=== PATIENT | female | born 1970 | race Caucasian/White ===

== ENCOUNTER 2020-04-26 13:58 | Outpatient (REF) | payer MEDICAID, SELFPAY | END 2020-04-26 13:59 | disposition home or self-care (01) | LOC: HO.LAB 13:58 | PROVIDERS: Visit Provider Internal Medicine | DX: Z20.828 Contact with and (suspected) exposure to other viral communicable diseases (principal) | CPT/HCPCS: C9803; U0003 ==

== ENCOUNTER 2021-03-14 13:25 | Outpatient (REF) | payer MEDICAID, SELFPAY | END 2021-03-14 13:26 | disposition home or self-care (01) | LOC: HO.LAB 13:25 | PROVIDERS: PCP Registered Nurse Community Health; Visit Provider Obstetrics & Gynecology | DX: R87.612 Low grade squamous intraepithelial lesion on cytologic smear of cervix (LGSIL) (principal) | CPT/HCPCS: 57454; 88305 ==

== ENCOUNTER 2021-04-11 13:56 | Outpatient (REF) | payer MEDICAID, SELFPAY ==
[2021-04-11 14:50] LABS: Hematocrit 36.4 % (37.0-47.0); Hemoglobin 11.6 g/dl (12.0-16.0); Mean Corpuscular HGB Conc 31.9 g/dl (31.0-35.0); Mean Corpuscular Hemoglobin 26.7 pg (27.0-33.0); Mean Corpuscular Volume 83.9 fL (80.0-98.0); Mean Platelet Volume 10.4 fL (9.4-12.3); Platelet Count 250 X10*3/uL (160-400); Red Blood Count 4.34 X10*6/uL (4.20-5.50); Red Cell Distribution Width 14.3 % (11.0-16.0); White Blood Count 6.2 X10*3/uL (4.8-10.8)
[2021-04-11 15:45] LABS: HCG Quantitative < 2 mIU/mL; TSH reflex Free T4 1.05 uIU/mL (0.32-4.0)
== END 2021-04-11 13:57 | disposition home or self-care (01) ==
LOC: HO.LAB 13:56
PROVIDERS: PCP Registered Nurse Community Health; Visit Provider Obstetrics & Gynecology
DX: N92.0 Excessive and frequent menstruation with regular cycle (principal); N87.0 Mild cervical dysplasia; N93.9 Abnormal uterine and vaginal bleeding, unspecified
CPT/HCPCS: 36415; 84443; 84702; 85027; 99212

== ENCOUNTER 2021-04-23 12:51 | Outpatient (REF) | payer MEDICAID, SELFPAY ==
--- NOTE | ~2021-04-23 | US_ITS ---
EXAMINATION: US PELVIS CLINICAL INFORMATION: Abnormal uterine and vaginal bleeding. COMPARISON: None TECHNIQUE: Ultrasound of the pelvis is performed using both transabdominal and transvaginal transducers along with Doppler. Transvaginal imaging is performed due to inadequate visualization transabdominally. FINDINGS: Uterus: The uterus is anteverted, anteflexed and measures 7.2 cm in length, 3.7 seen AP and 4.0 cm in transverse dimension. The double wall endometrial thickness is 0.39 cm. The uterus is smooth in contour and has normal myometrial echogenicity. No visible fibroid. There are numerous nabothian cysts and calcification seen in the cervix. Adnexa: Both ovaries are visualized. There is normal color flow to the adnexa. There is no ovarian torsion. There is no pelvic ascites or fluid collection. Right ovary measures 2.6 x 1.36 x 1.57 cm and volume 2.92 mL. It appears unremarkable. Left ovary measures 2.08 x 1.26 x 2.24 cm and volume 3.01 mL. There is no free fluid in the cul-de-sac. US/US pelvic and transvaginal IMPRESSION: Several nabothian cysts in the cervix with calcification. Unremarkable ovaries. There is no free fluid in cul-de-sac.
== END 2021-04-23 12:52 | disposition home or self-care (01) ==
LOC: HO.US 12:51
PROVIDERS: PCP Registered Nurse Community Health; Visit Provider Obstetrics & Gynecology
DX: N93.9 Abnormal uterine and vaginal bleeding, unspecified (principal)
CPT/HCPCS: 76830; 76856

== ENCOUNTER 2021-04-24 13:41 | Outpatient (REF) | payer MEDICAID, SELFPAY ==
--- NOTE | ~2021-04-24 | MM_ITS ---
EXAMINATION: MM SCREENING DIGITAL BREAST TOMOSYNTHESIS, BILATERAL CLINICAL INFORMATION: Screening. Asymptomatic. The lifetime risk of breast cancer based on the Tyrer-Cuzick Model is 12%. COMPARISON: Mammography: 10/02/2017, 09/19/2016 TECHNIQUE: Digital breast tomosynthesis is performed in both the craniocaudal and mediolateral oblique views along with computer-aided detection (CAD). Synthesized 2D images are generated from the tomosynthesis. FINDINGS: The breasts are heterogeneously dense, which may obscure small masses (ACR BI-RADS breast composition Category c). There are no significant masses, abnormal calcifications, or other abnormalities. MM/MM tomosynthesis screening BI IMPRESSION: No mammographic evidence of malignancy. ASSESSMENT: BI-RADS 1: Negative RECOMMENDATION: Routine annual mammography screening. This patient's information was entered into a reminder system with a target due date for their next mammogram.
== END 2021-04-24 13:42 | disposition home or self-care (01) ==
LOC: HO.MAMMO 13:41
PROVIDERS: PCP Nurse Practitioner Family; Visit Provider Advanced Practice Midwife
DX: Z12.31 Encounter for screening mammogram for malignant neoplasm of breast (principal)
CPT/HCPCS: 77063; 77067

== ENCOUNTER 2021-05-08 12:58 | Outpatient (REF) | payer MEDICAID, SELFPAY ==
[2021-05-10 04:28] LABS: CT PCR NOT DETECTED (Not Detect.); NG PCR NOT DETECTED (Not Detect.)
== END 2021-05-08 12:59 | disposition home or self-care (01) ==
LOC: HO.LAB 12:58
PROVIDERS: PCP Registered Nurse Community Health; Visit Provider Obstetrics & Gynecology
DX: N92.0 Excessive and frequent menstruation with regular cycle (principal); N87.0 Mild cervical dysplasia
CPT/HCPCS: 58100; 87491; 87591; 88305

== ENCOUNTER → 2021-05-23 13:59 | Outpatient (BNVA) | payer MEDICAID, SELFPAY | PROVIDERS: PCP Registered Nurse Community Health; Visit Provider Obstetrics & Gynecology | DX: N92.0 Excessive and frequent menstruation with regular cycle (principal) | CPT/HCPCS: 99212 ==

== ENCOUNTER 2022-12-30 15:46 | Outpatient (REF) | payer MEDICAID, SELFPAY ==
[2022-12-30 18:14] LABS: TSH reflex Free T4 1.73 uIU/mL (0.32-4.0); Vitamin D 25-OH Total 78.7 ng/mL (>30)
== END 2022-12-30 15:47 | disposition home or self-care (01) ==
LOC: HO.HHCL 15:46
PROVIDERS: Visit Provider Registered Nurse
DX: E03.8 Other specified hypothyroidism (principal); E55.9 Vitamin D deficiency, unspecified
CPT/HCPCS: 36415; 82306; 84443

== ENCOUNTER 2023-03-10 08:43 | Outpatient (REF) | payer MEDICAID, SELFPAY ==
[2023-03-10 11:35] LABS: MANUAL DIFF FLAG NO
[2023-03-10 11:44] LABS: Basophils Percent Auto 0.6 % (0-2); Hematocrit 38.7 % (37.0-47.0); Hemoglobin 12.2 g/dl (12.0-16.0); Imm Gran Abs Auto 0.02 X10*3/uL (0.00-0.03); Imm Gran Pct Auto 0.4 % (0.0-0.4); Lymphocytes Absolute Auto 1.5 X10*3/uL (1.2-4.9); Lymphocytes Percent Auto 28.7 % (20-40); Mean Corpuscular HGB Conc 31.5 g/dl (31.0-35.0); Mean Corpuscular Hemoglobin 27.1 pg (27.0-33.0); Mean Corpuscular Volume 85.8 fL (80.0-98.0); Mean Platelet Volume 11.5 fL (9.4-12.3); Monocytes Absolute Auto 0.4 X10*3/uL (0.1-1.2); Neutrophils Absolute Auto 3.3 x10*3/uL (2.0-8.3); Neutrophils Percent Auto 62.3 % (45-73); Platelet Count 219 X10*3/uL (160-400); Red Blood Count 4.51 X10*6/uL (4.20-5.50); Red Cell Distribution Width 13.6 % (11.0-16.0); White Blood Count 5.2 X10*3/uL (4.8-10.8)
[2023-03-10 11:59] LABS: Estimated Average Glucose 114 mg/dL; Hemoglobin A1c % 5.6 % (<6.0)
[2023-03-10 12:45] LABS: Alanine Aminotransferase 6 U/L (0-31); Albumin Level 4.4 g/dL (3.5-5.0); Alkaline Phosphatase 122 U/L (39-117); Anion Gap 12 (12-20); Aspartate Amino Transferase 13 U/L (5-31); Bilirubin Total 0.6 mg/dL (0.0-1.0); Blood Urea Nitrogen 12 mg/dL (9-16); Calcium 9.6 mg/dL (8.4-10.2); Carbon Dioxide 24 mmol/L (22-29); Chloride 106 mmol/L (96-108); Cholesterol 216 mg/dL (<200); Estimated Glomerular Filt Rate 57; Glucose Random 124 mg/dL (60-115); HDL Cholesterol 43 mg/dL (>40); LDL Cholesterol Calculated 144 mg/dL (<100); Potassium 3.8 mmol/L (3.3-5.1); Sodium 138 mmol/L (135-145); Total Protein 7.6 g/dL (6.5-8.0); Triglycerides 149 mg/dL (<150)
== END 2023-03-10 08:44 | disposition home or self-care (01) ==
LOC: HO.HHCL 08:43
PROVIDERS: PCP Registered Nurse Psychiatric/Mental Health; Visit Provider Registered Nurse Psychiatric/Mental Health
DX: Z79.899 Other long term (current) drug therapy (principal)
CPT/HCPCS: 36415; 80053; 80061; 83036; 85025

== ENCOUNTER 2023-07-21 13:21 | Outpatient (AMB) | payer MEDICAID, SELFPAY ==
--- NOTE | 2023-07-21 13:25 | A.OFFVIS_ITS ---
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 Complaining of irregular menstrual cycles associated with passage of blood clots and pelvic cramping. In addition the patient is complaining of leakage of urine upon sneezing, coughing or lifting heavy object Last Pap/HPV was in 03/29 [facility], followed by colpo/biopsy which showed MADHAV 1 Last Mammogram was in 04/29 was BI-RADS 1 No previous screening Colonoscopy [facility] [place] Medical History ASCUS with positive high risk HPV cervical Sjogren syndrome with central nervous system involvement Hypothyroidism PTSD (post-traumatic stress disorder) Schizoaffective disorder Social History Patient Tobacco Use Status: Never used Tobacco Female Reproductive History Menstrual Age of Menarche: 16 Duration of menses: 6-7 days Date of last menstrual period: 07/15/23 Total pregnancies: 0 Full term: 0 History of abnormal pap smear: Yes (2016 ascus HPV) Review of Systems Const All systems reviewed & are unremarkable except as noted in HPI and below Card Reports as per HPI Resp Reports as per HPI GI Reports as per HPI and Reports no additional complaints Reports as per HPI Physical Exam Vital Signs: Last Vital Signs BP 116/62 07/21/23 13:47 Const General: cooperative, healthy appearing and comfortable Chest Chest palpation & inspection: normal inspection of the chest and normal palpation of entire chest wall Breast/axilla inspection: normal inspection of the breasts and normal inspection of the axillae Breast/axilla palpation: normal palpation of the breasts, normal palpation of the axillae and no axillary lymphadenopathy Resp Effort & Inspection: normal respiratory effort Auscultation: clear to auscultation bilaterally Percussion: percussion normal Cardio Palpation: normal PMI Rate: regular rate Rhythm: regular rhythm Heart sounds: no murmurs and no rubs Peripheral pulses: Peripheral pulses 2+ throughout GI Inspection: Yes normal to inspection Palpation (GI): Soft to palpation, nontender, no guarding, not rigid and No hepatosplenomegaly present Percussion: Yes normal to percussion Auscultation: normal bowel sounds Rectal Exam - Female: deferred General: Yes bladder normal to palpation External Female Exam: No lesion Speculum Exam - Vagina: normal appearance of the vagina, normal palpation, normal vaginal discharge and not erythematous Speculum Exam - Cervix: normal appearance of the cervix and normal palpation Bimanual exam- vagina & uterus: normal bimanual exam, normal palpation, uterine size normal, bladder normal to palpation, consistency normal and normal palpation Bimanual Exam- Adnexa, other: normal adnexae, no masses and no tenderness Assessment & Plan Assessment & Plan (1) Well woman exam: Comment: MADHAV 1 in 2020 Code(s): Z01.419 - Encounter for gynecological examination (general) (routine) without abnormal findings Plan: Co testing done. Counseled the patient about the recommended dietary allowance of 1200 mg of Calcium & 600 IU of vitamin D. Mammogram ordered. The patient was referred to GI for screening colonoscopy . The patient was instructed to perform monthly self-breast exams and schedule annual exam in a year. All questions answered and the patient verbalized understanding. (2) Abnormal uterine bleeding (AUB): Code(s): N93.9 - Abnormal uterine and vaginal bleeding, unspecified Plan: Co testing done, GC and chlamydia taken CBC, TSH, prolactin, FSH/LH, HCG, and pelvic ultrasound ordered. Discussed with the patient the different causes of abnormal bleeding including thyroid disorders, uterine and ovarian pathology, endometrial hyperplasia, carcinoma and other potential causes. Discussed with the patient the work up including CBC (to r/o anemia), TSH, prolactin, FSH/LH, pelvic Ultrasound, endometrial biopsy to r/o endometrial pathology. All questions answered and the patient verbalized understanding. Instructed the patient to schedule an appointment for an endometrial biopsy in 2 weeks. (3) Urine incontinence: Code(s): R32 - Unspecified urinary incontinence Plan: Urine dip done in the office showed microscopic hematuria, will send urine culture. To check the results and treat accordingly. Instructions given the patient to schedule a 2 week follow-up appointment (4) Microscopic hematuria: Code(s): R31.29 - Other microscopic hematuria Plan: Urine dip showed microscopic hematuria, will send urine for culture, if positive will treat if negative repeat urine dip in 2 weeks, if persistent microscopic hematuria will order CT scan and refer to urology. Instructions given the patient to schedule a 2 week urine dip appointment Orders: Orders MM tomosynthesis screening BI Today Z12.31 - Encounter for screening mammogram for malignant neoplasm of breast HCG Quantitative Today N93.9 - Abnormal uterine and vaginal bleeding, unspecified Complete Blood Count no Diff Today N93.9 - Abnormal uterine and vaginal bleeding, unspecified Follicle Stimulating Hormone Today N93.9 - Abnormal uterine and vaginal bleeding, unspecified Lutenizing Hormone Today N93.9 - Abnormal uterine and vaginal bleeding, unspecified TSH reflex Free T4 Today N93.9 - Abnormal uterine and vaginal bleeding, unspecified Prolactin Today N93.9 - Abnormal uterine and vaginal bleeding, unspecified US pelvic and transvaginal Today N93.9 - Abnormal uterine and vaginal bleeding, unspecified Referrals Gastroenterology Referral Z12.11 - Encounter for screening for malignant neoplasm of colon Coding Level of Care Code Est Pt Prev Care 40-64y(20656) Diagnoses Well woman exam Z01.419 Abnormal uterine bleeding (AUB) N93.9 Urine incontinence R32 Microscopic hematuria R31.29
[2023-07-21 13:47] VITALS: BP 116/62
== END 2023-07-21 14:16 | disposition home or self-care (01) ==
LOC: HO.HWS 13:21
PROVIDERS: PCP Registered Nurse Psychiatric/Mental Health; Visit Provider Obstetrics & Gynecology
DX: Z01.419 Encounter for gynecological examination (general) (routine) without abnormal findings (principal); N93.9 Abnormal uterine and vaginal bleeding, unspecified; R32 Unspecified urinary incontinence; R31.29 Other microscopic hematuria
CPT/HCPCS: 99396

== ENCOUNTER 2023-07-21 13:21 | Outpatient (REF) | payer MEDICAID, SELFPAY ==
[2023-07-21 17:23] LABS: CT PCR NOT DETECTED (Not Detect.); NG PCR NOT DETECTED (Not Detect.)
[2023-07-25 05:44] LABS: HPV 16 RNA NOT DETECTED (NOT DETECTED); HPV mRNA E6/E7 rflx Detected (Not Detected)
== END 2023-07-21 13:22 | disposition home or self-care (01) ==
LOC: HO.LNP 13:21
PROVIDERS: PCP Registered Nurse Psychiatric/Mental Health; Visit Provider Obstetrics & Gynecology
DX: Z01.419 Encounter for gynecological examination (general) (routine) without abnormal findings (principal); Z11.51 Encounter for screening for human papillomavirus (HPV); N93.9 Abnormal uterine and vaginal bleeding, unspecified; R32 Unspecified urinary incontinence; R31.29 Other microscopic hematuria
CPT/HCPCS: 0353U; 87086; 87624; 87625; 88142; 99396

== ENCOUNTER 2023-07-21 14:16 | Outpatient (REF) | payer MEDICAID, SELFPAY | END 2023-07-21 14:17 | disposition home or self-care (01) | LOC: HO.LAB 14:16 | PROVIDERS: Visit Provider Obstetrics & Gynecology | DX: Z13.89 Encounter for screening for other disorder (principal) ==

== ENCOUNTER 2023-08-04 13:19 | Outpatient (REF) | payer MEDICAID, SELFPAY ==
--- NOTE | ~2023-08-04 | US_ITS ---
EXAMINATION: US PELVIS CLINICAL INFORMATION: Abnormal uterine bleeding, last menstrual period 07/15/2023. COMPARISON: Pelvic ultrasound of 04/23/2021. TECHNIQUE: Ultrasound of the pelvis is performed using both transabdominal and transvaginal transducers along with Doppler. Transvaginal imaging is performed due to inadequate visualization transabdominally. FINDINGS: The uterus measures 7.7 x 2.9 x 3.6 cm. No discrete fibroids appreciated. Endometrial thickness is 5 mm. Echogenic foci characteristic of calcifications and nabothian cysts in the cervix. Similar findings demonstrated on the prior exam. No significant free fluid. Right ovary measures 2.3 x 1.6 x 1.1 cm, volume 2.1 mL and is unremarkable. Left ovary measures 1.9 x 1.5 x 1.3 cm, volume of 1.9 mL and is unremarkable. US/US pelvic and transvaginal IMPRESSION: Endometrial thickness is 5 mm. Gynecologic consultation, correlation with clinical exam and possible biopsy recommended for this patient with abnormal uterine bleeding. Unremarkable bilateral ovaries. No discrete fibroids.
== END 2023-08-04 13:20 | disposition home or self-care (01) ==
LOC: HO.US 13:19
PROVIDERS: PCP Registered Nurse Psychiatric/Mental Health; Visit Provider Obstetrics & Gynecology
DX: N93.9 Abnormal uterine and vaginal bleeding, unspecified (principal)
CPT/HCPCS: 76830; 76856

== ENCOUNTER 2023-08-25 11:52 | Outpatient (REF) | payer MEDICAID, SELFPAY | END 2023-08-25 11:53 | disposition home or self-care (01) | LOC: HO.MAMMO 11:52 | PROVIDERS: PCP Registered Nurse; Visit Provider Obstetrics & Gynecology | DX: Z12.31 Encounter for screening mammogram for malignant neoplasm of breast (principal) | CPT/HCPCS: 77063; 77067 ==

== ENCOUNTER → 2023-08-25 11:55 | Outpatient (BNV) | payer MEDICAID, SELFPAY | PROVIDERS: PCP Registered Nurse; Visit Provider Radiology Diagnostic Radiology | DX: Z12.31 Encounter for screening mammogram for malignant neoplasm of breast (principal) | CPT/HCPCS: 77063; 77067 ==

== ENCOUNTER 2023-08-26 12:44 | Outpatient (AMB) | payer MEDICAID, SELFPAY ==
--- NOTE | 2023-08-26 13:14 | A.OFFVIS_ITS ---
Intake Vital Signs 08/26/23 13:17 Height 5 ft 4 in Weight 222 lb 10.67 oz BMI 38.2 Intake Visit Reasons: pain with intercourse Cancer Genetic Counselor Required: No Information Interpreted: non-clinical & clinical Data Entry Manager: Data Entry Manager Present (Malorie WHITE) Accompanied by: Self / Same As Patient Allergies Sulfa (Sulfonamide Antibiotics) [SULFA (SULFONAMIDE ANTIBIOTICS)] Allergy (Unknown, Verified 08/26/23 13:17) UNKNOWN HPI HPI Comments History of Present Illness Details Presenting complaining of vaginal irritation, pain and discharge that started 2 weeks ago [facility] Medical History ASCUS with positive high risk HPV cervical Sjogren syndrome with central nervous system involvement Hypothyroidism PTSD (post-traumatic stress disorder) Schizoaffective disorder Social History Patient Tobacco Use Status: Never used Tobacco Female Reproductive History Menstrual Age of Menarche: 16 Review of Systems Const All systems reviewed & are unremarkable except as noted in HPI and below Physical Exam Vital Signs: BMI result Body Mass Index 38.2 General: Yes no CVA tenderness External Female Exam: normal external appearance and normal appearance of the urethra Speculum Exam - Vagina: normal appearance of the vagina, normal palpation, no lesions and no masses Speculum Exam - Cervix: normal appearance of the cervix, normal palpation, no lesions, no masses and nontender Bimanual exam- vagina & uterus: normal bimanual exam, normal palpation, uterine size normal, normal palpation, uterine shape normal, No Cervical tenderness present and non-tender Bimanual Exam- Adnexa, other: normal adnexae Back/Spine/Pelvis Back: no CVA tenderness Assessment & Plan Assessment & Plan (1) Bacterial vaginosis: Code(s): N76.0 - Acute vaginitis; B96.89 - Other specified bacterial agents as the cause of diseases classified elsewhere Plan: GC and chlamydia cultures with BV panel taken. Per CDC recommendation, will screen for STI, HepBs Ag, HIV, RPR, Hep C Ab ordered. Will treat with Flagyl 500 mg p.o. b.i.d. x 7 days, Instructions given to the patient to refrain from sexual activity or to use condoms consistently and correctly during the BV treatment regimen, not to douch, it might increase the risk for relapse, and to call if symptoms persist or recur. Orders: Orders Hepatitis C Antibody Today B96.89 - Other specified bacterial agents as the cause of diseases classified elsewhere, N76.0 - Acute vaginitis Hepatitis B Surface Antigen Today B96.89 - Other specified bacterial agents as the cause of diseases classified elsewhere, N76.0 - Acute vaginitis HIV Ab/Ag Today B96.89 - Other specified bacterial agents as the cause of diseases classified elsewhere, N76.0 - Acute vaginitis Syphilis Screen Today B96.89 - Other specified bacterial agents as the cause of diseases classified elsewhere, N76.0 - Acute vaginitis Medications: New metronidazole 500 mg PO BID 14 tabs 0RF 7 days Coding Level of Care Code Est Pt Level 3 (89672) Diagnoses Bacterial vaginosis N76.0; B96.89
[2023-08-26 13:17] VITALS: BMI 38.2
== END 2023-08-26 13:35 | disposition home or self-care (01) ==
PROVIDERS: PCP Registered Nurse; Visit Provider Obstetrics & Gynecology
DX: N76.0 Acute vaginitis (principal); B96.89 Other specified bacterial agents as the cause of diseases classified elsewhere
CPT/HCPCS: 99213

== ENCOUNTER 2023-08-26 12:44 | Outpatient (REF) | payer MEDICAID, SELFPAY ==
[2023-08-26 18:07] LABS: CT PCR NOT DETECTED (Not Detect.); NG PCR NOT DETECTED (Not Detect.)
[2023-08-27 13:52] LABS: BV Int Neg Control Negative (Negative); BV Int Pos Control Positive (Positive)
== END 2023-08-26 12:45 | disposition home or self-care (01) ==
LOC: HO.LNP 12:44
PROVIDERS: PCP Registered Nurse; Visit Provider Obstetrics & Gynecology
DX: N76.0 Acute vaginitis (principal); B96.89 Other specified bacterial agents as the cause of diseases classified elsewhere; N94.10 Unspecified dyspareunia
CPT/HCPCS: 0353U; 87480; 87510; 87660; 99212

== ENCOUNTER 2023-09-09 11:31 | Outpatient (AMB) | payer MEDICAID, SELFPAY ==
[2023-09-09 11:55] VITALS: BP 130/82; BMI 38.1
--- NOTE | 2023-09-09 11:55 | A.OFFVIS_ITS ---
Intake Vital Signs 09/09/23 11:55 Height 5 ft 4 in Weight 222 lb BMI 38.1 BP 130/82 Intake Visit Reasons: Colpo/ EMB/Ultrasound follow up Vending Supervisor Required: No Wide Area Network Systems Administrator: Wide Area Network Systems Administrator Present (Aidyn) Allergies Sulfa (Sulfonamide Antibiotics) [SULFA (SULFONAMIDE ANTIBIOTICS)] Allergy (Unknown, Verified 09/09/23 11:56) UNKNOWN Post menopausal: No HPI HPI Comments History of Present Illness Details Presenting for colposcopy for ascus/HPV positive and EMB for AUB [facility] Medical History (Updated 09/09/23 @ 12:07 by Tre King MD) ASCUS with positive high risk HPV cervical Sjogren syndrome with central nervous system involvement Hypothyroidism PTSD (post-traumatic stress disorder) Schizoaffective disorder Social History Patient Tobacco Use Status: Never used Tobacco Female Reproductive History Menstrual Age of Menarche: 16 control method: none Date of last pap smear: 07/22/23 (ASCUS +HPV) Review of Systems Const All systems reviewed & are unremarkable except as noted in HPI and below Reports as per HPI and Reports no additional complaints GI Reports no additional complaints Reports no additional complaints Physical Exam Vital Signs: Last Vital Signs BP 130/82 09/09/23 11:55 BMI result Body Mass Index 38.1 Office Procedures Colposcopy Before the procedure was started discussed with the patient the procedure, alternatives & all the risks associated with the procedure (bleeding, infection, injury to vagina, bladder, vessels, possible need for transfusion with all its risks) then patient signed the consent Pap smear = ascus/HPV positive Urine test done in the office was negative Speculum inserted, acetic acid used Colposcopy done Transformation zone seen, acetowhite lesions identified at 9+ 11+1 o?clock, cervical biopsies taken from 9+11 o?clock, ECC done afterwards. Vaginoscopy of the upper vagina showed no evidence of any aceto-white lesions Monsel solution used for hemostasis. The patient tolerated well . At the end the patient was instructed to call if temp>100.4, abdominal pain, n/v, bleeding; The patient was given the following instructions: nothing per vagina, no intercourse or bath tub use. All questions answered the patient verbalized understanding. Instructed the patient to make an appointment in 2 weeks for follow-up This note was generated with a voice recognition program. Some errors may have been overlooked during the review of this note. Sometimes these errors may affect the content or meaning of a given sentence. [id number] of cervix including upper vagina with biopsy and ECC Procedure code (CPT) selection complete Endometrial Biopsy Details: The patient was counseled regarding the indication and benefits of endometrial sampling to rule out endometrial pathology including not limited to endometrial hyperplasia or endometrial cancer and others; The alternatives (Either do nothing vs. hysteroscopy D&C) & the risks were discussed with the patient including but not limited: pain, uterine perforation, bleeding, infection, possible injury to bladder, bowel, ureter, possible need for blood transfusion with all its possible risks. The patient verbalized understanding all questions answered and signed consent. Urine test done in the office was negative The patient was placed into the dorsal lithotomy position; a speculum was inserted in the vagina. Using aseptic technique for the procedure, the cervix was cleansed with Betadine. The anterior lip of the cervix was grasped with a single tooth tenaculum. The uterus was sounded to 7 cm with a 4 mm Pipelle was used. Tissues samples were obtained and placed in formalin, in a patient labeled container and sent to the pathology department. At the end of the procedure, there was minimal bleeding noted The patient tolerated the procedure well and was discharged in good condition with the following instructions: Nothing in the vagina until the bleeding stops. No sex until the bleeding stops, to call if any of the following occurs: fever (>100.4), flu-like symptoms, abdominal pain, heavy bleeding, four smelling vaginal discharge. The patient was instructed to schedule a Follow up appointment in 2 weeks to discuss pathology results of the biopsy and treatment options. This note was generated with a voice recognition program. Some errors may have been overlooked during the review of this note. Sometimes these errors may affect the content or meaning of a given sentence. [id number]-Jmoqmwwirzk Biopsy Results AMB Test Urine AMB Test Urine Negative Last Edit by CINDY Armstrong on 09/09/23 11:58 Assessment & Plan Assessment & Plan (1) Abnormal uterine bleeding (AUB): Code(s): N93.9 - Abnormal uterine and vaginal bleeding, unspecified Plan: EMB done see procedure note (2) ASCUS with positive high risk HPV cervical: Comment: 2016 ascus HPV positive, colpo negative Code(s): R87.610 - Atypical squamous cells of undetermined significance on cytologic smear of cervix (ASC-US); R87.810 - Cervical high risk human papillomavirus (HPV) DNA test positive Plan: Colposcopy/biopsy/ECC done, see procedure note Orders: Orders AMB HCG Urine Test Today Z32.02 - Encounter for test, result negative AMB Colposcopy Today R87.610 - Atypical squamous cells of undetermined significance on cytologic smear of cervix (ASC-US), R87.810 - Cervical high risk human papillomavirus (HPV) DNA test positive AMB Endometrial Biopsy Today N93.9 - Abnormal uterine and vaginal bleeding, unspecified Coding Level of Care Code Procedure Only Diagnoses Abnormal uterine bleeding (AUB) N93.9 ASCUS with positive high risk HPV cervical R87.610; R87.810 CPT Codes Colposcopy - CPT: 27702-Qydntpeql of cervix including upper vagina with biopsy and ECC ([id number]) Endometrial Biopsy - CPT: 55584-Ndljorupljy Biopsy ([id number])
== END 2023-09-09 13:00 | disposition home or self-care (01) ==
LOC: HO.HWS 11:31
PROVIDERS: PCP Registered Nurse; Visit Provider Obstetrics & Gynecology
DX: R87.610 Atypical squamous cells of undetermined significance on cytologic smear of cervix (ASC-US) (principal); R87.810 Cervical high risk human papillomavirus (HPV) DNA test positive; N93.9 Abnormal uterine and vaginal bleeding, unspecified; Z32.02 Encounter for pregnancy test, result negative
CPT/HCPCS: 57454; 58110

== ENCOUNTER 2023-09-09 11:31 | Outpatient (REF) | payer MEDICAID, SELFPAY | END 2023-09-09 11:32 | disposition home or self-care (01) | LOC: HO.LNP 11:31 | PROVIDERS: PCP Registered Nurse; Visit Provider Obstetrics & Gynecology | DX: R87.610 Atypical squamous cells of undetermined significance on cytologic smear of cervix (ASC-US) (principal); R87.810 Cervical high risk human papillomavirus (HPV) DNA test positive | CPT/HCPCS: 88305 ==

== ENCOUNTER 2023-09-09 12:25 | Emergency (ER) | payer MEDICAID, SELFPAY ==
[2023-09-09 12:41] VITALS: BP 117/69; PULSE 80; RESP 19; TEMP 36.6; O2SAT 98; BMI 38.6
--- NOTE | 2023-09-09 13:04 | PC.NURSE ---
Patient comes to the ER after getting biopsy done down there . Patient reports she is having some increased anxiety regarding the biopsy potentially coming back as cancer. Pt relays that she is having some increased stress due to the whole situations due to her medical related PTSD. Pt is calm and cooperative, offering no complaints to this RN. endorses 4/10 pain around vaginal area
[2023-09-09 13:12] VITALS: RESP 14
--- NOTE | 2023-09-09 13:20 | ED.GENADULT ---
HPI - General Adult General Chief complaint: Anxiety Stated complaint: Crisis Time Seen by Provider: 09/09/23 13:20 Source: patient Mode of arrival: ambulatory Limitations: no limitations History of Present Illness HPI narrative: Patient is a 53 year old assigned female at with a history of recent cervical dysplasia diagnosis presenting to the emergency department today with increased anxiety around her recent diagnosis. Patient states that she is feeling more worked up after being told she may have cervical cancer at her OBGYN appointment. Patient states that she had a therapist but she was recently promoted and she hasn't established with someone else in the practice. Patient denies any thoughts of harming herself or others, dizziness, lightheadedness, abdominal pain, nausea, vomiting, fever, chills, blurry vision, double vision, loss of vision, chest pain, difficulty breathing, shortness of breath, back pain, night sweats, pain with urination, increased urinary frequency, increased urinary urgency, blood in her urine or stool, syncope or a near syncopal episode, recent trauma or falls, bowel incontinence, bladder incontinence, bowel retention, bladder retention, or any other complaints at this time. Relieving factors: none Exacerbating factors: none Associated symptoms: denies other symptoms Treatments prior to arrival: none Related Data Home Medications Medication Instructions Recorded Confirmed mirtazapine 15 mg tablet (Remeron) 15 mg PO DAILY 03/14/21 oxcarbazepine 300 mg tablet 300 mg PO BID 03/14/21 (Trileptal) polyethylene glycol 3350 17 17 g PO DAILY 03/14/21 gram/dose oral powder (Miralax) levothyroxine 75 mcg tablet 75 mcg PO DAILY 07/21/23 (Levoxyl) linaclotide 72 mcg capsule 72 mcg PO DAILY 07/21/23 (Linzess) olanzapine 10 mg tablet (Zyprexa) 10 mg PO DAILY 07/21/23 oxcarbazepine 150 mg tablet 150 mg PO DAILY 07/21/23 (Trileptal) pilocarpine HCl 5 mg tablet 10 mg PO TID 07/21/23 propranolol 40 mg tablet 40 mg PO BID 07/21/23 fluticasone propionate 50 spray intranasal 09/09/23 mcg/actuation nasal spray,suspension Allergies Allergy/AdvReac Type Severity Reaction Status Date / Time Sulfa (Sulfonamide Allergy Unknown UNKNOWN Verified 09/09/23 12:41 Antibiotics) [SULFA (SULFONAMIDE ANTIBIOTICS)] Review of Systems Constitutional: Constitutional: Reports no additional constitutional complaints, Denies chills, Denies fever(s) and Denies night sweats Eyes: Eyes: Reports no additional eye complaints, Denies blurry vision, Denies change in vision, Denies diplopia, Denies eye discharge, Denies loss of vision and Denies eye pain ENT: Denies dizziness Cardiovascular: Cardiovascular: Reports no additional cardiovascular complaints, Denies chest pain, Denies lightheadedness, Denies Loss of Consciousness and Denies dyspnea Respiratory: Respiratory: Reports no additional respiratory complaints and Denies dyspnea Gastrointestinal: Gastrointestinal: Reports no additional gastrointestinal complaints, Denies abdominal pain, Denies melena, Denies hematochezia, Denies change in bowel habits and Denies change in stool character Genitourinary: Genitourinary: Denies hematuria, Denies urinary frequency, Denies dysuria, Denies urinary incontinence, Denies urinary hesitancy and Denies urinary urgency Musculoskeletal: Musculoskeletal: Reports no additional musculoskeletal complaints, Denies numbness and Denies tingling Neurologic: Denies dizziness, Denies loss of vision, Denies numbness and Denies tingling Psychiatric: Psychiatric: Reports anxiety, Denies homicidal ideation and Denies suicidal ideation Endocrine: Endocrine: Reports no additional endocrine complaints Hematologic/Lymphatic: Hematologic/Lymphatic: Reports no additional hematologic/lymphatic complaints Allergic/Immunologic: Allergic/Immunologic: Reports no additional allergic/immunologic complaints [facility] Past Medical History Attestation statement: The following information was validated with the patient. Source: old records reviewed and nursing notes reviewed Medical History ASCUS with positive high risk HPV cervical Sjogren syndrome with central nervous system involvement Hypothyroidism PTSD (post-traumatic stress disorder) Schizoaffective disorder Social History Social History Patient Tobacco Use Status: Never used Tobacco Smoked in Last 30 Days: No Use of substances other than those prescribed or required for medical reasons: Yes Substance Use Type: Marijuana Substance Use Frequency: Occasionally Advance Directives: Yes Advance Directives Information Provided: Yes Advance Directives on File: No Patient : No Physical Exam ED Vital Signs: Vital Signs - 24 hr 09/09/23 12:41 09/09/23 13:12 09/09/23 13:30 Temperature 98 F 98.0 F Pulse Rate 80 80 Respiratory Rate 19 14 19 Blood Pressure 117/69 117/69 Pulse Oximetry 98 98 Oxygen Delivery Method Room Air BMI result Body Mass Index 38.6 Const General: cooperative, no acute distress, alert and awake Nutritional Appearance: well nourished Orientation/consciousness: patient oriented x3 Limitations: no limitations HENMT Head: Yes normal to inspection and Yes atraumatic Ears: hearing grossly normal bilaterally and external ears normal General nose exam: Normal external nose present, no nasal discharge noted and no epistaxis Face and sinus: Yes normal facial exam, No abrasion and No laceration Mouth: Normal oral and palatal mucosa present, no drooling and no muffled voice Eyes General: appearance normal, both eyes and all related structures Periorbital: periorbital findings normal Eyelids: Yes eyelids normal Conjunctivae: conjunctivae normal Pupils: Equal, round and reactive pupils present EOM: EOMs intact bilaterally Neck Neck: Yes normal visual inspection, Yes full ROM and Yes no lymphadenopathy Chest Chest palpation & inspection: normal inspection of the chest Resp Effort & Inspection: normal respiratory effort and able to speak in complete sentences GI Inspection: Yes normal to inspection Neuro General: patient oriented x3 and moves all extremities Cranial nerves: Yes Equal, round and reactive pupils present Cognition (Neuro): normal cognition Motor exam (neuro): 5/5 motor strength present throughout Sensory Exam: Normal double simultaneous stimulation for sensation Coordination: [id number] test normal Extrem General: Yes normal to inspection, Yes full ROM and Yes capillary refill normal Psych Appearance: grossly normal Mental Status: mental status grossly normal Affect: Anxious affect present Attitude: cooperative Thought process: Normal thought process present Thought content: Normal thought content present Insight: Good insight present (Psych) Medical Decision Making Medical Decision Making MDM Narrative: Patient is a 53 year old assigned female at with a history of recent dysplasia of cervix diagnosis presenting to the emergency department today with increased anxiety. Patient's physical exam was unremarkable. I explained my physical exam findings to the patient. I answered all questions asked by the patient. I had a long conversation with the patient and provided as much information as appropriate for my scope of practice. Patient stated that she felt significantly better after conversing and would like to go home and establish with a new therapist. I stressed the importance of the patient taking her medication as prescribed. I stressed the importance of the patient following up with her primary care provider. I stressed the importance of the patient returning to the emergency department immediately if her symptoms were to worsen or if she were to develop any dizziness, shortness of breath, difficulty breathing, chest pain, blurry vision, loss of vision, nausea, vomiting, abdominal pain, fever, chills, back pain, or any other complaints. Patient verbalized agreement and understanding with this treatment plan and discharge. Differential Diagnosis Differential Diagnoses: The differential diagnosis associated with the presentation includes Anxiety Health anxiety Admission/Observation Consideration of admission/observation: Escalation of care including admission/observation considered Patient would have been admitted to the hospital had her clinical presentation warranted hospital admission. Discharge Plan Discharge Clinical Impression: Anxiety about health Patient Disposition: Home, Self-Care Instructions: Anxiety (ED) Additional Instructions: Please establish with a new therapist now that yours has been promoted. Follow up with your primary care provider. Return to the emergency department immediately if your symptoms worsen or if you develop any dizziness, shortness of breath, difficulty breathing, chest pain, blurry vision, loss of vision, nausea, vomiting, abdominal pain, fever, chills, back pain, or any other complaints. [facility]: [address] [place] [address] Walk in hours from 10am - 12pm Open from 10am - 12pm [facility] Crisis Services: [address] [place] [address] Walk in hours from 10am - 12pm Open 30/12 [facility]: [address] [place] [id number] [address] [place] [id number] Hours: M-F 8am to 8pm Friday and Friday 9am to 5pm Prescriptions: No Action oxcarbazepine [Trileptal] 300 mg tablet 300 mg PO BID mirtazapine [Remeron] 15 mg tablet 15 mg PO DAILY polyethylene glycol 3350 [Miralax] 17 gram/dose powder 17 g PO DAILY propranolol 40 mg tablet 40 mg PO BID oxcarbazepine [Trileptal] 150 mg tablet 150 mg PO DAILY olanzapine [Zyprexa] 10 mg tablet 10 mg PO DAILY levothyroxine [Levoxyl] 75 mcg tablet 75 mcg PO DAILY Linzess 72 mcg capsule 72 mcg PO DAILY pilocarpine HCl 5 mg tablet 10 mg PO TID fluticasone propionate 50 mcg/actuation spray,suspension intranasal Referrals: Mitzi Duffy FNP [Primary Care Provider] - Interventions: [place]-Suicide Risk Severity Scale Last Done: 09/09/23 13:01 ED Discharge Assessment Last Done: 09/09/23 13:30 Discharge Date/Time: 09/09/23 13:36 Print Language: Swedish
--- NOTE | 2023-09-09 13:27 | PC.NURSE ---
pt denies suicidal ideation, homicidal ideation, AH/VH. PRETTY Gomez talking with patient at this time
[2023-09-09 13:30] VITALS: BP 117/69; PULSE 80; RESP 19; TEMP 36.7; O2SAT 98
== END 2023-09-09 13:36 | disposition home or self-care (01) ==
PROVIDERS: Emergency Provider Emergency Medicine; PCP Registered Nurse
DX: F41.8 Other specified anxiety disorders (principal); N93.9 Abnormal uterine and vaginal bleeding, unspecified; R87.610 Atypical squamous cells of undetermined significance on cytologic smear of cervix (ASC-US); R87.810 Cervical high risk human papillomavirus (HPV) DNA test positive
CPT/HCPCS: 57454; 58110; 81025; 99284; 99285

== ENCOUNTER 2023-09-23 13:05 | Outpatient (AMB) | payer MEDICAID, SELFPAY ==
--- NOTE | 2023-09-23 13:30 | A.OFFVIS_ITS ---
Intake Vital Signs 09/23/23 13:33 Height 5 ft 4 in Weight 224 lb 13.944 oz BMI 38.6 BP 118/70 Intake Visit Reasons: Follow up Colpo/EMB/? pre-op Paster Hat Lining: Paster Hat Lining Present Allergies Sulfa (Sulfonamide Antibiotics) [SULFA (SULFONAMIDE ANTIBIOTICS)] Allergy (Unknown, Verified 09/09/23 12:41) UNKNOWN Is last menstrual period known: Yes Last menstrual period: 04/06/20 Post menopausal: No Patient : No Do you need a note to return to daycare/school/sports/work: Yes (for surgery on friday) HPI HPI Comments History of Present Illness Details Presenting post colpo /ECC/EMB for follow-up. The patient is doing well with no complaints. The pathology showed the following: A. Endocervix, curettage: Squamous mucosa with low-grade squamous intraepithelial lesion (mild dysplasia, MADHAV 1); endocervical glandular mucosa present. B. Endometrium, biopsy: Fragmented benign proliferative endometrium with possible benign polyp, and benign endocervical glandular mucosa; no atypia or carcinoma. C. Cervix, 1:00, biopsy: Squamous mucosa; negative for dysplasia; no endoce rvical glandular component present. D. Cervix, 9:00, biopsy: Squamous mucosa with low-grade squamous intraepithelial lesion (mild dysplasia, MADHAV 1); no endocervical glandular mucosa present. E. Cervix, 11:00, biopsy: Squamous mucosa; negative for dysplasia; no endocervical glandular component present The patient had cervical biopsy showing MADHAV 1 in 03/29 [facility] Medical History ASCUS with positive high risk HPV cervical Sjogren syndrome with central nervous system involvement Hypothyroidism PTSD (post-traumatic stress disorder) Schizoaffective disorder Social History Patient Tobacco Use Status: Never used Tobacco Substance Use Type: Marijuana Female Reproductive History Menstrual Age of Menarche: 16 Date of last menstrual period: 04/06/20 Total pregnancies: 2 Full term: 2 Review of Systems Card Reports as per HPI and Reports no additional complaints Resp Reports as per HPI and Reports no additional complaints GI Reports as per HPI and Reports no additional complaints Reports as per HPI Physical Exam Vital Signs: Last Vital Signs BP 118/70 09/23/23 13:33 BMI result Body Mass Index 38.6 Const General: cooperative, healthy appearing and comfortable Resp Effort & Inspection: normal respiratory effort Auscultation: clear to auscultation bilaterally Percussion: percussion normal Cardio Palpation: normal PMI Rate: regular rate Rhythm: regular rhythm Heart sounds: no murmurs and no rubs Peripheral pulses: Peripheral pulses 2+ throughout GI Inspection: Yes normal to inspection Palpation (GI): Soft to palpation, nontender, no guarding, not rigid and No hepatosplenomegaly present Percussion: Yes normal to percussion Auscultation: normal bowel sounds Rectal Exam - Female: deferred Assessment & Plan Assessment & Plan (1) Dysplasia of cervix, low grade (MADHAV 1): Comment: Persistent since 03/29 Code(s): N87.0 - Mild cervical dysplasia Plan: Discussed with the patient the pathology results of the colposcopy biopsies & endocervical curettage ( mild dysplasia-MADHAV 1). Discussed with the patient the sensitivity specificity, positive and negative predictive value in detecting cervical cancer in addition discussed the regression, persistence and progression rates. Since the MADHAV 1 lesions are persistent for the last 2 years options of treatment were discussed with the patient included the following continued observation versus excisional procedures. All the pros, cons, risks and benefits of each approach were discussed with the patient, the patient decided to proceed with loop electric excision procedure. All questions answered the patient verbalized understanding. (2) Abnormal uterine bleeding (AUB): Comment: Endometrial polyp on EMB pathology Code(s): N93.9 - Abnormal uterine and vaginal bleeding, unspecified Plan: Discussed with the patient the results the pathology showing possible endometrial polyp, recommended hysteroscopy D&C, possible polypectomy/myomectomy. Discussed with the patient the procedure , all benefits and risks including but not limited to inability to complete the procedure , insufficient endometrial tissue for a complete evaluation of the endometrial cavity , bleeding, infecti on, possible need for blood transfusion with all its risk ( HIV,syphilis, Hepatitis, anaphylaxis shock, others..), injury to bladder, rectum, possible need for laparoscopy/laparotomy or hysterectomy. The patient verbalized understanding and signed the consent. Instructions given the patient to schedule a 2 week postoperative appointment Coding Level of Care Code Est Pt Level 3 (90024) Diagnoses Dysplasia of cervix, low grade (MADHAV 1) N87.0 Abnormal uterine bleeding (AUB) N93.9
[2023-09-23 13:33] VITALS: BP 118/70; BMI 38.6
== END 2023-09-23 13:50 | disposition home or self-care (01) ==
LOC: HO.HWS 13:05
PROVIDERS: PCP Registered Nurse; Visit Provider Obstetrics & Gynecology
DX: N87.0 Mild cervical dysplasia (principal); N93.9 Abnormal uterine and vaginal bleeding, unspecified
CPT/HCPCS: 99213

== ENCOUNTER → 2023-09-23 13:05 | Outpatient (BNVA) | payer MEDICAID, SELFPAY | PROVIDERS: PCP Registered Nurse; Visit Provider Obstetrics & Gynecology | DX: N87.0 Mild cervical dysplasia (principal); N93.9 Abnormal uterine and vaginal bleeding, unspecified | CPT/HCPCS: 99212 ==

== ENCOUNTER 2023-10-03 08:15 | Day surgery (SDC) | payer MEDICAID, SELFPAY ==
[2023-09-30 15:47] VITALS: BMI 38.6
--- NOTE | 2023-10-01 13:50 | HO.ANESPROP2 ---
Documented by User: Priya London NP 10/01/23 13:51 HPI - Anesthesia Eval Consult details Narrative: 53yo F for D&C Hysteroscopy,possible myomectomy,possible polypectomy, LEEP,poss loop electric excision,poss loop electrical,cone and post endocervical curettage PMFSH Active Problems Active Problems: All Active Problems ASCUS with positive high risk HPV cervical (Acute) Bacterial vaginosis (Acute) Microscopic hematuria (Acute) Urine incontinence (Acute) Abnormal uterine bleeding (AUB) (Acute) Well woman exam (Acute) Dysplasia of cervix, low grade (MADHAV 1) (Acute) Menorrhagia with regular cycle (Acute) LGSIL of cervix of undetermined significance (Acute) Past Medical History Medical History ASCUS with positive high risk HPV cervical Sjogren syndrome with central nervous system involvement Hypothyroidism PTSD (post-traumatic stress disorder) Schizoaffective disorder Surgical History Surgical History Hx of eye surgery Hx of straightening of nasal septum Social History Social History Patient Tobacco Use Status: Never used Tobacco Use of substances other than those prescribed or required for medical reasons: No Substance Use Type: Marijuana Are you DNR?: No Advance Directives: No Advance Directives Information Provided: Yes Meds Allergies Allergy/AdvReac Type Severity Reaction Status Date / Time Sulfa (Sulfonamide Allergy Unknown UNKNOWN Verified 10/03/23 08:44 Antibiotics) [SULFA (SULFONAMIDE ANTIBIOTICS)] Home Medications ?Medication ?Instructions ?Recorded ?Confirmed ?Last Taken ?Type oxcarbazepine 300 mg tablet 300 mg PO BEDTIME 03/14/21 Unknown History (Trileptal) levothyroxine 75 mcg tablet 75 mcg PO DAILY 07/21/23 Unknown History (Levoxyl) linaclotide 72 mcg capsule 145 mcg PO DAILY 07/21/23 Unknown History (Linzess) olanzapine 10 mg tablet (Zyprexa) 10 mg PO BEDTIME 07/21/23 Unknown History oxcarbazepine 150 mg tablet 150 mg PO DAILY 07/21/23 Unknown History (Trileptal) pilocarpine HCl 5 mg tablet 10 mg PO TID 07/21/23 Unknown History propranolol 40 mg tablet 40 mg PO BID 07/21/23 Unknown History fluticasone propionate 50 spray intranasal 09/09/23 Unknown History mcg/actuation nasal spray,suspension cyclosporine 0.05 % eye drops in a drp ophthalmic (eye) 10/03/23 Unknown History dropperette duloxetine 30 mg capsule,delayed 30 mg PO BEDTIME 10/03/23 10/03/23 Unknown History release (Cymbalta) famotidine 40 mg tablet 40 mg PO BID 10/03/23 10/03/23 Unknown History meloxicam 7.5 mg tablet 7.5 mg PO DAILY PRN Pain 10/03/23 10/03/23 Unknown History Exam Height,Weight and Vital Signs: Height 5 ft 4 in Weight 101.999 kg Assessment and Plan Assessment Anesthesia Assessment: Chart Reviewed Documented by User: Rufina Magdaleno MD 10/03/23 09:33 HPI - Anesthesia Eval Consult details Narrative: 53yo F WITH SJOGRENS Bass&C Hysteroscopy,possible myomectomy,possible polypectomy, LEEP,poss loop electric excision,poss loop electrical,cone and post endocervical curettage PMFSH Past Medical History Medical History ASCUS with positive high risk HPV cervical Sjogren syndrome with central nervous system involvement Hypothyroidism PTSD (post-traumatic stress disorder) Schizoaffective disorder Family History Family history of problems with anesthesia: No Surgical History Surgical History Hx of eye surgery Hx of straightening of nasal septum History of Problems with Anesthesia: No Social History Social History Patient Tobacco Use Status: Never used Tobacco Use of substances other than those prescribed or required for medical reasons: No Substance Use Type: Marijuana Are you DNR?: No Advance Directives: No Advance Directives Information Provided: Yes Meds Allergies Allergy/AdvReac Type Severity Reaction Status Date / Time Sulfa (Sulfonamide Allergy Unknown UNKNOWN Verified 10/03/23 08:44 Antibiotics) [SULFA (SULFONAMIDE ANTIBIOTICS)] Home Medications ?Medication ?Instructions ?Recorded ?Confirmed ?Last Taken ?Type oxcarbazepine 300 mg tablet 300 mg PO BEDTIME 03/14/21 Unknown History (Trileptal) levothyroxine 75 mcg tablet 75 mcg PO DAILY 07/21/23 Unknown History (Levoxyl) linaclotide 72 mcg capsule 145 mcg PO DAILY 07/21/23 Unknown History (Linzess) olanzapine 10 mg tablet (Zyprexa) 10 mg PO BEDTIME 07/21/23 Unknown History oxcarbazepine 150 mg tablet 150 mg PO DAILY 07/21/23 Unknown History (Trileptal) pilocarpine HCl 5 mg tablet 10 mg PO TID 07/21/23 Unknown History propranolol 40 mg tablet 40 mg PO BID 07/21/23 Unknown History fluticasone propionate 50 spray intranasal 09/09/23 Unknown History mcg/actuation nasal spray,suspension cyclosporine 0.05 % eye drops in a drp ophthalmic (eye) 10/03/23 Unknown History dropperette duloxetine 30 mg capsule,delayed 30 mg PO BEDTIME 10/03/23 10/03/23 Unknown History release (Cymbalta) famotidine 40 mg tablet 40 mg PO BID 10/03/23 10/03/23 Unknown History meloxicam 7.5 mg tablet 7.5 mg PO DAILY PRN Pain 10/03/23 10/03/23 Unknown History Exam Airway Mallampati Class: II TM Dist: >3cm Neck ROM: Limited Loose/Missing/Broken Teeth: Yes and Upper Heart: rrr Lungs: cta Assessment and Plan Assessment Anesthesia Assessment: Anesthesia Plan Discussed Final Anesthetic Review Family History of Problems with Anesthesia: No History of Problems with Anesthesia: No NPO: Yes ASA Class: III (per her report has sjogrens) Final Preanesthetic Review: No Changes in Pt Med Stat, Meds/Allgs Chart Reviewed, Consent Obtained/Reviewed and Anes Risks/Benef Reviewed Patient Risk: Intermediate Procedure Risk: Low Anesthetic Plan Anesthetic Plan: GA Disposition: Standard PACU
[2023-10-03 08:55] VITALS: BMI 38.8
[2023-10-03 09:02] VITALS: BP 122/71; PULSE 63; RESP 15; TEMP 36.7; O2SAT 97
--- NOTE | 2023-10-03 09:03 | MHC.SHP ---
Pre-Procedural Eval Section A - 24 Hr Update-Section A only Date of Service: 10/03/23 The patient is an INPATIENT: No Changes since office visit: No Cold of Flu in the past 2 weeks, No New Medical Problems, No Changes in Medication and No Patient answered all questions The patient has been examined within 24 hours of the surgical procedure. The History & Physical has been completed within 30 days and I have reviewed it.: Yes Section B - Complete if H&P > 30 days Chief Complaint: Mild cervical dysplasia Allergies: Allergies Allergy/AdvReac Type Severity Reaction Status Date / Time Sulfa (Sulfonamide Allergy Unknown UNKNOWN Verified 10/03/23 08:44 Antibiotics) [SULFA (SULFONAMIDE ANTIBIOTICS)] Plan Diagnosis/Plan: Unchanged I have reviewed the history and physical and performed a pertinent physical examination on my patient. No changes have occurred unless specified. Time Spent With Patient Time: Total time managing care of this patient today ____ minutes.
[2023-10-03] MEDS: Lactated Ringers 1,000 ML 100 ML IVCONT (09:14)
[2023-10-03 09:36] LABS: UPreg QC Valid YES; Urine Pregnancy NEGATIVE (NEGATIVE)
--- NOTE | 2023-10-03 11:15 | P.BOP_ITS ---
Brief Operative Note Date of Service: 10/03/23 Pre-op diagnosis: Persistent MADHAV 1 with positive ECC Abnormal uterine bleeding with endometrial polyp on EMB pathology Post-op diagnosis: same (Endometrial polyp) Procedure: Hysteroscopy, polypectomy and D&C LEEP CONE with post CONE ECC Surgeon: Tre King MD Anesthesia: GLMA and other (Paracervical block) Was an Delivery Motorcycle Driver used for this Procedure?: No Estimated blood loss (mL): 0 Pathology: other (Endometrial scrapings, endometrial polyp, Cervical cone, top- hat, Post cone ECC) Condition: stable Disposition: other (Home)
--- NOTE | 2023-10-03 11:16 | W.PM.OPN ---
Operative Note Operative Note Date of Service: 10/03/23 Narrative: Preop Diagnosis: Persistent MADHAV 1 with positive ECC, abnormal uterine bleeding with Endometrial polyp on EMB pathology Operation: Diagnostic Hysteroscopy, Dilataion & Curettage and polypectomy, LEEP cone , top-hat excision with post cone ECC Post Op Diagnosis: Same and Endometrial Polyp QBL: Minimal Anesthesia: GLMA, paracervical block Surgeon: Tre King MD Flying Ii Instructor: None Complication: None Pathology: Endometrial Scrapings, Endometrial polyp, Cervical cone, top-hat endo cervical excision, endo cervical curettage Procedure: The patient was put in the dorsal lithotomy position, scrubbed, and draped in the usual manner. A sterile speculum was inserted in the patient's vagina. The anterior lip of the cervix was grasped with a single tooth tenaculum. The cervix was dilated up to 5 mm, then the scope was inserted in the patient's uterus. Inspection revealed endometrial polyp. The Myosure Reach device was used; it was introduced through the operative channel and polypectomy done with no complications. The scope was then taken out from the uterine cavity, sharp curettings was carried on with minimal to moderate amount of tissues retrieved. The single-tooth tenaculum was removed and anterior lip of the cervix, hemostasis was assured using pressure The cervix was then assessed using the colposcope with acetic acid , the lesions were seen, and at least 1 cm of the squamocolumnar junction was observed. 20 x 5 mm size loop was selected based upon the diameter of the lesion. Lugol solution was used to outline the lesions and area of the transformation zone order to be removed 10 cc of xylocaine with epinephrine were injected submucosally into the surface of the cervix (ectocervix) at the 3, 6, 9, and 12 o'clock positions. The electrosurgical generator is set at 40 figueroa on blend 1. The loop is carefully passed simultaneously around and under the transformation zone, in order to ensure excising it making sure the lesion is at least 5 mm far from the specimen margins . The loop was allowed to glide through the cervix from one side to the other, allowing the cutting current to divide the tissue. Since ECC was positive the endo cervical disease could be beyond the reach of the loop, additional tissue was excised from this area with a smaller-diameter loop , endo cervical top-hat excision was performed An endo cervical curettage is performed following completion of excision, and hemostasis is obtained with a Ball electrode or regular tip cautery. At the end, Monsel's solution was applied to the cone bed At the end of the procedure, all instruments were taken out of the patient vaginal cavity. The single tooth tenaculum was removed and homeostasis was assured using pressure,. The patient tolerated the procedure well and was transferred to the PACU in a stable condition.
[2023-10-03 11:20] VITALS: BP 118/76; PULSE 65; RESP 16; TEMP 36.1; O2SAT 94
[2023-10-03 11:35] VITALS: BP 125/68; PULSE 68; RESP 16; O2SAT 96
[2023-10-03 11:50] VITALS: BP 126/58; PULSE 64; RESP 16; TEMP 36.2; O2SAT 97
== END 2023-10-03 12:40 | disposition home or self-care (01) ==
PROVIDERS: PCP Registered Nurse; Visit Provider Obstetrics & Gynecology
PROC: 0UDB8ZZ Extraction of Endometrium, Via Natural or Artificial Opening Endoscopic (ICD-10-PCS; CPT 58558; principal; 2023-10-03 10:30)
PROC: 0UBC7ZZ Excision of Cervix, Via Natural or Artificial Opening (ICD-10-PCS; CPT 57522; 2023-10-03 10:30)
DX: N87.0 Mild cervical dysplasia (principal); N84.0 Polyp of corpus uteri; R87.810 Cervical high risk human papillomavirus (HPV) DNA test positive; M35.00 Sjogren syndrome, unspecified; E03.9 Hypothyroidism, unspecified; F25.9 Schizoaffective disorder, unspecified; F43.10 Post-traumatic stress disorder, unspecified; Z88.2 Allergy status to sulfonamides; Z79.899 Other long term (current) drug therapy
CPT/HCPCS: 58558; 57461; 81025; 88305; 88307; J0131; J1885; J2250; J2405; J2704; J3010

== ENCOUNTER → 2023-10-03 08:15 | Outpatient (BNV) | payer MEDICAID, SELFPAY | PROVIDERS: PCP Registered Nurse; Visit Provider Obstetrics & Gynecology | DX: N87.0 Mild cervical dysplasia (principal); N84.0 Polyp of corpus uteri | CPT/HCPCS: 57522; 58558 ==

== ENCOUNTER 2023-10-16 14:40 | Outpatient (AMB) | payer MEDICAID, SELFPAY ==
--- NOTE | 2023-10-16 14:46 | MHC.OFFVIS ---
Vital Signs 10/16/23 14:54 Height 5 ft Weight 224 lb BMI 43.7 BP 112/68 Intake Visit Reasons: post op Sugarcane Research Technician Required: No Information Interpreted: non-clinical & clinical Accompanied by: Employee Allergies Sulfa (Sulfonamide Antibiotics) [SULFA (SULFONAMIDE ANTIBIOTICS)] Allergy (Unknown, Verified 10/16/23 14:55) UNKNOWN HPI Comments Details: The patient is presenting post hysteroscopy D&C with LEEP cone with post cone ECC for persistent MADHAV 1 no complaints minimal vaginal bleeding no feverishness chills or abdominal pain. The pathology showed the following: A. Endometrial polyp, resection: -Fragments of benign endometrial polyp with secretory features; no atypia or carcinoma. B. Endometrium, curettage: -Benign dyssynchronous secretory endometrium with glandular and stromal breakdown, and benign polypoid endocervical glandular cyst; no atypia or carcinoma. C. Cervix, conization: -Low grade squamous intraepithelial lesion (mild, MADHAV I). -Endocervical glandular mucosa with inflammation present. -Biopsy site changes present. -Ectocervical margin: Free of dysplasia. -Endocervical margin: Focally positive for dysplasia. -Radial (deep stromal) margin: Free of dysplasia. D. Cervix, top-hat, conization: -Endocervical glandular mucosa with inflammation and biopsy site changes; negative for dysplasia E. Endocervix, post cone curettage: Endocervical glandular and squamous epithelium; negative for dysplasia The following workup for abnormal uterine bleeding was done: H&H 12.2/38.7 GC/CT were negative Co testing showed ascus/HPV positive, this was followed by colpo/biopsy/ECC which showed MADHAV 1 since 2020, the patient underwent LEEP cone with post cone ECC pathology showing above Mammogram done in 08/30 the BI-RADS 1 Pelvic ultrasound showed the following: The uterus measures 7.7 x 2.9 x 3.6 cm. No discrete fibroids appreciated. Endometrial thickness is 5 mm. Echogenic foci characteristic of calcifications and nabothian cysts in the cervix. Similar findings demonstrated on the prior exam. No significant free fluid. Right ovary measures 2.3 x 1.6 x 1.1 cm, volume 2.1 mL and is unremarkable. Left ovary measures 1.9 x 1.5 x 1.3 cm, volume of 1.9 mL and is unremarkable. [facility] Medical History ASCUS with positive high risk HPV cervical Sjogren syndrome with central nervous system involvement Hypothyroidism PTSD (post-traumatic stress disorder) Schizoaffective disorder Surgical History Hx of eye surgery Hx of straightening of nasal septum Social History Patient Tobacco Use Status: Never used Tobacco Substance Use Type: Marijuana Female Reproductive History Menstrual Age of Menarche: 16 Review of Systems Const All systems reviewed & are unremarkable except as noted in HPI and below Reports as per HPI and Reports no additional complaints GI Reports no additional complaints Reports no additional complaints Physical Exam Vital Signs: Last Vital Signs BP 112/68 10/16/23 14:54 BMI result Body Mass Index 43.7 Assessment & Plan Assessment & Plan (1) Dysplasia of cervix, low grade (MADHAV 1): Comment: Persistent since 03/29 status post LEEP cone with post cone ECC positive endocervical margin but negative top-hat excision and post cone ECC Code(s): N87.0 - Mild cervical dysplasia Category: Medical Plan: Discussed with the patient the results the pathology with positive endocervical margins focally but negative post have excision and post cone ECC, recommended co testing in 1 year. Instructions given the patient to schedule a 1 year appointment for co testing. All questions answered, the patient verbalized understanding (2) Abnormal uterine bleeding (AUB): Comment: Endometrial polyp on EMB pathology status post hysteroscopic polypectomy/D&C Code(s): N93.9 - Abnormal uterine and vaginal bleeding, unspecified Category: Medical Plan: Discussed with the patient the results of the intraoperative findings, the pathology results and the work up done and options of treatment including Lysteda, control pills, Mirena IUD, endometrial ablation and hysterectomy. All pros, cons, risks and benefits if each option was discussed with the patient and the patient decided to go ahead with Mirena IUD so a more detailed discussion about it was conducted including mechanism of action, risks (uterine perforation, infection, injury to bladder, bowel, displacement, and others) benefits (hypo menorrhea, amenorrhea, ...). GC/CT were taken and were negative and the patient was instructed to schedule Mirena IUD insertion on day 1-5 of next cycle . All questions answered, the patient verbalized understanding Coding Level of Care Code Est Pt Level 3 (98609) Diagnoses Dysplasia of cervix, low grade (MADHAV 1) N87.0 Abnormal uterine bleeding (AUB) N93.9
[2023-10-16 14:54] VITALS: BP 112/68; BMI 43.7
== END 2023-10-16 15:08 | disposition home or self-care (01) ==
PROVIDERS: PCP Registered Nurse; Referring Provider Registered Nurse; Visit Provider Obstetrics & Gynecology
DX: N87.0 Mild cervical dysplasia (principal); N93.9 Abnormal uterine and vaginal bleeding, unspecified
CPT/HCPCS: 99024

== ENCOUNTER → 2023-10-16 14:40 | Outpatient (BNVA) | payer MEDICAID, SELFPAY | PROVIDERS: PCP Registered Nurse; Visit Provider Obstetrics & Gynecology | DX: N87.0 Mild cervical dysplasia (principal); N93.9 Abnormal uterine and vaginal bleeding, unspecified | CPT/HCPCS: 99212 ==

== ENCOUNTER 2023-12-24 13:07 | Outpatient (REF) | payer MEDICAID, SELFPAY ==
[2023-12-24 15:56] LABS: MANUAL DIFF FLAG NO
[2023-12-24 16:05] LABS: Basophils Percent Auto 0.6 % (0-2); Eosinophils Percent Auto 0.1 % (0-4); Hemoglobin 11.7 g/dl (12.0-16.0); Imm Gran Abs Auto 0.02 X10*3/uL (0.00-0.03); Imm Gran Pct Auto 0.3 % (0.0-0.4); Lymphocytes Absolute Auto 1.8 X10*3/uL (1.2-4.9); Lymphocytes Percent Auto 26.7 % (20-40); Mean Corpuscular HGB Conc 31.6 g/dl (31.0-35.0); Mean Corpuscular Volume 85.3 fL (80.0-98.0); Mean Platelet Volume 11.2 fL (9.4-12.3); Monocytes Absolute Auto 0.7 X10*3/uL (0.1-1.2); Monocytes Percent Auto 9.9 % (2-11); Neutrophils Absolute Auto 4.2 x10*3/uL (2.0-8.3); Neutrophils Percent Auto 62.4 % (45-73); Platelet Count 275 X10*3/uL (160-400); Red Blood Count 4.34 X10*6/uL (4.20-5.50); Red Cell Distribution Width 14.3 % (11.0-16.0); White Blood Count 6.7 X10*3/uL (4.8-10.8)
[2023-12-24 16:16] LABS: Estimated Average Glucose 114 mg/dL; Hemoglobin A1c % 5.6 % (<6.0)
[2023-12-24 16:27] LABS: Alanine Aminotransferase 11 U/L (0-31); Albumin Level 4.5 g/dL (3.5-5.0); Alkaline Phosphatase 120 U/L (39-117); Anion Gap 15 (12-20); Aspartate Amino Transferase 17 U/L (5-31); Bilirubin Total 0.5 mg/dL (0.0-1.0); Blood Urea Nitrogen 19 mg/dL (9-16); Calcium 9.9 mg/dL (8.4-10.2); Carbon Dioxide 23 mmol/L (22-29); Chloride 106 mmol/L (96-108); Cholesterol 219 mg/dL (<200); Estimated Glomerular Filt Rate 47; Glucose Random 111 mg/dL (60-115); HDL Cholesterol 55 mg/dL (>40); LDL Cholesterol Calculated 135 mg/dL (<100); Potassium 3.8 mmol/L (3.3-5.1); Sodium 140 mmol/L (135-145); Total Protein 7.6 g/dL (6.5-8.0); Triglycerides 146 mg/dL (<150)
[2023-12-24 16:36] LABS: HIV AB/AG Nonreactive (Nonreactive); HIV Num 1 0.05 S/CO (0.00-0.99)
[2023-12-24 16:46] LABS: TSH reflex Free T4 0.78 uIU/mL (0.32-4.0)
[2023-12-24 17:53] LABS: Bacterial Vaginosis PCR NEGATIVE (Negative); Candida Group PCR DETECTED (Not Detect); Candida glab krusei PCR NOT DETECTED (Not Detect); Trichomonas vaginalis PCR NOT DETECTED (Not Detect)
[2023-12-26 08:39] LABS: RPR Rapid Plasma Reagin NON-REACTIVE (NON-REACTIVE)
[2023-12-26 14:14] LABS: HCV Log PCR <1.18 NOT DETECTED Log IU/mL (NOT DETECTED); HepC Viral Load <15 NOT DETECTED IU/mL (NOT DETECTED)
== END 2023-12-24 13:08 | disposition home or self-care (01) ==
LOC: HO.HHCL 13:07
PROVIDERS: Visit Provider Registered Nurse
DX: Z00.00 Encounter for general adult medical examination without abnormal findings (principal); N89.8 Other specified noninflammatory disorders of vagina; N39.3 Stress incontinence (female) (male)
CPT/HCPCS: 0352U; 80053; 80061; 83036; 84443; 85025; 86592; 87086; 87389; 87522

== ENCOUNTER 2024-01-26 15:20 | Outpatient (REF) | payer MEDICAID, SELFPAY ==
[2024-01-27 02:39] LABS: CT PCR NOT DETECTED (Not Detect.); NG PCR NOT DETECTED (Not Detect.)
[2024-01-27 12:14] LABS: Bacterial Vaginosis PCR NEGATIVE (Negative); Candida Group PCR DETECTED (Not Detect); Candida glab krusei PCR NOT DETECTED (Not Detect); Trichomonas vaginalis PCR NOT DETECTED (Not Detect)
== END 2024-01-26 15:21 | disposition home or self-care (01) ==
LOC: HO.CHCLNP 15:20
PROVIDERS: Visit Provider Registered Nurse
DX: N94.9 Unspecified condition associated with female genital organs and menstrual cycle (principal)
CPT/HCPCS: 0352U; 87491; 87591

== ENCOUNTER 2024-02-23 10:42 | Outpatient (REF) | payer MEDICAID, SELFPAY ==
[2024-02-23 12:00] LABS: Hematocrit 37.6 % (37.0-47.0); Hemoglobin 12.1 g/dl (12.0-16.0); Mean Corpuscular HGB Conc 32.2 g/dl (31.0-35.0); Mean Corpuscular Hemoglobin 26.9 pg (27.0-33.0); Mean Corpuscular Volume 83.6 fL (80.0-98.0); Mean Platelet Volume 10.6 fL (9.4-12.3); Platelet Count 293 X10*3/uL (160-400); Red Cell Distribution Width 14.3 % (11.0-16.0); White Blood Count 5.7 X10*3/uL (4.8-10.8)
[2024-02-23 13:16] LABS: Syphilis Screen Nonreactive (Nonreactive)
[2024-02-23 13:17] LABS: HBsAGNum1 0.46 S/CO (0.00-0.99); HIV AB/AG Nonreactive (Nonreactive); HIV Num 1 0.04 S/CO (0.00-0.99); Hepatitis B Surface Antigen Negative (Negative); ~HepC Num1 0.06 S/CO (0.00-0.79); ~Hepatitis C Antibody Nonreactive (Nonreactive)
[2024-02-23 13:45] LABS: HCG Quantitative < 2 mIU/mL; TSH reflex Free T4 1.05 uIU/mL (0.32-4.0)
[2024-02-24 09:03] LABS: Follicle Stimulating Hormone 44.4 mIU/mL; Lutenizing Hormone 28.6 mIU/mL; Prolactin 11.8 ng/mL
== END 2024-02-23 10:43 | disposition home or self-care (01) ==
LOC: HO.LAB 10:42
PROVIDERS: PCP Registered Nurse; Visit Provider Obstetrics & Gynecology
DX: N76.0 Acute vaginitis (principal); B96.89 Other specified bacterial agents as the cause of diseases classified elsewhere; N93.9 Abnormal uterine and vaginal bleeding, unspecified; N91.2 Amenorrhea, unspecified
CPT/HCPCS: 36415; 83001; 83002; 84146; 84443; 84702; 85027; 86780; 86803; 87340; 87389

== ENCOUNTER 2024-02-23 17:46 | Outpatient (REF) | payer MEDICAID, SELFPAY ==
[2024-02-24 04:49] LABS: CT PCR NOT DETECTED (Not Detect.); NG PCR NOT DETECTED (Not Detect.)
[2024-02-24 11:00] LABS: Bacterial Vaginosis PCR NEGATIVE (Negative); Candida Group PCR DETECTED (Not Detect); Candida glab krusei PCR NOT DETECTED (Not Detect); Trichomonas vaginalis PCR NOT DETECTED (Not Detect)
== END 2024-02-23 17:47 | disposition home or self-care (01) ==
LOC: HO.HHCLNP 17:46
PROVIDERS: Visit Provider Internal Medicine
DX: N76.1 Subacute and chronic vaginitis (principal)
CPT/HCPCS: 0352U; 87491; 87591

== ENCOUNTER 2024-03-01 09:09 | Outpatient (REF) | payer MEDICAID, SELFPAY ==
[2024-03-01 11:31] LABS: MANUAL DIFF FLAG NO
[2024-03-01 11:35] LABS: Basophils Absolute Auto 0.1 X10*3/uL (0.0-0.2); Basophils Percent Auto 0.9 % (0-2); Hematocrit 38.6 % (37.0-47.0); Hemoglobin 12.5 g/dl (12.0-16.0); Imm Gran Abs Auto 0.03 X10*3/uL (0.00-0.03); Imm Gran Pct Auto 0.5 % (0.0-0.4); Lymphocytes Absolute Auto 1.6 X10*3/uL (1.2-4.9); Lymphocytes Percent Auto 24.5 % (20-40); Mean Corpuscular HGB Conc 32.4 g/dl (31.0-35.0); Mean Corpuscular Hemoglobin 27.5 pg (27.0-33.0); Mean Platelet Volume 11.3 fL (9.4-12.3); Monocytes Absolute Auto 0.5 X10*3/uL (0.1-1.2); Monocytes Percent Auto 8.1 % (2-11); Neutrophils Absolute Auto 4.3 x10*3/uL (2.0-8.3); Platelet Count 268 X10*3/uL (160-400); Red Blood Count 4.54 X10*6/uL (4.20-5.50); Red Cell Distribution Width 14.4 % (11.0-16.0); White Blood Count 6.4 X10*3/uL (4.8-10.8)
[2024-03-01 11:44] LABS: Estimated Average Glucose 117 mg/dL; Hemoglobin A1c % 5.7 % (<6.0)
[2024-03-01 11:56] LABS: Alanine Aminotransferase 13 U/L (0-31); Albumin Level 4.4 g/dL (3.5-5.0); Alkaline Phosphatase 128 U/L (39-117); Anion Gap 10 (12-20); Aspartate Amino Transferase 16 U/L (5-31); Bilirubin Total 0.5 mg/dL (0.0-1.0); Blood Urea Nitrogen 15 mg/dL (9-16); Calcium 9.6 mg/dL (8.4-10.2); Carbon Dioxide 28 mmol/L (22-29); Chloride 107 mmol/L (96-108); Cholesterol 215 mg/dL (<200); Estimated Glomerular Filt Rate 50; Glucose Random 137 mg/dL (60-115); HDL Cholesterol 50 mg/dL (>40); LDL Cholesterol Calculated 138 mg/dL (<100); Potassium 3.8 mmol/L (3.3-5.1); Sodium 141 mmol/L (135-145); Total Protein 7.6 g/dL (6.5-8.0); Triglycerides 135 mg/dL (<150)
== END 2024-03-01 09:10 | disposition home or self-care (01) ==
LOC: HO.HHCL 09:09
PROVIDERS: Visit Provider Registered Nurse Psychiatric/Mental Health
DX: R32 Unspecified urinary incontinence (principal); N76.0 Acute vaginitis; Z78.0 Asymptomatic menopausal state; Z13.89 Encounter for screening for other disorder
CPT/HCPCS: 36415; 80053; 80061; 81002; 83036; 85025; 99212

== ENCOUNTER 2024-03-01 13:40 | Outpatient (AMB) | payer MEDICAID, SELFPAY ==
--- NOTE | 2024-03-01 13:52 | A.OFFVIS_ITS ---
Vital Signs 03/01/24 13:54 Height 5 ft Weight 222 lb 10.67 oz BMI 43.5 Intake Visit Reasons: Labs results Scientific Publications Editor Required: No Information Interpreted: non-clinical & clinical Part Time Flexible Clerk: Part Time Flexible Clerk Present (Malorie WHITE) Accompanied by: Employee Allergies Sulfa (Sulfonamide Antibiotics) [SULFA (SULFONAMIDE ANTIBIOTICS)] Allergy (Unknown, Verified 03/01/24 13:54) UNKNOWN Post menopausal: Yes HPI Comments Details: The patient is presenting for follow-up. Has been amenorrheic over the last 4 months Hysteroscopy D&C with LEEP cone with post cone ECC for persistent MADHAV 1 no complaints minimal vaginal bleeding no feverishness chills or abdominal pain. The pathology showed the following: A. Endometrial polyp, resection: -Fragments of benign endometrial polyp with secretory features; no atypia or carcinoma. B. Endometrium, curettage: -Benign dyssynchronous secretory endometrium with glandular and stromal breakdown, and benign polypoid endocervical glandular cyst; no atypia or carcinoma. C. Cervix, conization: -Low grade squamous intraepithelial lesion (mild, MADHAV I). -Endocervical glandular mucosa with inflammation present. -Biopsy site changes present. -Ectocervical margin: Free of dysplasia. -Endocervical margin: Focally positive for dysplasia. -Radial (deep stromal) margin: Free of dysplasia. D. Cervix, top-hat, conization: -Endocervical glandular mucosa with inflammation and biopsy site changes; negative for dysplasia E. Endocervix, post cone curettage: Endocervical glandular and squamous epithelium; negative for dysplasia The following workup for abnormal uterine bleeding was done: H&H 12.2/38.7 GC/CT were negative FSH/LH = 44.4/28.6 Co testing showed ascus/HPV positive, this was followed by colpo/biopsy/ECC which showed MADHAV 1 since 2020, the patient underwent LEEP cone with post cone ECC pathology showing above Mammogram done in 08/30 the BI-RADS 1 Pelvic ultrasound showed the following: The uterus measures 7.7 x 2.9 x 3.6 cm. No discrete fibroids appreciated. Endometrial thickness is 5 mm. Echogenic foci characteristic of calcifications and nabothian cysts in the cervix. Similar findings demonstrated on the prior exam. No significant free fluid. Right ovary measures 2.3 x 1.6 x 1.1 cm, volume 2.1 mL and is unremarkable. Left ovary measures 1.9 x 1.5 x 1.3 cm, volume of 1.9 mL and is unremarkable. The patient is complaining of vulvovaginal irritation and itching was prescribed Diflucan and clotrimazole cream still having irritation, last BV panel was positive for christiano. In addition, the patient is complaining of urine incontinence during intercourse no other urinary symptoms The patient was counseled about options of treatment few months ago, and decided to proceed with Mirena IUD but since then has been amenorrheic since then, she called back was prescribed Provera 10 mg p.o. q.d. for 5 days, she had a negative progesterone withdrawal test. [facility] Medical History ASCUS with positive high risk HPV cervical Sjogren syndrome with central nervous system involvement Hypothyroidism PTSD (post-traumatic stress disorder) Schizoaffective disorder Surgical History Hx of eye surgery Hx of straightening of nasal septum Social History Patient Tobacco Use Status: Never used Tobacco Substance Use Type: Marijuana Female Reproductive History Menstrual Age of Menarche: 16 Review of Systems Const All systems reviewed & are unremarkable except as noted in HPI and below Physical Exam Vital Signs: BMI result Body Mass Index 43.5 General: Yes no CVA tenderness External Female Exam: normal external appearance and normal appearance of the urethra Speculum Exam - Vagina: normal appearance of the vagina, normal palpation, no lesions and no masses Speculum Exam - Cervix: normal appearance of the cervix, normal palpation, no lesions, no masses and nontender Bimanual exam- vagina & uterus: normal bimanual exam, normal palpation, uterine size normal, normal palpation, uterine shape normal, No Cervical tenderness present and non-tender Bimanual Exam- Adnexa, other: normal adnexae Back/Spine/Pelvis Back: no CVA tenderness Results AMB Urinalysis Dipstick UR Leukocytes Negative Last Edit by Malorie Adkins CMA on 03/01/24 14:28 UR Nitrite Negative Last Edit by Malorie Adkins CMA on 03/01/24 14:28 UR Urobilinogen Normal Last Edit by Malorie Adkins CMA on 03/01/24 14:28 UR Protein Negative Last Edit by Malorie Adkins CMA on 03/01/24 14:28 UR Ph 6.5 Last Edit by Malorie Adkins, GUERRERO on 03/01/24 14:28 UR Blood Negative Last Edit by Malorie Adkins, GUERRERO on 03/01/24 14:28 UR Specific [place] 1.005 Last Edit by Malorie Adkins CMA on 03/01/24 14:28 UR Ketone Negative Last Edit by Malorie Adkins, GUERRERO on 03/01/24 14:28 UR Bilirubin Negative Last Edit by Malorie Adkins, GUERRERO on 03/01/24 14:28 UR Glucose Negative Last Edit by Malorie Adkins CMA on 03/01/24 14:28 Assessment & Plan Assessment & Plan (1) Urine incontinence: Code(s): R32 - Unspecified urinary incontinence Category: Medical Plan: Urine dip was negative Will refer to Urology for further management (2) Menopause: Code(s): Z78.0 - Asymptomatic menopausal state Category: Medical Plan: Discussed with the patient elevated FSH/LH and a negative progesterone withdrawal test pointing towards the diagnosis of menopause. Instructions given the patient to call in case of recurrence of her vaginal bleeding. All questions answered, the patient verbalized understanding (3) Vulvovaginitis: Code(s): N76.0 - Acute vaginitis Category: Medical Plan: Since the patient is on antifungal, will treat with Lotrisone cream b.i.d. for 5 days. Instructions given the patient to call in case symptoms not improve Orders: Orders AMB Urinalysis Dipstick Today R32 - Unspecified urinary incontinence Referrals Urology Referral R32 - Unspecified urinary incontinence Medications: New clotrimazole-betamethasone 1-0.05 % 1 appl topical BID 5 days 45 grams 0RF Coding Level of Care Code Est Pt Level 3 (32953) Diagnoses Urine incontinence R32 Menopause Z78.0 Vulvovaginitis N76.0
[2024-03-01 13:54] VITALS: BMI 43.5
== END 2024-03-01 14:55 | disposition home or self-care (01) ==
LOC: HO.HWS 13:40
PROVIDERS: PCP Registered Nurse; Visit Provider Obstetrics & Gynecology
DX: R32 Unspecified urinary incontinence (principal); Z78.0 Asymptomatic menopausal state; N76.0 Acute vaginitis
CPT/HCPCS: 99213

== ENCOUNTER 2024-03-29 10:46 | Outpatient (AMB) | payer MEDICAID, SELFPAY ==
[2024-03-29 10:57] VITALS: BMI 43.5
--- NOTE | 2024-03-29 10:57 | A.OFFVIS_ITS ---
Vital Signs 03/29/24 10:57 Height 5 ft Weight 222 lb 10.67 oz BMI 43.5 Intake Visit Reasons: vaginal discharge Licensed Mortician Required: No Information Interpreted: non-clinical & clinical Dependency Counselor: Dependency Counselor Present (Malorie WHITE) Accompanied by: Self / Same As Patient Allergies Sulfa (Sulfonamide Antibiotics) [SULFA (SULFONAMIDE ANTIBIOTICS)] Allergy (Unknown, Verified 03/29/24 10:58) UNKNOWN Post menopausal: Yes HPI Comments Details: Presenting complaining of vulvovaginal irritation and itching and discharge associated with foul odor. The patient was treated by her primary care physi bernice with multiple dose of fluconazole p.o. and clotrimazole vaginal cream for the last month . [facility] Medical History ASCUS with positive high risk HPV cervical Sjogren syndrome with central nervous system involvement Hypothyroidism PTSD (post-traumatic stress disorder) Schizoaffective disorder Surgical History Hx of eye surgery Hx of straightening of nasal septum Social History Patient Tobacco Use Status: Never used Tobacco Substance Use Type: Marijuana Female Reproductive History Menstrual Age of Menarche: 16 Review of Systems Const All systems reviewed & are unremarkable except as noted in HPI and below Physical Exam Vital Signs: BMI result Body Mass Index 43.5 General: Yes no CVA tenderness External Female Exam: normal external appearance and normal appearance of the urethra Speculum Exam - Vagina: normal appearance of the vagina, normal palpation, no lesions and no masses Speculum Exam - Cervix: normal appearance of the cervix, normal palpation, no lesions, no masses and nontender Bimanual exam- vagina & uterus: normal bimanual exam, normal palpation, uterine size normal, normal palpation, uterine shape normal, No Cervical tenderness present and non-tender Bimanual Exam- Adnexa, other: normal adnexae Back/Spine/Pelvis Back: no CVA tenderness Assessment & Plan Assessment & Plan (1) Vulvovaginitis: Code(s): N76.0 - Acute vaginitis Category: Medical Plan: GC/CT with BV panel taken. The patient would like to wait for the results before starting any antibiotics since she has been taking multiple antibody for the last months. Will check the results and treat accordingly. All questions answered, the patient verbalized understanding . Coding Level of Care Code Est Pt Level 3 (09045) Diagnoses Vulvovaginitis N76.0
== END 2024-03-29 11:39 | disposition home or self-care (01) ==
LOC: HO.HWS 10:47
PROVIDERS: PCP Registered Nurse; Visit Provider Obstetrics & Gynecology
DX: N76.0 Acute vaginitis (principal)
CPT/HCPCS: 99213

== ENCOUNTER 2024-03-29 10:46 | Outpatient (REF) | payer MEDICAID, SELFPAY ==
[2024-03-30 08:52] LABS: Bacterial Vaginosis PCR NEGATIVE (Negative); Candida Group PCR NOT DETECTED (Not Detect); Candida glab krusei PCR NOT DETECTED (Not Detect); Trichomonas vaginalis PCR NOT DETECTED (Not Detect)
[2024-03-30 09:05] LABS: CT PCR NOT DETECTED (Not Detect.); NG PCR NOT DETECTED (Not Detect.)
== END 2024-03-29 10:47 | disposition home or self-care (01) ==
LOC: HO.LNP 10:46
PROVIDERS: PCP Registered Nurse; Visit Provider Obstetrics & Gynecology
DX: N76.0 Acute vaginitis (principal); B96.89 Other specified bacterial agents as the cause of diseases classified elsewhere
CPT/HCPCS: 0352U; 87491; 87591; 99212

== ENCOUNTER 2025-02-08 08:20 | Outpatient (AMB) | payer MEDICAID, SELFPAY ==
--- NOTE | 2025-02-08 08:22 | A.OFFVIS_ITS ---
Intake Visit Reasons: yeast infection ? Intake Note: pt c/o white discharge, burning, frequency, odor Precision Jig Grinder: Precision Jig Grinder Present (Kyung) Allergies Sulfa (Sulfonamide Antibiotics) (SULFA (SULFONAMIDE ANTIBIOTICS)) Allergy (Unknown, Verified 02/08/25 08:22) UNKNOWN HPI Comments Details: Presenting for annual exam complaining of vulvovaginal discharge , itching and vaginal odor. Last co testing in 08/02 was ascus/HPV positive, colpo biopsy ECC was MADHAV 1, the patient had LEEP cone with post cone ECC , pathology showed MADHAV 1 Last mammogram was in 08/30 was BI-RADS 1 No previous screening colonoscopy PFSH Medical History ASCUS with positive high risk HPV cervical Sjogren syndrome with central nervous system involvement Hypothyroidism PTSD (post-traumatic stress disorder) Schizoaffective disorder Surgical History Hx of eye surgery Hx of straightening of nasal septum Social History Patient Tobacco Use Status: Never used Tobacco Substance Use Type: Marijuana Female Reproductive History Menstrual Age of Menarche: 16 Review of Systems Const All systems reviewed & are unremarkable except as noted in HPI and below Card Reports as per HPI Resp Reports as per HPI GI Reports as per HPI and Reports no additional complaints Reports as per HPI Physical Exam Const General: cooperative, healthy appearing and comfortable Chest Chest palpation & inspection: normal inspection of the chest and normal palpation of entire chest wall Breast/axilla inspection: normal inspection of the breasts and normal inspection of the axillae Breast/axilla palpation: normal palpation of the breasts, normal palpation of the axillae and no axillary lymphadenopathy Resp Effort & Inspection: normal respiratory effort Auscultation: clear to auscultation bilaterally Percussion: percussion normal Cardio Palpation: normal PMI Rate: regular rate Rhythm: regular rhythm Heart sounds: no murmurs and no rubs Peripheral pulses: Peripheral pulses 2+ throughout GI Inspection: Yes normal to inspection Palpation (GI): Soft to palpation, nontender, no guarding, not rigid and No hepatosplenomegaly present Percussion: Yes normal to percussion Auscultation: normal bowel sounds Rectal Exam - Female: deferred General: Yes bladder normal to palpation External Female Exam: No lesion Speculum Exam - Vagina: normal appearance of the vagina, normal palpation, normal vaginal discharge and not erythematous Speculum Exam - Cervix: normal appearance of the cervix and normal palpation Bimanual exam- vagina & uterus: normal bimanual exam, normal palpation, uterine size normal, bladder normal to palpation, consistency normal and normal palpation Bimanual Exam- Adnexa, other: normal adnexae, no masses and no tenderness Results AMB Urinalysis, Automated UA Leukoctes 0 Valarie/uL Last Edit by Cindy Rocha Ronald on 02/08/25 08:35 UA Nitrite Negative Last Edit by Cindy Rocha [facility] on 02/08/25 08:35 UA Urobilinogen 0 mg/dL Last Edit by Cindy Rocha [facility] on 02/08/25 08:3 5 UA Protein 0 mg/dL Last Edit by Cindy Rocha [facility] on 02/08/25 08:35 UA pH 6.0 Last Edit by Cindy Rocha [facility] on 02/08/25 08:35 UA Blood 0 Ernie/uL Last Edit by Cindy Rocha [facility] on 02/08/25 08:35 UA Specific [place] 1.015 Last Edit by Cindy Rocha [facility] on 02/08/25 08:35 UA Ketone Negative Last Edit by Cindy Rocha [facility] on 02/08/25 08:35 UA Bilirubin 0 mg/dL Last Edit by Cindy Rocha [facility] on 02/08/25 08:35 UA Glucose 0 mg/dL Last Edit by Cindy Rocha [facility] on 02/08/25 08:35 Assessment & Plan Assessment & Plan (1) Well woman exam: Comment: MADHAV 1 in 2023 status post LEEP cone for persistent MADHAV I Code(s): Z01.419 - Encounter for gynecological examination (general) (routine) without abnormal findings Category: Medical Plan: Cotesting done. Mammogram ordered. GI referral placed for screening colonoscopy Counseled the patient about the recommended dietary allowance of 1000 mg of Calcium & 600 IU of vitamin D. The patient was instructed to perform monthly self-breast exams and to schedule an annual exam in a year; All questions answered and the patient verbalized understanding. Instructed the patient to schedule annual exam in a year (2) Vulvovaginitis: Comment: Mixed Code(s): N76.0 - Acute vaginitis Category: Medical Plan: GC/CT, Bacterial Vaginosis panel taken, Terazol 0.8% q.h.s. for 3 days, in addition to metronidazole 500 mg p.o. b.i.d. for 7 days was sent to the patient's pharmacy. The patient was instructed to call if symptoms don't improve in 48 hours. Orders: Orders MM tomosynthesis screening BI Today Z12.31 - Encounter for screening mammogram for malignant neoplasm of breast AMB Urinalysis Automated Today R35.0 - Frequency of micturition Referrals Gastroenterology Referral Z12.11 - Encounter for screening for malignant neoplasm of colon Medications: New terconazole 0.8% 1 appful vaginal BEDTIME 20 grams 0RF 3 days metronidazole 500 mg PO BID 14 tabs 0RF 7 days Coding Level of Care Code Est Pt Prev Care 40-64y(56228) Diagnoses Well woman exam Z01.419 Vulvovaginitis N76.0
--- OUTSIDE RECORDS SUMMARY | 2025-02-08 08:55 | XMS_ITS | Encounter Summary ---
Author Organization [employer] Address [address] [place] [address] 7 [place] [address] Care Team Providers Care Magnet Maker Name Role Phone Mitzi Duffy Primary Care Provider [phone] Tre King MD Unavailable Karla Cazares NP Primary Care Provider [phone] Reason for Visit * Reason Onset Date Comments Med Refill 11/09/2024 Encounter Details Date Type Department Care Team ([facility] st Contact Info) Description 11/09/2024 Telephone [facility] MED & PEDS [address] [place], [place] [phone] Mitzi Duffy FNP [address] [place] [address] Med Refill Social History Tobacco Use Types Packs/Day Years Used Date Smoking Tobacco: Never Passive Smoke Exposure: Never Smokeless Tobacco: Never Alcohol Use Standard Drinks/Week Comments Never 0 (1 standard drink = 0.6 oz pur e alcohol) Alcohol Answer Date Recorded Frequency of Alcohol Consumption Not on file 12/24/2023 Average Number of Drinks Not on file 024 Frequency of Binge Drinking Not on file 12/07 Score 0 12/24/2023 Depression Answer Date Recorded Patient Health Questionnaire-9 Score 0 12/24/2023 Patient Health Questionnaire-9 Score 0 12/24/2023 Last PHQ-9: Questionnaire Data Not on file 0 12/24/2023 Housing Stability Answer Date Recorded What is your housing situation today? I do not have housing (Staying with others, in a hotel, in a retirement, living outside on the street, on a beach, in a car, or in a park 04/29/[address] you li ve. Do you have problems with any of the following? None of the above 04/29/2024 Food Insecurity Answer Date Recorded Within the past 12 months, y ou worried that your food would run out before you got money to buy more: Never True 04/29/2024 Within the past 12 months,th e food you bought just didn't last and you didn't have enough money to get more: Never True Transportation Answer Date Recorded In the past 12 months, has l ack of transportation kept you from medical appts, meetings, work or from getting things needed for daily living? No 09/05/2023 Utilities Answer Date Recorded In the past 12 months, has t he electric, gas, oil or water company threatened to shut off services in your home? No 09/05/2023 Depression Answer Date Recorded Patient Health Questionnaire-2 Score 0 12/24/2023 Internet Access Answer Date Recorded Internet Access Q1 Yes 04/29/2024 Internet Access Q2 Not on file 04/29/2024 Comments Unknown Sex and Gender Information Value Date Recorded Sex Assigned at Female 04/08/2022 10:20 AM EDT Legal Sex Female 10:20 AM EDT Gender Identity Female 04/08/2022 10:20 AM EDT Sexual Orientation Aromantic 03/21/2023 9: 52 AM EDT Sexual Orientation Don't know 03/21/2023 9: 52 AM EDT documented as of this encounter Miscellaneous Notes * Telephone Encounter - Marian Jansen LPN - 11/09/2024 4:03 PM EDT Medication requested has refills patient can call and transfer to pharmacy. * Telephone Encounter - Evelia Wood - 11/09/2024 3:57 PM EDT TC from pt requesting medication refill. Medications needing refill : linaCLOtide (Linzess) 72 MCG capsule To be sent to: [facility]- - [place], [place] - [address] [place] P documented in this encounter Plan of Treatment Upcoming Encounters Date Type Department Care Team (Late st Contact Info) Description 02/21/2025 2:20 PM EDT Office Visit [facility] [address] [place] [phone] Karla Cazares NP [address] [place] [address] 03/16/2025 12:30 PM EDT Office Visit [facility] [address] [place] [phone] Kareen Gomes LLD [address] [place] [address] [phone] documented as of this encounter Visit Diagnoses Not on filedocumented in this encounter Additional Health Concerns Assessment Noted Time PHQ-9 Depression Total Score: 0 12/24/19 11:34 AM EDT documented as of this encounter Care Teams Magnet Maker Relationship Specialty Start Date End Date Mitzi Duffy FNP [address] [place] [address] PCP - General Family Medicine 02/05/22 11/15/24 Karla Cazares, JOANN [address] [place] [address] PCP - General Family Medicine 11/16/24 Tre King MD [address] [place] [address] Obstetrics and Gynecology 04/25/24 documented as of this encounter
--- OUTSIDE RECORDS SUMMARY | 2025-02-08 08:55 | XMS_ITS | Encounter Summary ---
Author Organization [employer] Address [address] [place] [address] 7 [place] [address] Care Team Providers Care Streaming Media Specialist Name Role Phone Tre King MD Unavailable Karla Cazares NP Primary Care Provider [phone] Encounter Details Date Type Department Care Team ([facility] Contact Info) Description 12/28/2024 Telephone [facility] [address] [place] [address] Karla Cazares NP [address] [place] [address] Social History Tobacco Use Types Packs/Day Years Used Date Smoking Tobacco: Never Passive Smoke Exposure: Never Smokeless Tobacco: Never Alcohol Use Standard Drinks/Week Comments Never 0 (1 standard drink = 0.6 oz pur e alcohol) Alcohol Answer Date Recorded How often do you have a drink containing alcohol ? 0 12/20/2024 How many drinks containing a lcohol do you have on a typical day when you are drinking? 0 12/20/2024 How often do you have six or more drinks on one occasion? 0 12/20/2024 Depression Answer Date Recorded Patient Health Questionnaire-9 Score 15 12/13/2024 Patient Health Questionnaire-9 Score 15 12/13/2024 Last PHQ-9: Questionnaire Data Not on file 0 12/13/2024 Housing Stability Answer Date Recorded What is your housing situation today? I do not have housing (Staying with others, in a hotel, in a care home, living outside on the street, on a [...] Answer Date Recorded Patient Health Questionnaire-2 Score 1 12/28/2024 Internet Access Answer Date Recorded Internet Access [...] AM EDT documented as of this encounter Functional Status * Over the past 2 weeks, how often have you been bothered by any of the following problems? Question Answer Date of Assessment Author Little interest or pleasure in doing things Several days 12/28/2024 1:30 PM EDT Zandra Emery Feeling down, depressed, or hopeless Not at all 12/28/2024 1:30 PM EDT Zandra Emery Patient Health Questionnaire -2 Score 1 12/28/2024 1:30 PM EDT Zandra Emery * If you checked off any problems on this questionnaire so far, Question Answer Date of Assessment Author How difficult have these problems made it for you to do your work, take care of things at home, or get along with other people? Not difficult at all 12/28/2024 1:30 PM EDT Zandra Emery documented as of this encounter Miscellaneous Notes * Telephone Encounter - Dia Barajas - 12/28/2024 12:50 PM EDT Faxed last office note over to the [facility] with [facility]. . * Telephone Encounter - Yeni Hernandez - 12/28/2024 10:09 AM EDT Patient is requesting after office notes from physical are done today please send them to the [facility] in [facility] documented in this encounter Plan of Treatment Upcoming Encounters Date Type Department Care Team (Late st Contact Info) Description 02/21/2025 2:20 PM EDT Office Visit [facility] [address] [place] [phone] Karla Cazares NP [address] [place] [address] 03/16/2025 12:30 PM EDT Office Visit [facility] [address] [place] [phone] Kareen Gomes LLD [address] [place] [address] documented as of this encounter Visit Diagnoses Not on filedocumented in this encounter Additional Health Concerns Assessment Noted Time PHQ-9 Depression Total Score: 15 025 3:36 PM EDT documented as of this encounter Care Teams Streaming Media Specialist Relationship Specialty Start Date End Date Karla Cazares NP [address] [place] [address] PCP - General Family Medicine 11/16/24 Tre King MD [address] [place] [address] [place] [address] Obstetrics and Gynecology 04/25/24 documented as of this encounter
--- OUTSIDE RECORDS SUMMARY | 2025-02-08 08:55 | XMS_ITS | Encounter Summary ---
Author Organization [employer] Address [address] [place] [address] 7t [place] [address] Care Team Providers Care It Application Architect Name Role Phone Mitzi Dufyf Primary Care Provider [phone] Tre King MD Unavailable Karla Cazares NP Primary Care Provider [phone] Reason for Visit * Reason Onset Date Comments Letter for Medication 02/12/2023 Encounter Details Date Type Department Care Team (Late st Contact Info) Description 02/12/2023 Telephone [facility] [address] [place] [address] Mitzi Duffy FNP [address] [place] [address] Letter for Medication Social History Tobacco Use Types Packs/Day Years Used Date Smoking Tobacco: Never Passive Smoke Exposure: Never Smokeless Tobacco: Never Alcohol Use Standard Drinks/Week Comments Never 0 (1 standard drink = 0.6 oz pur e alcohol) Depression Answer Date Recorded Patient Health Questionnaire-9 Score 0 06/04/2022 Depression Answer Date Recorded Patient Health Questionnaire-2 Score 0 06/04/2022 Comments Unknown Sex and Gender Information Value Date Recorded Sex Assigned at Female 04/08/2022 10:20 AM EDT Legal Sex Female 10:20 AM EDT Gender Identity Female 04/08/2022 10:20 AM EDT Sexual Orientation Aromantic 03/21/2023 9: 52 AM EDT Sexual Orientation Don't know 03/21/2023 9: 52 AM EDT documented as of this encounter Miscellaneous Notes * Telephone Encounter - Jeanette Brandt RN - 02/12/2023 4:25 PM EDT T/C to [phone] for below message, No answer. Not able to LVM. * Telephone Encounter - Sierra Reynoso - 02/12/2023 4:00 PM EDT Tc from lakshmi nurse from day program requesting a verbal order until PCP signs and fax back order. Please contact kay at [phone] * Telephone Encounter - Jeanette Brandt RN - 02/12/2023 3:40 PM EDT T/C to [phone] for below message, Nurse was informed that generally this type of documents goes to medical records and then they brings to provider. Nurse states she already spoke with medical records and they tole her it might take 7-10 days, but pt. Had eye surgery and Nurse is looking for [facility]. Sound Art Instructor RN called to medical records, spoke with milagro at medical records. As per Milagro, medical records does not received order yet. Milagro advised to bring this order to [facility] once they received so RN can get sign from provider and can fax back. Milagro verbally agreed and understood. * Telephone Encounter - Kerry Ding - 02/12/2023 2:46 PM EDT Tc from Kay nurse from day program requesting status on a dr order they faxed over that they needwith 24 hr . Please call to clarify [phone]. * Telephone Encounter - Joseph Kimbrough - 02/12/2023 1:47 PM EDT Tc from pt requesting a letter from provider in regards to medication for dextran 70-hypromellose (artificial tears) 0.1-0.3 % ophthalmic solution. Pt states that letter needs to provide of how medication needs to be administer and dosage as well. Pt stated that [facility] ( [facility] ) that they have sent a request over. Please contact pt at [phone] documented in this encounter Plan of Treatment Upcoming Encounters Date Type Department Care Team (Late st Contact Info) Description 02/21/2025 2:20 PM EDT Office Visit [facility] [address] [place] [phone] Karla Cazares NP [address] [place] [address] 03/16/2025 12:30 PM EDT Office Visit [facility] [address] [place] [phone] Kareen Gomes LLD [address] [place] [address] documented as of this encounter Visit Diagnoses Not on filedocumented in this encounter Additional Health Concerns Assessment Noted Time PHQ-9 Depression Total Score: 0 06/04/20 22 3:05 PM EST documented as of this encounter Care Teams It Application Architect Relationship Specialty Start Date End Date Mitzi Duffy FNP [address] [place] [address] PCP - General Family Medicine 02/05/22 11/15/24 Karla Cazares NP [address] [place] [address] PCP - General Family Medicine 11/16/24 Tre King MD [address] [place] [address] Obstetrics and Gynecology 04/25/24 documented as of this encounter
--- OUTSIDE RECORDS SUMMARY | 2025-02-08 08:56 | XMS_ITS | Encounter Summary ---
Author Organization [employer] Address [address] [place] [address] 7 [place] [address] Care Team Providers Care Microsoft Bi Consultant Name Role Phone Tre King MD Unavailable Karla Cazares NP Primary Care Provider [phone] Encounter Details Date Type Department Care Team ([facility] Contact Info) Description 02/01/[address] [facility] [address] [place] [phone] Karla Cazares NP [address] [place] [address] Social History Tobacco Use Types Packs/Day Years [...] What is your housing situation today? I have abhijit martínez 01/06/[address] you li ve. Do you have problems with any of the following? None of the above 01/06/2025 Food Insecurity Answer Date Recorded Within the [...] things needed for daily living? No 09/05/2023 Intimate Partner Violence Answer Date R ecorded Within the last year, have y ou been afraid of your partner or ex-partner? 2 01/06/2025 Within the last year, have y ou been humiliated or emotionally abused in other ways by your partner or ex-partner? 2 Within the last year, have y ou been kicked, hit, slapped, or otherwise physically hurt by your partner or ex-partner? 2 01/06/2025 Within the last year, have y ou been raped or forced to have any kind of sexual activity by your partner or ex-partner? 2 01/06/2025 Utilities Answer Date Recorded In the past [...] encounter Miscellaneous Notes * Telephone Encounter - Suri Golden LPN - 02/01/2025 11:13 AM EDT Spoke to pt, discussed referral, pt states she has appt with LP on 02/08, will discuss then, also will take to long to get into [facility] so she will go back to her old [employer] in [place] if needed. * Telephone Encounter - Rebecca Tapia LPN - 02/01/2025 10:42 AM EDT Spoke with Pt, states she is not getting better. States she has had multiple abx for UTI, yeast andBV. Pt states she is still having sx. Pt states she is having a lot pain in her vagina. She also states she has started bleeding since her pap, states she is changing a pad 3 times a day. States blood is bright red and dark. Pt states she feels it is a normal period with cramping. States she is in menopause, last period was a year ago. Has hx of cervical cancer. Pt currently in respite for a few days. Scheduled visit with LP at [facility] as she has been seeing her regarding this. * Telephone Encounter - Lila Sol - 02/01/2025 9:54 AM EDT Patient is having reacurring UTI s and thinks she needs to see someone also having period for 1st time in a year at 54 years old [phone] documented in this encounter Plan of Treatment Upcoming Encounters Date Type Department Care Team ([facility] Contact Info) Description 02/21/2025 2:20 PM EDT Office Visit [facility] [address] [place] [phone] Karla Cazares NP [address] [place] [address] 03/16/2025 12:30 PM EDT Office Visit [facility] [address] [place] [phone] Kareen Gomes LLD [address] [place] [address] documented as of this encounter Visit Diagnoses Not on filedocumented in this encounter Additional Health Concerns Assessment Noted Time PHQ-9 Depression Total Score: 15 025 3:36 PM EDT documented as of this encounter Care Teams Microsoft Bi Consultant Relationship Specialty Start Date End Date Karla Cazares NP [address] [place] [address] PCP - General Family Medicine 11/16/24 Tre King MD [address] [place] [address] Obstetrics and Gynecology 04/25/24 documented as of this encounter
--- OUTSIDE RECORDS SUMMARY | 2025-02-08 08:56 | XMS_ITS | Encounter Summary ---
Author Organization [employer] Address [address] [place] [address] 7 [place] [address] Care Team Providers Care Municipal Services Manager Name Role Phone Tre King MD Unavailable Karla Cazares NP Primary Care Provider Reason for Visit * Reason Comments Med Refill Encounter Details Date Type Department Care Team ([facility] st Contact Info) Description 12/30/2024 Refill [facility] & PEDS [address] [place] [address] Mitzi Duffy FNP [address] [place] [address] Sjogren's syndrome, with unspecified organ involvement (CMS/HCC) Social History Tobacco Use Types Packs/Day Years [...] with others, in a hotel, in a half-way, living outside on the street, on a [...] AM EDT documented as of this encounter Plan of Treatment Upcoming Encounters Date Type Department Care Team (Late st Contact Info) Description 02/21/2025 2:20 PM EDT Office Visit [facility] [address] [place] [phone] Karla Cazares NP [address] [place] [address] 03/16/2025 12:30 PM EDT Office Visit [facility] [address] [place] [phone] Kareen Gomes LLD [address] [place], [place] documented as of this encounter Visit Diagnoses Diagnosis Sjogren's syndrome, with unspecified organ involvement (CMS/HCC) documented in this encounter Additional Health Concerns Assessment Noted Time PHQ-9 Depression Total Score: 15 025 3:36 PM EDT documented as of this encounter Care Teams Municipal Services Manager Relationship Specialty Start Date End Date Karla Cazares NP [address] [place] [address] PCP - General Family Medicine 11/16/24 Tre King MD [address] [place] [address] Obstetrics and Gynecology 04/25/24 documented as of this encounter
--- OUTSIDE RECORDS SUMMARY | 2025-02-08 08:56 | XMS_ITS | Encounter Summary ---
Author Organization [employer] Address [address] 7t [place] [address] Care Team Providers Care Exploration Engineer Name Role Phone Mitzi Duffy Primary Care Provider [phone] Tre King MD Unavailable Karla Cazares NP Primary Care Provider [phone] Reason for Visit * Reason Comments Med Refill Encounter Details Date Type Department Care Team ([facility] st Contact Info) Description 04/01/2024 Refill [facility] [address] [place], [place] [phone] Mitzi Duffy FNP [address] [place], [place] [phone] Rhinitis, unspecified type; Sjogren's syndrome, with unspecified organ involvement (CMS/HCC) [...] housing situation today? I have abhijit martínez 09/05/[address] you li ve. Do you have problems with any of the following? None of the above 09/05/2023 Food Insecurity Answer Date Recorded Within the past 12 months, y ou worried that your food would run out before you got money to buy more: Often true 09/05/2023 Within the past 12 months,th e food you bought just didn't last and you didn't have enough money to get more: Often true Transportation Answer Date Recorded In the past [...] Recorded Patient Health Questionnaire-2 Score 0 12/24/2023 Comments Unknown Sex and Gender Information Value [...] Description 02/21/2025 2:20 PM EDT Office Visit [facility] [address] [place] [phone] Karla Cazares NP [address] [place] [address] 03/16/2025 12:30 PM EDT Office Visit [facility] [address] [place] [phone] Kareen Gomes LLD [address] [place] [address] documented as of this encounter Visit Diagnoses Diagnosis Rhinitis, unspecified type Sjogren's syndrome, with unspecified organ involvement (CMS/HCC) documented in this encounter Additional Health Concerns Assessment Noted Time PHQ-9 Depression Total Score: 0 12/24/19 11:34 AM EDT documented as of this encounter Care Teams Exploration Engineer Relationship Specialty Start Date End Date Mitzi Duffy FNP [address] [place] [address] PCP - General Family Medicine 02/05/22 11/15/24 Karla Cazares NP [address] [place] [address] PCP - General Family Medicine 11/16/24 Tre King MD [address] [place] [address] Obstetrics and Gynecology 04/25/24 documented as of this encounter
--- OUTSIDE RECORDS SUMMARY | 2025-02-08 08:56 | XMS_ITS | Encounter Summary ---
Author Organization [employer] Address [address] [facility] 7t [place] [address] Care Team Providers Care Impregnator Electrolytic Capacitors Name Role Phone Mitzi Duffy Primary Care Provider Tre King MD Unavailable Karla Cazares NP Primary Care Provider [phone] Reason for Visit * Reason Comments Med Refill Encounter Details Date Type Department Care Team ([facility] st Contact Info) Description 04/07/2024 Refill [facility] [address] [place], [place] [phone] Mitzi Duffy FNP [address] [place], [place] [phone] Rhinitis, unspecified type Social History Tobacco Use Types Packs/Day Years [...] Description 02/21/2025 2:20 PM EDT Office Visit [facility] [address] [place] [phone] Karla Cazares NP [address] [place] [address] 03/16/2025 12:30 PM EDT Office Visit [facility] [address] [place] [phone] Kareen Gomes LLD [address] [place] [address] documented as of this encounter Visit Diagnoses Diagnosis Rhinitis, unspecified type documented in this encounter Additional Health Concerns Assessment Noted Time PHQ-9 Depression Total Score: 0 12/24/19 24 11:34 AM EDT documented as of this encounter Care Teams Impregnator Electrolytic Capacitors Relationship Specialty Start Date End Date Mitzi Duffy FNP [address] [place] [address] PCP - General Family Medicine 02/05/22 11/15/24 Karla Cazares NP [address] [place] [address] PCP - General Family Medicine 11/16/24 Tre King MD [address] [place] [address] [place] [address] Obstetrics and Gynecology 04/25/24 documented as of this encounter
--- OUTSIDE RECORDS SUMMARY | 2025-02-08 08:56 | XMS_ITS | Encounter Summary ---
Author Organization [facility] Address [address] [place] [address] Phone Care Team Providers Care Accounting Coordinator Name Role Phone Unavailable Primary Care Provider Unavailabl e Encounter Details Date Type Department Care Team (Late st Contact Info) Description 01/20/2025 Documentation Only [facility], [address] [place] [address] Debra Rhodes [address] [place] [phone] Social History Tobacco Use Types Packs/Day Years Used Date Smoking Tobacco: Never Assessed Comments Unknown Sex and Gender Information Value Date Recorded Sex Assigned at Not on file Legal Sex Female 4:11 PM EDT Gender Identity Not on file Sexual Orientation Not on file documented as of this encounter Plan of Treatment Upcoming Encounters Date Type Department Care Team (Late st Contact Info) Description 02/08/2025 3:30 PM EDT Office Visit [facility] [address] [place] [phone] Ibeth Huntley, [address] [place] [phone] documented as of this encounter Visit Diagnoses Not on filedocumented in this encounter
--- OUTSIDE RECORDS SUMMARY | 2025-02-08 08:56 | XMS_ITS | Encounter Summary ---
Author Organization [employer] Address 75 [facility] 7 [place] [address] Care Team Providers Care Neurological Surgeon Name Role Phone Mitzi Duffy Primary Care Provider [phone] Tre King MD Unavailable Karla Cazares NP Primary Care Provider [phone] Encounter Details Date Type Department Care Team (Late st Contact Info) Description 06/29/2024 Telephone [facility] [address] [place] [address] Mitzi Duffy FNP [address] [place] [address] Social History Tobacco Use Types Packs/Day Years [...] with others, in a hotel, in a usp, living outside on the street, on a [...] Description 02/21/2025 2:20 PM EDT Office Visit [facility] [address] [place] [phone] Karla Cazares NP [address] [place] [address] 03/16/2025 12:30 PM EDT Office Visit [facility] 102 [place] [phone] Kareen Gomes LLD 102 [place] [address] documented as of this encounter Visit Diagnoses Not on filedocumented in this encounter Additional Health Concerns Assessment Noted Time PHQ-9 Depression Total Score: 0 12/24/19 24 11:34 AM EDT documented as of this encounter Care Teams Neurological Surgeon Relationship Specialty Start Date End Date Mitzi Duffy FNP [address] [place] [address] PCP - General Family Medicine 02/05/22 11/15/24 Karla Cazares NP [address] [place] [address] PCP - General Family Medicine 11/16/24 Tre King MD [address] [place] [address] Obstetrics and Gynecology 04/25/24 documented as of this encounter
--- OUTSIDE RECORDS SUMMARY | 2025-02-08 08:56 | XMS_ITS | Encounter Summary ---
Author Organization [employer] Address [address] [place] [address] 7 [place] [address] Care Team Providers Care Medical Housekeeper Name Role Phone Tre King MD Unavailable Karla Cazares NP Primary Care Provider [phone] Encounter Details Date Type Department Care Team ([facility] Contact Info) Description 02/04/2025 Telephone [facility] [address] [place] [address] Karla Cazares NP 102 [place] [address] Social History Tobacco Use Types Packs/Day Years [...] encounter Miscellaneous Notes * Telephone Encounter - Michelle Lambert - 02/04/2025 10:22 AM EDT Pt. Called and asked for an updated medication list be sent to the [facility] at [address] . Call back # [phone] documented in this encounter Plan of Treatment Upcoming Encounters Date Type Department Care Team (Late st Contact Info) Description 02/21/2025 2:20 PM EDT [facility] [address] [place] [phone] Karla Cazares NP [address] [place] [address] 03/16/2025 12:30 PM EDT [facility] [address] [place] [phone] Kareen Gomes LLD [address] [place], [place] [phone] documented as of this encounter Visit Diagnoses Not on filedocumented in this encounter Additional Health Concerns Assessment Noted Time PHQ-9 Depression Total Score: 15 025 3:36 PM EDT documented as of this encounter Care Teams Medical Housekeeper Relationship Specialty Start Date End Date Karla Cazares NP [address] [place] [address] PCP - General Family Medicine 11/16/24 Tre King MD [address] [place] [address] [place] [address] Obstetrics and Gynecology 04/25/24 documented as of this encounter
--- OUTSIDE RECORDS SUMMARY | 2025-02-08 08:56 | XMS_ITS | Encounter Summary ---
Author Organization [employer] Address [address] [place] [address] 7 [place] [address] Care Team Providers Care Oil And Gas Principal Name Role Phone Tre King MD Unavailable Karla Cazares NP Primary Care Provider [phone] Encounter Details Date Type Department Care Team ([facility] Contact Info) Description 01/27/[address] [facility] [place] [place] [address] [place] [address] Karla Cazares NP 102 [place] [address] Social History Tobacco Use Types Packs/Day Years [...] * Telephone Encounter - Michelle Lambert - 01/27/2025 12:21 PM EDT Pt. Called states she had a UTI and was given 5 different Antibiotics and now she's having white discharge, itching , burning and painful Pt. Believes they have bad yeast infection. Pt. Has an appointment tomorrow for a PAP Pt. Was told to keep the appointment and if Nursing feels she should come in before that they will reach out to her. Call back # [phone] documented in this encounter Plan of Treatment Upcoming Encounters Date Type Department Care Team (Late st Contact Info) Description 02/21/2025 2:20 PM EDT Office [facility] [address] [place] [phone] Karla Cazares NP [address] [place] [address] 03/16/2025 12:30 PM EDT Office Visit [facility] [address] [place] [phone] Kareen Gomes LLD [address] [place] [address] [phone] documented as of this encounter Visit Diagnoses Not on filedocumented in this encounter Additional Health Concerns Assessment Noted Time PHQ-9 Depression Total Score: 15 025 3:36 PM EDT documented as of this encounter Care Teams Oil And Gas Principal Relationship Specialty Start Date End Date Karla Cazares NP [address] [place] [address] PCP - General Family Medicine 11/16/24 Tre King MD [address] [place] [address] Obstetrics and Gynecology 04/25/24 documented as of this encounter
--- OUTSIDE RECORDS SUMMARY | 2025-02-08 08:56 | XMS_ITS | Encounter Summary ---
Author Organization [facility] Address [address] [place] [address] Phone Care Team Providers Care Lab Associate Name Role Phone Unavailable Primary Care Provider Unavailabl e Encounter Details Date Type Department Care Team (Late st Contact Info) Description 01/20/2025 Documentation Only [facility], [address] [place] [address] Debra Rhodes [address] [place] [address] Social History Tobacco Use Types [...] Visit [facility] [address] [place] [address] Ibeth Huntley, [address] [place] [address] documented as of this encounter Visit Diagnoses Not on filedocumented in this encounter
--- OUTSIDE RECORDS SUMMARY | 2025-02-08 08:56 | XMS_ITS | Encounter Summary ---
Author Organization [employer] Address [address] [facility] [address] 7t [place] [address] Care Team Providers Care Production Internship Name Role Phone Mitzi Duffy Primary Care Provider [phone] Tre King MD Unavailable Karla Cazares NP Primary Care Provider [phone] Reason for Visit * Reason Onset Date Comments FYI 05/14/2023 Encounter Details Date Type Department Care Team ([facility] st Contact Info) Description 05/14/2023 Telephone [facility] [address] [place] [address] Mitzi Duffy FNP [address] [place], [place] [phone] FYI Social History Tobacco Use Types Packs/Day Years Used Date Smoking Tobacco: Never Passive Smoke Exposure: Never Smokeless Tobacco: Never Alcohol Use Standard Drinks/Week Comments Never 0 (1 standard drink = 0.6 oz pur e alcohol) Depression Answer Date Recorded Patient Health Questionnaire-9 Score 0 06/04/2022 Housing Stability Answer Date Recorded What is your housing situation today? I have abhijitkishor martínez 03/25/[address] you li ve. Do you have problems with any of the following? None of the above 03/25/2023 Food Insecurity Answer Date Recorded Within the past 12 months, y ou worried that your food would run out before you got money to buy more: Never True 03/25/2023 Within the past 12 months,th e food you bought just didn't last and you didn't have enough money to get more: Never True Transportation Answer Date Recorded In the past 12 months, has l ack of transportation kept you from medical appts, meetings, work or from getting things needed for daily living? No 03/25/2023 Utilities Answer Date Recorded In the past 12 months, has t he electric, gas, oil or water company threatened to shut off services in your home? No 03/25/2023 Depression Answer Date Recorded Patient Health Questionnaire-2 [...] encounter Miscellaneous Notes * Telephone Encounter - Courtney Sandra RN - 05/16/2023 10:45 AM EST TC placed to patient to follow up on message from Rosaura below. Patient states that she has recentlybeen feeling dizzy whenever she lies down. She reports falling twice in the last week on rising from bed. She was uninjured. She believes this new episodic dizziness is related to Panamol, which she states was prescribed PRN by Dr. Arevalo in the [facility] for panic attacks. She states that when she doesn't take this medication, she feels fine. She will see Dr. Arevalo again on 05/20/23. Advised toshare these symptoms with this provider at this visit. Patient declines f/u visit with PCP at this time. States that she will call if she needs an appointment. TC [facility] to [facility] Reached Sathya, one of the other nurses. They have not noteddizziness or falls with this patient. They take BP readings once monthly and report the following readings for patient. They did not have dates for these readings, but Sathya states she believes the John reading is from 05/14/23. 99/May 128/April Routing to PCP so she is aware. * Telephone Encounter - ANNE-MARIE Gan - 05/15/2023 8:45 PM EST Reviewed. BP readings OK as long as pt not symptomatic (I.e. no dizziness, etc). Which particular medication is she concerned about, and has she followed up with the prescribing provider (psych)? * Telephone Encounter - Mikayla Mcneil - 05/14/2023 9:30 AM EST Tc from Rosaura, nurse at [facility], calling to inform pt blood presson today was 99/59and last month was 110/69. When Rosaura where taking pt blood pressure pt stated that is taking a phsyc med that may be lowering her blood pressure. Any questions contact Rosaura [phone] documented in this encounter Plan of Treatment Upcoming Encounters Date Type Department Care Team (Late st Contact Info) Description 02/21/2025 2:20 PM EDT Office Visit [facility] [address] [place] [phone] Karla Cazares NP 102 [place] [address] 03/16/2025 12:30 PM EDT Office Visit [facility] [address] [place] [phone] Kareen Gomes LLD [address] [place] [address] documented as of this encounter Visit Diagnoses Not on filedocumented in this encounter Additional Health Concerns Assessment Noted Time PHQ-9 Depression Total Score: 0 06/04/20 3:05 PM EST documented as of this encounter Care Teams Production Internship Relationship Specialty Start Date End Date Mitzi Duffy FNP [address] [place] [address] PCP - General Family Medicine 02/05/22 11/15/24 Karla Cazares NP [address] [place] [address] PCP - General Family Medicine 11/16/24 Tre King MD [address] [place] [address] Obstetrics and Gynecology 04/25/24 documented as of this encounter
--- OUTSIDE RECORDS SUMMARY | 2025-02-08 08:56 | XMS_ITS | Encounter Summary ---
Author Organization [employer] Address 75 [facility] 7t [place] [address] Care Team Providers Care Parts Sales Associate Name Role Phone Tre King MD Unavailable Karla Cazares NP Primary Care Provider [phone] Encounter Details Date Type Department Care Team ([facility] st Contact Info) Description 01/12/[address] [place] [address] Karla Cazares NP [address] [place] [address] Social History Tobacco Use Types Packs/Day Years [...] encounter Miscellaneous Notes * Telephone Encounter - Char Skyjanet - 01/12/2025 12:36 PM EDT Pt called mentioned her phone had been taken from her, but now has phone back! Returning call from Debra on 01/07. Please call back and advise. Call back [phone] documented in this encounter Plan of Treatment Upcoming Encounters Date Type Department Care Team (Late st Contact Info) Description 02/21/2025 2:20 PM EDT Office Visit [facility] [address] [place] [phone] Karla Cazares NP [address] [place] [address] 03/16/2025 12:30 PM EDT Office Visit [facility] [address] [place] [phone] Kareen Gomes LLD [address] [place] [address] [phone] documented as of this encounter Visit Diagnoses Not on filedocumented in this encounter Additional Health Concerns Assessment Noted Time PHQ-9 Depression Total Score: 15 025 3:36 PM EDT documented as of this encounter Care Teams Parts Sales Associate Relationship Specialty Start Date End Date Karla Cazares NP [address] [place] [address] PCP - General Family Medicine 11/16/24 Tre King MD [address] [place] [address] [place] [address] Obstetrics and Gynecology 04/25/24 documented as of this encounter
--- OUTSIDE RECORDS SUMMARY | 2025-02-08 08:56 | XMS_ITS | Encounter Summary ---
Author Organization [employer] Address [address] [facility] [address] 7t [place] [address] Care Team Providers Care Program Strategist Name Role Phone Mitzi Duffy Primary Care Provider [phone] Tre King MD Unavailable Karla Cazares NP Primary Care Provider [phone] Encounter Details Date Type Department Care Team ([facility] st Contact Info) Description 04/14/2024 Orders Only [facility] [address] [place] [address] Mitzi Duffy FNP 505 [place], [place] [phone] Polyarthralgia (Primary Dx) Social History Tobacco Use Types Packs/Day Years [...] Description 02/21/2025 2:20 PM EDT Office Visit [facility] [address] [place] [phone] Karla Cazares NP [address] [place] [address] 03/16/2025 12:30 PM EDT Office Visit [facility] D[facility] [address] [place] [phone] Kareen Gomes LLD [address] [place] [address] documented as of this encounter Visit Diagnoses Diagnosis Polyarthralgia- Primary Pain in joint, multiple sites documented in this encounter Additional Health Concerns Assessment Noted Time PHQ-9 Depression Total Score: 0 12/24/19 24 11:34 AM EDT documented as of this encounter Care Teams Program Strategist Relationship Specialty Start Date End Date Mitzi Duffy FNP 230 [place] [address] PCP - General Family Medicine 02/05/22 11/15/24 Karla Cazares NP [address] [place] [address] PCP - General Family Medicine 11/16/24 Tre King MD [address] [place] [address] [place] [address] Obstetrics and Gynecology 04/25/24 documented as of this encounter
--- OUTSIDE RECORDS SUMMARY | 2025-02-08 08:56 | XMS_ITS | Encounter Summary ---
Author Organization [employer] Address [address] [facility] [address] 7t [place] [address] Care Team Providers Care Presto Log Operator Name Role Phone Mitzi Duffy Primary Care Provider Tre King MD Unavailable Karla Cazares NP Primary Care Provider [phone] Reason for Visit * Reason Onset Date Comments Medication Question 03/04/2024 Encounter Details Date Type Department Care Team (Late st Contact Info) Description 03/04/2024 Telephone [facility] [address] [place] [address] Mitzi Duffy FNP [address] [place], [place] [phone] Medication Question Social History Tobacco Use Types Packs/Day Years [...] encounter Miscellaneous Notes * Telephone Encounter - Camilla Landis RN - 03/08/2024 3:43 PM EDT Medication does not show up in formulary. Patient would have to but OTC. * Telephone Encounter - Joseph Kimbrough - 03/05/2024 9:38 AM EDT Tc from pt returning Phone call and requesting status cone picker. * Telephone Encounter - Brett Lindo - 03/04/2024 11:02 AM EDT Tc from pt calling to request Refresh Optive no preservatives oil. Pt stated she was advised by specialist to contact pcp and request medication. If any questions please contact pt at [phone]. documented in this encounter Plan of Treatment Upcoming Encounters Date Type Department Care Team (Late st Contact Info) Description 02/21/2025 2:20 PM EDT Office Visit [facility] [address] [place] [address] [phone] Karla Cazares NP [address] [place] [address] [phone] 03/16/2025 12:30 PM EDT Office Visit [facility] [address] [place] [phone] Kareen Gomes LLD [address] [place] [address] [phone] documented as of this encounter Visit Diagnoses Not on filedocumented in this encounter Additional Health Concerns Assessment Noted Time PHQ-9 Depression Total Score: 0 12/24/19 11:34 AM EDT documented as of this encounter Care Teams Presto Log Operator Relationship Specialty Start Date End Date Mitzi Duffy FNP [address] [place] [address] PCP - General Family Medicine 02/05/22 11/15/24 Karla Cazares NP [address] [place] [address] PCP - General Family Medicine 11/16/24 Tre King MD [address] [place] [address] Obstetrics and Gynecology 04/25/24 documented as of this encounter
--- OUTSIDE RECORDS SUMMARY | 2025-02-08 08:56 | XMS_ITS | Encounter Summary ---
Author Organization [employer] Address 75 [facility] 7t [place] [address] Care Team Providers Care Supervisor Dry Cell Assembly Name Role Phone Tre King MD Unavailable Karla Cazares NP Primary Care Provider [phone] Encounter Details Date Type Department Care Team ([facility] st Contact Info) Description 01/12/[address] 200 [place] [address] Karla Cazares NP [address] [place] [address] Social History Tobacco Use Types Packs/Day Years [...] Telephone Encounter - Suri Golden LPN - 01/12/2025 3:37 PM EDT Pt called w/ c/o UTI buring, on urination, frequency, flank pain, no fever, no hematuria. Reported has been on antibiotics, but on research, pt has been on flagyll for BV. Pt reports kidney problems in past. Wants to be seen. Needs to wait for few days to schedule PT1. Does not meet nursing protocol. Protocol Used: Urinary Tract Infection on Antibiotic Follow-up Call - Female (Adult) Protocol-Based Disposition: See in Office Today Override (Final) Disposition: See in Office Within 3 Days Override Reason: Transportation not available Override Notes: needs PT1 scheduled appt for 2 days out Positive Triage Questions: * Taking antibiotic > 72 hours (3 days) for UTI and flank or lower back pain is SAME (unchanged,not better) * Patient wants to be seen * All higher-acuity triage questions were negative Care Advice Discussed: * Drink Extra Fluids * Reassurance and Education - Urinary Tract Infection * Drink Extra Fluids * Reasons To Call Back - You become worse. * Telephone Encounter - Suri Golden LPN - 01/12/2025 3:09 PM EDT Pt reported being treated with flagyl for BV, and metronidazole, but no meds and no recent dx of UTI, only BV in chart. Pt specifically stated UTI. * Telephone Encounter - Suri Golden LPN - 01/12/2025 2:54 PM EDT Pt c/o ongoing UTI that has not gone away with treatment, and vaginal discharge. Pt c/o burning on urination pain in back and flanks (hx of kidney problems as per pt) no fever, no hematuria. Pt does not meet nursing protocols. Pt declined appt [facility], scheduled in [place] for Friday. Pt needs PT1. AdvisedER if pain worsens or any sx increase. * Telephone Encounter - Char Stephens - 01/12/2025 12:41 PM EDT Pt called and is concerned about UTI and vaginal bacterial infection, with discharge, Pt believes something else is going on and would like to speak with a nurse or be seen. Please advise. Call back [phone] documented in this encounter Plan of Treatment Upcoming Encounters Date Type Department Care Team (Late st Contact Info) Description 02/21/2025 2:20 PM EDT Office Visit [facility] [address] [place] [address] [phone] Karla Cazares NP [address] [place] [address] 03/16/2025 12:30 PM EDT Office Visit [facility] [address] [place] [phone] Kareen Gomes LLD [address] [place] [address] [phone] documented as of this encounter Visit Diagnoses Not on filedocumented in this encounter Additional Health Concerns Assessment Noted Time PHQ-9 Depression Total Score: 15 025 3:36 PM EDT documented as of this encounter Care Teams Supervisor Dry Cell Assembly Relationship Specialty Start Date End Date Karla Cazares NP [address] [place] [address] PCP - General Family Medicine 11/16/24 Tre King MD [address] [place] [address] [place] [address] Obstetrics and Gynecology 04/25/24 documented as of this encounter
--- OUTSIDE RECORDS SUMMARY | 2025-02-08 08:56 | XMS_ITS | Encounter Summary ---
Author Organization [employer] Address [address] [facility] [address] 7t [place] [address] Care Team Providers Care Student Life Advisor Name Role Phone Tre King MD Unavailable Karla Cazares NP Primary Care Provider [phone] Encounter Details Date Type Department Care Team ([facility] st Contact Info) Description 01/21/2025 Results Follow-Up [address] [address] Gina Mora NP [address] [place] [address] [phone] POCT urinalysis dipstick manually resulted, Herpes Simplex Virus 1 and 2 (IgG), Type-Specific Antibodies, SureSwab Advanced Vaginitis Plus, TMA Social History Tobacco Use Types Packs/Day Years [...] Description 02/21/2025 2:20 PM EDT Office Visit [facility] [address] [place] [phone] Karla Cazares NP [address] [place] [address] 03/16/2025 12:30 PM EDT Office Visit [facility] 102 [place] [phone] Kareen Gomes LLD 102 [place], [place] [phone] documented as of this encounter Visit Diagnoses Not on filedocumented in this encounter Additional Health Concerns Assessment Noted Time PHQ-9 Depression Total Score: 15 12/13/ 025 3:36 PM EDT documented as of this encounter Care Teams Student Life Advisor Relationship Specialty Start Date End Date Karla Cazares NP [address] [place] [address] PCP - General Family Medicine 11/16/24 Tre King MD [address] [place] [address] Obstetrics and Gynecology 04/25/24 documented as of this encounter
--- OUTSIDE RECORDS SUMMARY | 2025-02-08 08:56 | XMS_ITS | Clinical Summary ---
Author Organization [facility] Address [address] [place] [address] Phone Care Team Providers Care Mortar Maker Name Role Phone Pcp, Unknown Primary Care Provider Unavailabl e Allergies Active Allergy Reactions Criticality Noted Date Comments Sulfa (Sulfonamide Antibiotics) 12/2024 Medications levothyroxine (SYNTHROID, LEVOTHROID) 50 MCG tablet Take 50 mcg by mouth every morning. Active OXcarbazepine (TRILEPTAL) 150 MG IMMEDIATE release tablet Take 150 mg by mouth 2 (two) times a day. Active propranoloL (INDERAL LA) 60 mg 24 hr capsule Take 60 mg by mouth daily as needed. Active Encounters Date Type Department Care Team Description 02/01/2025 Telephone [facility] [address] [place] [address] Unknown, Unknown, Appointment from Last 3 Months Social History Tobacco Use Types Packs/Day Years Used Date Smoking Tobacco: Never Assessed Education Answer Date Recorded Are you interested in more education? Not on cj e 09/13/2024 Are you concerned about learning? Not on file 09/13/2024 No 09/13/2024 No 09/13/2024 Digital Access Answer Date Recorded No 09/13/2024 No 09/13/2024 Reliable internet access at home? Not on file 09/13/2024 Device with a working camera? Not on file Intimate Partner Violence Answer Date R ecorded Are you denied basic needs s uch as food, clothing, or medical care? Yes 09/13/2024 In the past 12 months have y ou been in a relationship with a person who hurts, threatens, or tries to control you? No 09/13/2024 Are you denied basic needs s uch as food, clothing, or medical care? Yes 09/13/2024 In the past 12 months have y ou been in a relationship with a person who hurts, threatens, or tries to control you? No 09/13/2024 Comments Unknown Sex and Gender Information Value Date Recorded Sex Assigned at Female 09/13/2024 9:10 AM EDT Legal Sex Female 9:32 PM EDT Gender Identity Female 09/13/2024 9:10 AM EDT Sexual Orientation Don't know 09/13/2024 9: 10 AM EDT Last Filed Vital Signs Vital Sign Reading Time Taken Comments Blood Pressure 100/61 09/13/2024 8:19 AM EDT Pulse 72 09/13/2024 8:19 AM EDT Temperature 36.3 C (97.4 F) 09/13/2024 8:19 AM EDT Respiratory Rate 16 09/13/2024 8:19 AM EDT Oxygen Saturation 100% 09/13/2024 8:19 AM EDT Inhaled Oxygen Concentration - - Weight 102.1 kg (225 lb) 09/13/2024 8:19 AM EDT Height 162.6 cm (5' 4 ) 09/13/2024 8:19 AM EDT Body Mass Index 38.62 09/13/2024 8:19 AM EDT Plan of Treatment Health Maintenance Due Date Last Done Comments Adult Td,Tdap Booster 1972 LIPID PANEL 1972 TSH LEVEL 1972 DEPRESSION SCREENING 1984 SMOKING Hx and SMOKELESS TOB ACCO SCREENING 1985 HEPATITIS C SCREENING 1990 HIV ONE-TIME SCREENING (18-6 5 YEARS) 1990 PAP SMEAR 1993 SCREENING FOR DIABETES 08/18/2007 MAMMOGRAM 2012 COLOGUARD 2017 COLONOSCOPY 2017 COLORECTAL CANCER SCREENING 2017 FIT TEST 2017 FOBT 2017 SIGMOIDOSCOPY 2017 VIRTUAL COLONOSCOPY 2017 PNEUMOCOCCAL VACCINES (50+ y ears) (1 of 1 - PCV) 2022 ZOSTER VACCINES (1 of 2) 2022 INFLUENZA VACCINE (#1) 2025 COVID-19 VACCINE (1 - 2023-2 5 season) 2025 HEPATITIS A VACCINES Aged Out No long er eligible based on patient's age to complete this topic HIB VACCINES Aged Out No longer eligi ble based on patient's age to complete this topic MENINGOCOCCAL VACCINES (ACWY) Aged Out No longer eligible based on patient's age to complete this topic MENINGOCOCCAL VACCINES (B) Aged Out N o longer eligible based on patient's age to complete this topic Medical Devices [place] [id number] [facility] [place] [id number] [facility] [place] [id number] [facility] [place] [place] [id number] [facility] [employer] [employer] [facility] [place] [id number] [place] [id number] Care Teams Mortar Maker Relationship Specialty Start Date End Date Pcp, Unknown PCP - General 09/13/24 Additional Source Comments The information contained in this document represents components of the legal health record. It is not the complete legal health record.[facility]
--- OUTSIDE RECORDS SUMMARY | 2025-02-08 08:56 | XMS_ITS | Clinical Summary ---
Author Organization [facility], Address [address] [place] [phone] Phone Care Team Providers Care Tin Assorter Name Role Phone Unavailable Primary Care Provider Unavailabl e Allergies Active Allergy Reactions Criticality Noted Date Comments Egg-Derived Products High 08/03/2019 Other reaction(s): GI Problems Lactose Intolerance (Gi) 06/04/2022 Sulfa Antibiotics Other (see comments) 09/08/19 14 Sulfacetamide Sodium-Sulfur Other (see comments) 12/27/2022 Medications ARIPiprazole (ABILIFY) 20 MG tablet Take 20 mg by mouth Active cetirizine (ZyrTEC) 10 MG tablet Take 10 mg by mouth in the morning. 5 10/18/19 26 Active cevimeline (EVOXAC) 30 MG capsule Take 30 mg by mouth 3 times daily as needed 5 07/12/19 26 Active famotidine (PEPCID) 40 MG tablet Take 40 mg by mouth 2 times daily as needed 5 Active hydrOXYzine (VISTARIL) 25 MG capsule Take 1 capsule by mouth in the morning and 1 capsule in the evening. Active levothyroxine (SYNTHROID, LEVOTHROID) 75 MCG tablet TAKE 1 TABLET BY MOUTH BEFORE BREAKFAST 5 Active meloxicam (MOBIC) 7.5 MG tablet Take 7.5-15 mg by mouth 5 01/22/20 26 Active MILK THISTLE PO Take 500 mg by mouth in the morning and 500 mg in the evening. Active Mirabegron ER 50 MG tablet sustained-relea se 24 hour Take 50 mg by mouth in the morning. 5 06/22/19 26 Active OLANZapine (ZyPREXA) 5 MG tablet Take 5 mg by mouth Active Docusate Sodium (DSS) 100 MG capsule Take 100 mg by mouth Active OXcarbazepine (TRILEPTAL) 150 MG tablet Take 150 mg by mouth in the morning and 150 mg in the evening. Active polyethylene glycol (GLYCOLAX) 17 GM/SCOOP powder Take 17 g by mouth Active propranolol LA (INDERAL LA) 60 MG 24 hr capsule Take 60 mg by mouth Active sertraline (ZOLOFT) 50 MG tablet Take 50 mg by mouth in the morning. Active Active Problems Problem Noted Date Diagnosed Date Vitamin D deficiency 02/02/2025 Stage 3a chronic kidney disease 02/02/2025 Anemia 06/04/2022 Resolved Problems Problem Noted Date Diagnosed Date Resolved Date Cervical high risk human pap illomavirus (HPV) DNA test positive 02/02/2025 02/02/2025 Cervical atypism 02/02/2025 02/02/2025 Depressive disorder 02/02/2025 02/03/20 Obese class II 02/02/2025 02/02/2025 Female stress incontinence 03/11/2024 0 02/02/2025 Overview (02/02/2025): -Referred to Pelvic Floor physical therapy December 2023 -Plan to establish with Urologist in Apr 2024 for urinary incont and hematuria -Pharmacologic tx: hx of Sjogren's, avoid anticholinergic tx. Initiated Myrbetriq 25mg daily (Feb 2024) Atypical squamous cells of u ndetermined significance on cervical Papanicolaou smear 02/12/2024 02/02/2025 Abnormal uterine bleeding 12/29/2023 Cervical intraepithelial neoplasia grade 1 12/29/2023 02/02/2025 Overview (02/02/2025): Followed by Dr. King - [facility] 03/29 Cervical biopsy MADHAV 1 07/22/23: Pap ASCUS HPV + 09/13/23: Colposcopy results MADHAV 1 10/03/23: LEEP w/ results CIN1 Plan: co-testing in 1 year, scheduled 07/27/24 Anxiety 12/27/2022 02/02/2025 Bipolar affective disorder, current episode mixed 12/27/2022 02/02/2025 Insomnia due to other mental disorder 12/27/2022 02/02/2025 Gastroesophageal reflux disease 06/04/2022 02/02/2025 Overview (02/02/2025): Continues famotidine 40mg BID PRN Irritable bowel syndrome with constipation 08/02/2016 02/02/2025 Sj gren's syndrome 09/01/2014 02/02/2025 Hypothyroidism 09/07/2013 02/02/2025 Overview (02/02/2025): Continues levothyroxine 75mcg daily Lab Results Component Value Date TSH 1.05 02/23/2024 Schizoaffective disorder 09/07/2013 Bipolar disorder 10/07/2012 02/02/2025 Posttraumatic stress disorder 10/07/2012 02/02/2025 Encounters Date Type Department Care Team Description 01/20/2025 Documentation Only [facility] [address] [place] [phone] Debra Rhodes 01/20/2025 Documentation Only [facility] [address] [place] [address] Debra Rhodes from Last 3 Months Immunizations Immunization Administration Dates Next Due PPD Test 04/23/2019 Shingrix 01/13/2023,11/11/2022 Td, Unspecified 09/11/2010,11/08/2003 Tdap 01/05/2021 Social History Tobacco Use Types Packs/Day Years Used Date Smoking Tobacco: Never Assessed Comments Unknown Sex and Gender Information Value Date Recorded Sex Assigned at Not on file Legal Sex Female 4:11 PM EDT Gender Identity Not on file Sexual Orientation Not on file Plan of Treatment Upcoming Encounters Date Type Department Care Team (Late st Contact Info) Description 02/08/2025 3:30 PM EDT Office [facility] [address] [phone] Ibeth Huntley, [address] [place] [address] Health Maintenance Due Date Last Done Comments Breast Cancer Screening 1972 Hepatitis B Vaccine (1 of 3 - 19+ 3-dose series) 08/17 Pneumococcal Vaccine: 50+ Years (1 of 2 - PCV) 992 Colorectal Cancer Screening: Annual FOBT 2021 Colorectal Cancer Screening: Colonoscopy 2021 Colorectal Cancer Screening: Sigmoidoscopy 2021 Influenza Vaccine (#1) 2025 Insurance Medicaid [place]
--- OUTSIDE RECORDS SUMMARY | 2025-02-08 08:56 | XMS_ITS | Encounter Summary ---
Author Organization [facility] [facility] Address [address] [place] [address] 7 [place] [address] Care Team Providers Care Truck Crane Operator Name Role Phone Tre King MD Unavailable Karla Cazares NP Primary Care Provider [phone] Encounter Details Date Type Department Care Team ([facility] Contact Info) Description 12/28/[address] [facility] [place] [address] [place] [phone] Adelso Iverson AGNP [address] [place] [address] Social History Tobacco Use Types Packs/Day Years [...] with others, in a hotel, in a nursing home, living outside on the street, on [...] Zandra Emery documented as of this encounter Plan of Treatment Upcoming Encounters Date Type Department Care Team (Late st Contact Info) Description 02/21/2025 2:20 PM EDT Office Visit [facility] [address] [place] [phone] Karla Cazares NP [address] [place] [address] 03/16/2025 12:30 PM EDT Office Visit [facility] [address] [place] [phone] Kareen Gomes, MIRAD [address] [place] [address] documented as of this encounter Visit Diagnoses Not on filedocumented in this encounter Additional Health Concerns Assessment Noted Time PHQ-9 Depression Total Score: 15 025 3:36 PM EDT documented as of this encounter Care Teams Truck Crane Operator Relationship Specialty Start Date End Date Karla Cazares NP [address] [place] [address] PCP - General Family Medicine 11/16/24 Tre King MD [address] [place] [address] Obstetrics and Gynecology 04/25/24 documented as of this encounter
--- OUTSIDE RECORDS SUMMARY | 2025-02-08 08:56 | XMS_ITS | Encounter Summary ---
Author Organization [employer] [facility] Address [address] [place] [address] 7 [place] [address] Care Team Providers Care Construction Estimator Name Role Phone Mitzi Duffy Primary Care Provider [phone] Tre King MD Unavailable Karla Cazares NP Primary Care Provider [phone] Reason for Visit * Reason Comments Med Refill Encounter Details Date Type Department Care Team ([facility] st Contact Info) Description 02/05/2024 Refill [facility] [address] [place] [address] Sheldon Martinez MD [address] [place] [address] Social History Tobacco Use Types Packs/Day Years [...] Description 02/21/2025 2:20 PM EDT Office Visit [facility] MEDICAL [address] [place] [phone] Karla Cazares NP [address] [place] [address] 03/16/2025 12:30 PM EDT Office Visit [facility] D[facility] [address] [place] [phone] Kareen Gomes LLD [address] [place] [address] documented as of this encounter Visit Diagnoses Not on filedocumented in this encounter Additional Health Concerns Assessment Noted Time PHQ-9 Depression Total Score: 0 12/24/19 24 11:34 AM EDT documented as of this encounter Care Teams Construction Estimator Relationship Specialty Start Date End Date Mitzi Duffy FNP [address] [place] [address] PCP - General Family Medicine 02/05/22 11/15/24 Karla Cazares NP [address] [place] [address] PCP - General Family Medicine 11/16/24 Tre King MD [address] [place] [address] Obstetrics and Gynecology 04/25/24 documented as of this encounter
--- OUTSIDE RECORDS SUMMARY | 2025-02-08 08:56 | XMS_ITS | Encounter Summary ---
Author Organization [facility] Address [address] [place] [address] [address] [place] [address] Care Team Providers Care Clinical Coder Name Role Phone Tre King MD Unavailable Karla Cazares NP Primary Care Provider [phone] Encounter Details Date Type Department Care Team ([facility] Contact Info) Description 12/31/2024 Results Follow-Up [facility] [address] [place] [phone] Adelso Iverson AGNP [address] [place] [address] POCT urinalysis dipstick manually resulted, SureSwab Advanced Vaginitis, TMA, Hemoglobin A1c, Additional followed-up results: 7 Social History Tobacco Use Types Packs/Day Years [...] with others, in a hotel, in a alf, living outside on the street, on a [...] 02/21/2025 2:20 PM EDT Office Visit [facility] [address] [place] [phone] Karla Cazares NP [address] [place] [address] 03/16/2025 12:30 PM EDT Office Visit [facility] [address] [place] [phone] Kareen Gomes LLD [address] [place] [address] documented as of this encounter Visit Diagnoses Diagnosis Bacterial vaginosis- Primary Unspecified vaginitis and vulvovaginitis documented in this encounter Additional Health Concerns Assessment Noted Time PHQ-9 Depression Total Score: 15 025 3:36 PM EDT documented as of this encounter Care Teams Clinical Coder Relationship Specialty Start Date End Date Karla Cazares NP [address] [place] [address] PCP - General Family Medicine 11/16/24 Tre King MD [address] [place] [phone] Obstetrics and Gynecology 04/25/24 documented as of this encounter
--- OUTSIDE RECORDS SUMMARY | 2025-02-08 08:56 | XMS_ITS | Encounter Summary ---
Author Organization [employer] Address [address] [place] [address] Care Team Providers Care Receiving Distribution Station Operator Name Role Phone Mitzi Duffy Primary Care Provider [phone] Tre King MD Unavailable Karla Cazares NP Primary Care Provider [phone] Reason for Visit * Reason Onset Date Comments Call back Request 03/19/2024 Encounter Details Date Type Department Care Team (Late st Contact Info) Description 03/19/2024 Telephone [facility] [address] [place] [address] Mitzi Duffy FNP [address] [place], [place] [phone] Call back Request Social History Tobacco Use Types Packs/Day Years [...] encounter Miscellaneous Notes * Telephone Encounter - ANNE-AMRIE Gan - 03/29/2024 6:30 PM EDT Last time I spoke with Nova she was only interested in preservative free eye drops/gel. I spoke with pharmacist on 03/16/24 and sent in what he thought would be covered by insurance. If difficulty with coverage, would recommend she reach out to insurance company directly to see if there are any preservative free eye drops/gel they cover. Thanks! * Telephone Encounter - Camilla Landis RN - 03/29/2024 10:53 AM EDT Telephone call returned to patient in regards to below message. Patient stating she is not doing well as her eyes bother her and she is unable to get eye drops. Advised patient I would speak with pharmacy. Patient verbalized understanding and denied having any further questions or concerns at this time. Patient to follow up as needed. Telephone call to pharmacy. Pharmacy stating that preferred medication is unavailable and if they were able to order the insurance still would not covered. Patient can get script for drops she got inSeptember as the have them in stock and are covered by insurance. * Telephone Encounter - Anisa Griggs - 03/24/2024 11:15 AM EDT Tc from pt requesting a call back, please see notes. Please contact at [phone] * Telephone Encounter - Brett Lindo - 03/19/2024 4:29 PM EDT Tc from pt requesting call back regarding incontinence medication. Please contact pt at [phone]. documented in this encounter Plan of Treatment Upcoming Encounters Date Type Department Care Team (Late st Contact Info) Description 02/21/2025 2:20 PM EDT Office Visit [facility] [address] [place] [phone] Karla Cazares NP [address] [place] [address] 03/16/2025 12:30 PM EDT Office Visit [facility] [address] [place] [phone] Kareen Gomes LLD [address] [place] [address] documented as of this encounter Visit Diagnoses Not on filedocumented in this encounter Additional Health Concerns Assessment Noted Time PHQ-9 Depression Total Score: 0 12/24/19 24 11:34 AM EDT documented as of this encounter Care Teams Receiving Distribution Station Operator Relationship Specialty Start Date End Date Mitzi Duffy FNP [address] [place] [address] PCP - General Family Medicine 02/05/22 11/15/24 Karla Cazares NP [address] [place] [address] PCP - General Family Medicine 11/16/24 Tre King MD [address] [place] [address] Obstetrics and Gynecology 04/25/24 documented as of this encounter
--- OUTSIDE RECORDS SUMMARY | 2025-02-08 08:56 | XMS_ITS | Clinical Summary ---
Author Organization [employer] Address [address] [place] [address] 7 [place] [address] Care Team Providers Care Outside Sales Representative Insurance Name Role Phone Tre King MD Unavailable Karla Cazares NP Primary Care Provider [phone] Allergies Active Allergy Reactions Criticality Noted Date Comments Egg-Derived Products High 08/03/2019 Other reaction(s): GI Problems Lactose Intolerance (Gi) 06/04/2022 Sulfa Antibiotics Unknown 09/07/2013 Sulfacetamide Sodium-Sulfur Unknown 12/28/19 23 Medications * This document contains information received from the source organization and may not represent a complete record from that organization. hydrOXYzine pamoate (Vistaril) 25 MG capsule Take 1 capsule by mouth every 12 (twelve) hours. Active hydrocortisone 2.5 % creamIndications: Eczematous dermatitis of upper and lower eyelids of both eyes Apply topically 2 times daily. 3.5 g 023 Active Mouthwashes (Biotene Dry Mouth) liquidIndications :Sjogren's syndrome, with unspecified organ involvement (CMS/HCC) TAKE 1 SPRAY BY MOUTH IF NEEDED (DRY MOUTH). 237 mL 10 024 Active cevimeline (Evoxac) 30 MG capsuleIndication s:Sjogren's syndrome, with unspecified organ involvement (CMS/HCC) Take 1 capsule (30 mg) by mouth if needed in the morning, at noon, and at bedtime (Dry Mouth). 90 capsule 3 025 2025 Active fluticasone (Flonase) 50 MCG/ACT nasal sprayIndications: Seasonal allergies Administer 1-2 sprays into each nostril if needed each day for rhinitis or allergies. Shake gently. Before first use, prime pump. After use, clean tip and replace cap. 16 g 3 025 2025 Active levothyroxine (Levoxyl) 75 MCG tabletIndications :Other specified hypothyroidism TAKE 1 TABLET BY MOUTH BEFORE BREAKFAST 90 tablet 1 Active cetirizine (ZyrTEC) 10 MG tabletIndications :Seasonal allergies Take 1 tablet (10 mg) by mouth Once per day. 90 tablet 3 025 2025 Active ARIPiprazole (Abilify) 20 MG tablet Take 20 mg by mouth at bedtime. Active OLANZapine (ZyPREXA) 5 MG tablet Take 5 mg by mouth at bedtime. Active propranolol (Inderal) 20 MG tablet Take 20 mg by mouth 3 times daily. Active sertraline (Zoloft) 50 MG tablet Take 50 mg by mouth Once per day. Active Kava, Piper methysticum, (KAVA KAVA PO) Take 500 mg by mouth at bedtime. Active milk thistle 175 MG tablet Take 500 mg by mouth in the morning and 500 mg in the evening. Active VALERIAN ROOT PO Take 445 mg by mouth if needed. Active mirabegron ER (Myrbetriq) 50 MG 24 hr tabletIndications :Urinary, incontinence, stress female Take 1 tablet (50 mg) by mouth Once per day. Do not crush, chew, or split. 90 tablet 1 025 2025 Active docusate sodium (Colace) 100 MG capsuleIndication s:Chronic constipation Take 1 capsule (100 mg) by mouth Once daily as needed for constipation. 90 capsule 3 Active polyethylene glycol, PEG, 3350 (MiraLax) 17 GM/SCOOP powderIndications :Chronic constipation Take 17 g by mouth in the morning. Dissolve in 4-8 oz of liquid. 527 g 3 Active polyvinyl alcohol (Liquifilm Tears) 1.4 % ophthalmic solution Administer 1 drop into both eyes 4 times daily. Active meloxicam (Mobic) 7.5 MG tabletIndications :Polyarthralgia Take 1-2 tablets (7.5-15 mg) by mouth Once daily as needed for moderate pain. 60 tablet 3 025 2025 Active famotidine (Pepcid) 40 MG tabletIndications :Gastroesophageal reflux disease, unspecified whether esophagitis present Take 1 tablet (40 mg) by mouth if needed in the morning and at bedtime for heartburn or indigestion. 180 tablet 3 025 Active meloxicam (Mobic) 7.5 MG tabletIndications :Polyarthralgia Take 1-2 tablets (7.5-15 mg) by mouth Once daily as needed for moderate pain. 60 tablet 3 024 2024 Discontinued(R eorder (will not trigger notification to Pharmacy)) famotidine (Pepcid) 40 MG tabletIndications :Gastroesophageal reflux disease, unspecified whether esophagitis present Take 1 tablet (40 mg) by mouth if needed in the morning and at bedtime for heartburn or indigestion. 180 tablet 3 025 2024 Discontinued(R eorder (will not trigger notification to Pharmacy)) metroNIDAZOLE (Metrogel) 0.75 % vaginal gelIndications:Ba cterial vaginosis Insert into the vagina at bedtime for 7 days. 70 g 025 2024 fluconazole (Diflucan) 150 MG tabletIndications :Vaginal christiano Take 1 tablet (150 mg) by mouth 1 (one) time for 1 dose. 1 tablet 025 2024 Active Problems Problem Noted Date Diagnosed Date Herpes zoster without complication 12/28/2024 Urinary, incontinence, stress female 03/11/2024 Overview (04/25/2024): -Referred to Pelvic Floor physical therapy December 2023 -Plan to establish with Urologist in Apr 2024 for urinary incont and hematuria -Pharmacologic tx: hx of Sjogren's, avoid anticholinergic tx. Initiated Myrbetriq 25mg daily (Feb 2024) Assessment & Plan (04/25/2024 5:58 PM EST): -Well controlled with current regimen ASCUS with positive high risk HPV cervical 02/11 LGSIL of cervix of undetermined significance 10/2023 Abnormal uterine bleeding 12/29/2023 Assessment & Plan (01/30/2024 5:02 PM EDT): Followed by [facility] Motor[facility] Delivery Driver - Dr. King Endometrial biopsy negative 04/2021, indication: AUB September - October 2023: diagnostic hysteroscopy, D&C, polypectomy. Path: endometrium w/o atypia or carcinoma. Endometrial polyp Plan: IUD placement through [facility] for endometrial polyp, Nova reports currently waiting for when menses starts, although has not started menses since last procedure. Assessment & Plan (12/29/2023 6:59 PM EDT): Followed by [facility] Motorcycle Delivery Driver - Dr. King Endometrial biopsy negative 04/2021, indication: AUB September - October 2023: diagnostic hysteroscopy, D&C, polypectomy. Path: endometrium w/o atypia or carcinoma. Endometrial polyp Plan: IUD placement December 2023 through [facility] for endometrial polyp Dysplasia of cervix, low grade (MADHAV 1) Overview (01/26/2024): Followed by Dr. King - [facility] 03/29 Cervical biopsy MADHAV 1 07/22/23: Pap ASCUS HPV + 09/13/23: Colposcopy results MADHAV 1 10/03/23: LEEP w/ results CIN1 Plan: co-testing in 1 year, scheduled 07/27/24 Seasonal allergies 12/29/2023 Overview (12/29/2023): Cont cetirizine PRN Healthcare maintenance 12/30/2022 Overview (01/26/2024): Pap: LSIL HPV positive pap 02/2021 followed by LSIL on ECC 03/2021. Feb 2022 ASCUS, HPV pos. September 2023 colposcopy - CIN1. LEEP in September 2023 - LSIL mild, CIN1, mild cervical dysplasia. Due for co-testing Jul 2024 Colon CA screening: iFOBT neg November 2021. Pt declines colonoscopy or cologuard Mammogram: BIRADS 1 on 08/25/23 Assessment & Plan (12/30/2022 7:35 PM EDT): Pap: LSIL HPV positive pap 02/2021 followed by LSIL on ECC 03/2021. Endometrial biopsy negative 04/2021, done to evaluate abnormal bleeding. Feb 2022 ASCUS, HPV pos. Due for co-testing Feb 2023. Colon CA screening: iFOBT neg November 2021. Pt declines colonoscopy or cologuard today. Would prefer annual testing when next available in office Mammogram: BIRADS 09 Apr 2021 Anxiety 12/27/2022 Assessment & Plan (04/25/2024 6:02 PM EST): - Cont following with [facility] - Cont with Cymbalta 60mg daily Assessment & Plan (02/23/2024 3:48 PM EDT): During IBH Consult Nova presenting with excessive worry/anxiety, difficulty controlling worry, and anxiety/worry associated to restlessness and/or feeling keyed-up/On edge , easily fatigued , irritability, and sleep disturbance difficulty falling asleep; for a period of 18+ mo, for some symptoms in the context of relationship issues. Patient carries a diagnosis for Schizoaffective disorder, PTSD, Bipolar disorder. She is connected with [facility] for therapy and psychiatry services. Pt reports being on wait list for DBT with [facility]. Nova is going through a lot of stress lately associated with lack of trust with significant other. Discussed importance to verbalize her needs and establish limits in the relationship. clinician engaged patient with active, reflective listening and used open ended-questions to review for risk. Nova is connected with MH services. Provided coping strategies to use when feeling stressed out. Pt has information for [facility] program with [facility] and understands the importance of reaching out to others. Bipolar affective disorder, current episode mixe d 12/27/2022 Assessment & Plan (02/23/2024 2:43 PM EDT): She has increased anxiety with vaginal sxs, she wants to talk with counselor We'll call for addtl evaluation Patient is to fu with [facility] team for regular fu. Assessment & Plan (01/26/2024 1:58 PM EDT): PROGRESS NOTE: ID: Nova is a 53 y.o. White cis-female with previous documented hx of Depression, Anxiety, Bipolar Disorder, PTSD and Schizoaffective disorder. services including OP Psychotherapy psychopharmacology who presents for increase in Anxiety sxs. During IBH Consult Nova presenting with excessive worry/anxiety, difficulty controlling worry, restless/keyed up/On edge, easily fatigued, difficulty concentrating/Mind going blank , irritability, and muscle tension and Abnormally elevated mood, Flight of ideas, Excessive goal directed activity, and Other: irritability, talkative, racing thoughts, diminished ability to concentrate, paranoia, risky behaviors.; for a period of 18+ mo, for all symptoms in the context of stress relationship with partner, stress relationship with ex-boyfriend, health issues, lack of support and court case. Nova presented with increase anxiety sxs. She reported traumatic event this morning with ex- boyfriend has been the main factor contributing to her sxs. She is connected with OP services through [facility], will have appt with therapist next Friday. She was able to expressed her emotions and behaviors related to current event. PLAN: Continue with current services (defined as services in the past 12 months) Behavioral Health Integration Plan Patient Self Plan Patient to utilize skills provided in intervention , Patient to reach out to [facility] team as needed, Comply with medication , Patient to reach out to [facility] as needed, and Patient to follow-up with external team Chronic pain 12/27/2022 Chronic sinusitis 12/27/2022 Assessment & Plan (12/20/2024 2:57 PM EDT): - Chronic sinusitis with nasal polyps, history of sinus surgery. - Referral to an ear, nose, and throat doctor for further evaluation and management. Orders: Referral to ENT; Future Insomnia due to other mental disorder 12/27/2022 Polyarthralgia 12/27/2022 Assessment & Plan (04/25/2024 5:59 PM EST): Cont Cymbalta 60mg daily. Denies med SE Previous medication: amitriptyline Assessment & Plan (03/17/2023 5:26 PM EDT): Taper of Amitriptyline - 10mg nightly x 2 weeks then STOP Encouraged to contact office/PCP if experiencing withdrawal SE and need to slow down speed of taper Anemia 06/04/2022 Gastroesophageal reflux disease 06/04/2022 Overview (12/30/2022): Continues famotidine 40mg BID PRN Irritable bowel syndrome with constipation 08/02 Assessment & Plan (04/25/2024 5:57 PM EST): IBS-C Previously using metamucil, senna, & miralax PRN, although not sufficiently effective. Linzess 145 mcg was too effective - very loose stools Decreased to Linzess 72 mcg daily, well controlled - Metamucil daily - Miralax PRN - Continue Linzess 72 mcg daily PRN Assessment & Plan (03/11/2024 7:44 AM EDT): IBS-C Previously using metamucil, senna, & miralax PRN, although not sufficiently effective. Linzess 145 mcg was too effective - very loose stools Decreased to Linzess 72 mcg daily, and symptoms well controlled. PA approved. - Continue Linzess 72 mcg daily Assessment & Plan (12/29/2023 7:07 PM EDT): IBS-C Previously using metamucil, senna, & miralax PRN, although not sufficiently effective. Linzess 145 mcg was too effective - very loose stools Decreased to Linzess 72 mcg daily, and symptoms well controlled. PA approved. - Continue Linzess 72 mcg daily Assessment & Plan (09/06/2023 10:32 AM EDT): IBS-C Previously using metamucil, senna, & miralax PRN, although not sufficiently effective. Linzess 145 mcg was too effective - very loose stools Decreased to Linzess 72 mcg daily, and symptoms well controlled. However, denied last fill due to need for PA. Will plan to re-submit PA. In the interim: shared decision making for Linzess 145mcg every other day Assessment & Plan (05/13/2023 10:20 AM EST): IBS-C Previously using metamucil, senna, & miralax PRN, although not sufficiently effective. Linzess 145 mcg was too effective - very loose stools Decreased to Linzess 72 mcg daily, and symptoms well controlled. However, denied last fill due to need for PA. Will plan to re-submit PA. In the interim: shared decision making for Linzess 145mcg every other day Assessment & Plan (03/17/2023 5:25 PM EDT): IBS-C Previously using metamucil and miralax PRN, although not sufficiently effective. Feels as though Linzess 145 mcg has been too effective - very loose stools Decrease to Linzess 72 mcg daily With taper of amitriptyline, suspect may also see reduction in anticholinergic SE (especially beneficial given hx of Sjogren's) Assessment & Plan (12/30/2022 7:02 PM EDT): Reports IBS-C Previously using metamucil and miralax PRN, although not sufficiently effective. would be interested in trial of other medication for IBS - will do research on appropriate medication given PMH Assessment & Plan (06/04/2022 6:42 PM EST): -Continue with metamucil and miralax PRN Sjogren's syndrome 09/01/2014 Assessment & Plan (12/20/2024 2:57 PM EDT): - Sjogren's syndrome causing dry eyes and mouth. No current specialist for management. - Referral to an eye doctor for management of dry eyes. Consideration of artificial saliva for dry mouth. Referral to an ear, nose, and throat doctor. Orders: Referral to Ophthalmology; Future Assessment & Plan (04/25/2024 6:01 PM EST): -Continue with eye drops - Refresh (flaxseed oil, no preservatives) - not covered by insurance so she is purchasing OTC -Continues Evoxac 30mg TID PRN for xerostomia -Previously med trial: Salagen (DC d/t decreased effectiveness) Assessment & Plan (03/11/2024 7:44 AM EDT): -Continue with eye drops - Refresh (flaxseed oil, no preservatives) - not covered by insurance so she is purchasing OTC -Continues Salagen 10mg TID for xerostomia -Previously using biotene for dry mouth, reports no longer effective. She is interested in trial of other medication - Evoxac. Will investigate further if appropriate option and consult with pharmacy. Assessment & Plan (12/29/2023 7:18 PM EDT): -Continue with eye drops and biotene as needed -Continues Salagen 10mg TID for xerostomia Assessment & Plan (09/06/2023 10:33 AM EDT): -Continue with eye drops and biotene as needed -Continues Salagen 10mg TID for xerostomia Assessment & Plan (05/13/2023 10:20 AM EST): -Continue with eye drops and biotene as needed -Continues Salagen 10mg TID for xerostomia Assessment & Plan (12/30/2022 7:05 PM EDT): -Continue with eye drops and biotene as needed -Continues Salagen 5mg QID for xerostomia Assessment & Plan (06/04/2022 6:47 PM EST): -Continue with eye drops as needed Hypothyroidism 09/07/2013 Overview (04/25/2024): Continues levothyroxine 75mcg daily Lab Results Component Value Date TSH 1.05 02/23/2024 Assessment & Plan (12/30/2022 7:04 PM EDT): Repeat TSH ordered today Assessment & Plan (06/04/2022 6:41 PM EST): -Continues levothyroxine 75mcg daily -TSH WNL October 2021 Schizoaffective disorder 09/07/2013 Assessment & Plan (12/20/2024 2:57 PM EDT): - stable and controlled - in supportive housing - no changes or concerns today Assessment & Plan (12/30/2022 7:05 PM EDT): -Followed by mental health team at [facility] -Continue with current med regimen: oxcarbazepine 150mg QAM and 300mg at bedtime olanzapine 10mg at bedtime Assessment & Plan (06/04/2022 6:45 PM EST): -Followed by mental health team at [facility] -Continue with current med regimen: -mirtazapine 15mg at bedtime -oxcarbazepine 150mg QAM and 300mg at bedtime -hydroxyzine 25mg BID PRN anxiety -olanzapine 10mg at bedtime PTSD (post-traumatic stress disorder) 10/07/2012 Resolved Problems Problem Noted Date Diagnosed Date Resolved Date Subacute vaginitis 02/23/2024 Assessment & Plan (02/23/2024 2:42 PM EDT): It seems to be cnadidiasis , probably exacerbated after abs for UTI (Keflex). Advised to use Clotrimazole cream bid on both labia + Desitin paste Rx Fluconazole weekly x 4w We'll call back prn abn results of vag swab Advised to use probiotics while taking abs. FU with [facility] Urinary tract infection with hematuria 02/12/2024 03/11/2024 Assessment & Plan (02/12/2024 4:36 PM EDT): Urinalysis showed UTI and hematuria. Prescribing Keflex for treatment. Follow up with PCP and OBGYN. Relevant Medications Cephalexin (Keflex) 500 mg capsule Bilateral carpal tunnel syndrome 12/27/2022 12/28/2024 Numbness in both legs 12/27/20222023 Obesity 12/27/2022 12/29/2023 Herpes zoster without complication 06/04/2022 12/30/2022 Vitamin D insufficiency 06/04/2022 09/0 10/2023 Overview (03/17/2023): Resolved, Vit D 78.7 ng/mL in December 2022 No current tx/supplement necessary at this time Assessment & Plan (06/04/2022 6:42 PM EST): -Continues with Vit D 2000 units daily -Last Vit D 18 in November 2020 -Recheck Vit D with next set of labs Atypical squamous cells of u ndetermined significance on cytologic smear of cervix (ASC-US) 08/02/2016 12/29/2023 Assessment & Plan (09/06/2023 10:24 AM EDT): -LSIL/HPV+ Feb 2021, colposcopy 03/14/2021 -Followed at [facility], reports recent Pelvic US in Jul 2023, with plan for upcoming EMB through [facility]. Will request records from [facility]. Assessment & Plan (12/30/2022 7:03 PM EDT): -LSIL/HPV+ Feb 2021, colposcopy 03/14/2021 -Followed at [facility], reports last pap within the past year Assessment & Plan (06/04/2022 6:40 PM EST): -LSIL/HPV+ Feb 2021, colposcopy 03/14/2021 -Followed at [facility] Cervical high risk human pap illomavirus (HPV) DNA test positive 08/02/2016 12/29/2023 Depression 10/07/2012 03/08/2024 Encounters * This document contains information received from the source organization and may not represent a complete record from that organization. Date Type Department Care Team Description 02/04/[address] [phone] Karla Cazares NP 02/02/2025 8:30 AM EDT Community Care Management [facility] [address] [phone] Taylor Berkowitz 02/01/2025 Travel 02/01/[address] [phone] Karla Cazares NP 01/30/2025 Results Follow-Up [facility] of [address] [address] Gina Mora NP SureSwab Advanced Vaginitis Plus, TMA, ThinPrep Imaging Pap and HPV mRNA E6/E7 with Reflex to HPV 16,18/45 01/28/2025 2:20 PM EDT Office Visit [address] [address] Gina Mora NP Pap smear for cervical cancer screening (Primary Dx); Vaginal discharge 01/27/[address] [phone] Karla Cazares NP 01/26/2025 1:30 PM EDT Community Care Management [facility] [address] [phone] Taylor Berkowitz 01/21/[address] [phone] Karla Cazares NP 01/21/2025 Orders Only [facility] of [address] [address] Gina Mora NP Bacterial vaginosis (Primary Dx) 01/21/2025 Results Follow-Up [facility] of [address] [phone] Gina Mora NP POCT urinalysis dipstick manually resulted, Herpes Simplex Virus 1 and 2 (IgG), Type-Specific Antibodies, SureSwab Advanced Vaginitis Plus, TMA 01/21/2025 Telephone [facility] of [address] [address] Karla Cazares NP 01/21/2025 Travel 01/20/2025 2:45 PM EDT Office Visit [address] [phone] Kareen Gomes, BUTCH Excessive attrition of teeth (Primary Dx) 01/20/2025 9:20 AM EDT Office Visit [address] [address] Gina Mora NP Dysuria (Primary Dx); Encounter for screening examination for sexually transmitted infection; Encounter for long-term (current) use of medications; Vaginal discharge; Colon cancer screening; Vaginal itching 01/20/[address] [address] Gina Mora NP 01/19/[address] [phone] Karla Cazares NP Polyarthralgia; Gastroesophageal reflux disease, unspecified whether esophagitis present 01/19/2025 Travel 01/13/2025 Travel 01/12/2025 Travel 01/12/[address] [phone] Karla Cazares NP 01/12/[address] [phone] Karla Cazares NP 01/06/2025 10:40 AM EDT Office Visit [address] [phone] Adelso Iverson AGNP Sjogren's syndrome with tubulo-interstitial nephropathy (CMS/HCC) (Primary Dx); Vaginal christiano 01/02/2025 Travel 01/01/[address] [phone] Claire Crawford LPN 12/31/2024 Results Follow-Up [address] [phone] Adelso Iverson AGNP POCT urinalysis dipstick manually resulted, SureSwab Advanced Vaginitis, TMA, Hemoglobin A1c, Additional followed-up results: 7 12/31/2024 Refill [facility] [address] [place] [address] Clive, Mitzi, GROMMET MAN Polyarthralgia 12/30/2024 Refill [facility] [address] [place] [address] Mitzi Duffy, GROMMET MAN Sjogren's syndrome, with unspecified organ involvement (CMS/HCC) 12/28/2024 1:20 PM EDT Office Visit [address] [phone] Adelso Iverson AGNP Annual visit for general adult medical examination with abnormal findings (Primary Dx); Dysuria; Vaginal discharge; Encounter for screening mammogram for breast cancer; Chronic constipation; Screening for lipid disorders; Screening for diabetes mellitus (DM); Routine screening for STI (sexually transmitted infection); Cerumen in auditory canal on examination 12/28/2024 Orders Only [address] [phone] Adelso Iverson AGNP 12/28/[address] [phone] Karla Cazares NP 12/27/2024 Travel 12/23/2024 3:30 PM EDT Office Visit [facility] [address] [place] [phone] Kareen Gomes LLD Excessive attrition of teeth (Primary Dx) 12/23/[address] [phone] Karla Cazares NP Urinary, incontinence, stress female 12/20/2024 1:40 PM EDT Office Visit [address] [phone] aKrla Cazares NP Sjogren's syndrome with keratoconjunctivitis sicca (CMS/HCC) (Primary Dx); Chronic sinusitis, unspecified location; Other schizoaffective disorders (CMS/HCC) 12/17/2024 Travel 12/17/2024 Telephone [facility] [address] [place] [address] Karla Cazares NP 12/16/[address] [facility] [address] [place] [phone] Karla Cazares NP 12/14/2024 Patient Outreach [facility] [address] [place] [address] Karla Cazares NP Care Coordination ([facility] outreach for SDOH housing search-referral completed ) 12/01/2024 4:45 PM EDT Office Visit [facility] [address] [place] [phone] Kareen Gomes LLD Excessive attrition of teeth (Primary Dx) 12/01/[address] [phone] Kareen Gomes LLD 11/30/2024 10:30 AM EDT Office Visit [address] [phone] Virginia Story 11/25/2024 Travel 11/18/2024 Travel 11/09/2024 Telephone [facility] [address] [place] [address] Mitzi Duffy FNP Med Refill from Last 3 Months Immunizations Immunization Administration Dates Next Due PPD Test 04/23/2019 Td (adult), unspecified 09/11/2010,11/08/2003 Tdap 01/05/2021 Zoster, Recombinant 01/13/2023,11/11/2022 Social History Tobacco Use Types Packs/Day Years Used Date Smoking Tobacco: Never Passive Smoke Exposure: Never Smokeless Tobacco: Never Tobacco Cessation:Counseling Given: Not Answered Alcohol Use Standard Drinks/Week Comments Never 0 [...] Q2 Not on file 04/29/2024 Comments Unknown Intention Date Recorded No desire to become (finding) 0 12/28/2024 Sex and Gender Information Value Date Recorded Sex Assigned at Female 04/08/2022 10:20 AM EDT Legal Sex Female 10:20 AM EDT Gender Identity Female 04/08/2022 10:20 AM EDT Sexual Orientation Aromantic 03/21/2023 9: 52 AM EDT Sexual Orientation Don't know 03/21/2023 9: 52 AM EDT Last Filed Vital Signs Vital Sign Reading Time Taken Comments Blood Pressure 114/75 01/28/2025 2:00 PM EDT Pulse 74 01/28/2025 2:00 PM EDT Temperature 36.3 C (97.4 F) 12/23/2024 3:40 PM EDT Respiratory Rate 16 03/08/2024 11:51 AM EDT Oxygen Saturation 97% 01/28/2025 2:00 PM EDT Inhaled Oxygen Concentration - - Weight 95.3 kg (210 lb) 01/20/2025 8:56 AM EDT Height 161 cm (5' 3.39 ) 12/20/2024 2:16 PM EDT Body Mass Index 36.75 12/20/2024 2:16 PM EDT Plan of Treatment Upcoming Encounters Date Type Department Care Team (Late st Contact Info) Description 02/21/2025 2:20 PM EDT Office Visit [facility] [address] [place] [address] [phone] Karla Cazares NP [address] [place] [address] 03/16/2025 12:30 PM EDT Office Visit [facility] [address] [place] [phone] Kareen Gomes LLD [address] [place] [address] Health Maintenance Due Date Last Done Comments CT Colonography 1972 Dental X-Ray: Full Mouth 1972 FIT DNA/Cologuard 1972 FIT 1972 FOBT 1970 Sigmoidoscopy 1970 Hepatitis A Vaccines (1 of 2 - Risk 2-dose series) 08/18/1991 Hepatitis B Vaccines (1 of 3 - 19+ 3-dose series) 08/18/1991 Pneumococcal Vaccine: 50+ Years (1 of 1 - PCV) 2022 Colonoscopy 07/23/2023 Colorectal Cancer Screening 07/23/2023 Mammogram 11/17/2024 11/18/2023, 08/07, 10/03/2017 Influenza Vaccine (#1) 2025 SDOH Screening 04/29/2025 04/29/2024 Dental Prophylaxis 06/02/2025 11/30/2024 Dental Oral Exam 06/03/2025 12/01/2024 Depression Monitoring 06/30/2025 12/28/2024, 025 Disability Screening 10/22/2025 10/22/2024 Dental X-Ray: Bitewings 12/01/2025 11/30/2024 Alcohol/Substance Use Screening 12/20/2025 12/20/2024 Diabetes: Hemoglobin A1C 12/28/2025 025, 12/24/2023, 10/25/2021, Additional history exists Family Planning (PISQ) 12/28/2025 12/28/2024 Tobacco Screening 01/20/2026 01/20/2025 Cervical Cancer Screening 01/28/2026 HPV/Cotest 01/28/2026 01/28/2025, 07/10, 02/19/2022, Additional history exists Pap Smear 01/28/2026 01/28/2025, 07/10, 02/19/2022, Additional history exists DTaP/Tdap/Td Vaccines (2 - Td or Tdap) 01/05/2031 01/05/2021, 09/11/2010, 11/08/2003 RSV Patients and Patients Aged 60 years or older (1 - 1-dose 75+ series) 08/18/2047 Zoster Vaccines Completed 01/13/2023, 11/11/2022 COVID-19 Vaccine Completed 04/27/2024, 01/2022, 11/15/2020, Additional history exists HIV Screening Completed 12/28/2024, 02/07, 12/24/2023, Additional history exists Hepatitis C Screening Completed 12/28/2024 , 02/23/2024, 12/24/2023, Additional history exists HIB Vaccines Aged Out No longer eligi ble based on patient's age to complete this topic HPV Vaccines Aged Out No longer eligi ble based on patient's age to complete this topic IPV Vaccines Aged Out No longer eligi ble based on patient's age to complete this topic Meningococcal B Vaccine Aged Out No l onger eligible based on patient's age to complete this topic Meningococcal Vaccine Aged Out No andra niesha eligible based on patient's age to complete this topic RSV under 20 months Aged Out No longe r eligible based on patient's age to complete this topic Rotavirus Vaccines Aged Out No longer eligible based on patient's age to complete this topic Procedures Procedure Name Priority Date/Time Associated Diagnosis Comments THINPREP IMAGING PAP AND HPV MRNA E6/E7 WITH REFLEX TO HPV 16,18/45 Routine 01/28/2025 3:03 PM EDT Pap smear for cervical cancer screening SURESWAB(R) ADVANCED VAGINITIS PLUS, TMA Routine 01/28/2025 2:59 PM EDT Vaginal discharge CASE PRESENTATION, DETAILED AND EXTENSIVE TREATMENT PLANNING Routine 01/20/2025 2:45 PM EDT 29 O RESIN-BASED COMPOSITE - 1 SURF, POSTERIOR Routine 01/20/2025 2:45 PM EDT Excessive attrition of teeth 30 O RESIN-BASED COMPOSITE - 1 SURF, POSTERIOR Routine 01/20/2025 2:45 PM EDT Excessive attrition of teeth SURESWAB(R) ADVANCED VAGINITIS PLUS, TMA Routine 01/20/2025 9:40 AM EDT POCT URINALYSIS DIPSTICK Routine 01/20/2025 9:28 AM EDT Dysuria HSV 1/2 IGG,TYPE SPECIFIC AB Routine 01/20/2025 9:27 AM EDT Encounter for screening examination for sexually transmitted infection Vaginal itching 7,8,9,11 PARTIAL DENTURE - RESIN Routine 01/20/2025 12:00 AM EDT SURESWAB(R) ADVANCED VAGINITIS, TMA Routine 12/28/2024 2:48 PM EDT Vaginal discharge COMPREHENSIVE METABOLIC PANEL Routine 12/28/2024 2:38 PM EDT Screening for diabetes mellitus (DM) LIPID PANEL, STANDARD Routine 12/28/2024 2:38 PM EDT Screening for lipid disorders HEMOGLOBIN A1C Routine 12/28/2024 2:38 PM EDT Screening for diabetes mellitus (DM) RPR (MONITOR) W/REFL TITER Routine 12/28/2024 2:37 PM EDT Routine screening for STI (sexually transmitted infection) TRICHOMONAS VAGINALIS RNA, QUALITATIVE, TMA Routine 12/28/2024 2:37 PM EDT Routine screening for STI (sexually transmitted infection) HEPATITIS C AB W/REFL TO HCV RNA, QN, PCR Routine 12/28/2024 2:37 PM EDT Routine screening for STI (sexually transmitted infection) HIV 1/2 ANTIGEN/ANTIBODY, FOURTH GENERATION W/RFL Routine 12/28/2024 2:37 PM EDT Routine screening for STI (sexually transmitted infection) CHLAMYDIA/N. GONORRHOEAE RNA, TMA, UROGENITAL Routine 12/28/2024 2:37 PM EDT Routine screening for STI (sexually transmitted infection) POCT URINALYSIS DIPSTICK Routine 12/28/2024 1:48 PM EDT Dysuria CASE PRESENTATION, DETAILED AND EXTENSIVE TREATMENT PLANNING Routine 12/23/2024 3:30 PM EDT 6 DIFF(V)L RESIN-BASED COMPOSITE - 4 OR MORE SURFACES (ANTERIOR) Routine 12/23/2024 3:30 PM EDT CASE PRESENTATION, DETAILED AND EXTENSIVE TREATMENT PLANNING Routine 12/01/2024 4:45 PM EDT INTERPRETATION OF DIAGNOSTIC IMAGE BY OTHER PRACTITIONER Routine 12/01/2024 4:45 PM EDT TELEDENTISTRY - ASYNCHRONOUS Routine 12/01/2024 4:45 PM EDT COMPREHENSIVE ORAL EVALUATION - NEW OR ESTABLISHED PATIENT Routine 12/01/2024 4:45 PM EDT INTRAORAL BITEWING RADIOGRAPHIC IMAGE IMAGE CAPTURE ONLY Routine 11/30/2024 10:30 AM EDT BITEWINGS - 4 RADIOGRAPHIC IMAGES Routine 11/30/2024 10:30 AM EDT CASE PRESENTATION, DETAILED AND EXTENSIVE TREATMENT PLANNING Routine 11/30/2024 10:30 AM EDT ORAL HYGIENE INSTRUCTIONS Routine 11/30/2024 10:30 AM EDT PROPHYLAXIS - ADULT Routine 11/30/2024 1 0:30 AM EDT SCREENING OF A PATIENT Routine 10:30 AM EDT BI MAMMOGRAM SCREENING TOMOSYNTHESIS BILATERAL Routine 08/25/2023 12:10 PM EDT from Last 3 Months or Most Recently Relevant to Health Maintenance Results * ThinPrep Imaging Pap and HPV mRNA E6/E7 with Reflex to HPV 16,18/45 (01/28/2025 3:03 PM EDT) Clinical Information: Atlas5D Comment:APOHR,APOHRNG,LEEP CIN1 LMP: Atlas5D Comment:NONE GIVEN Prev. PAP: Atlas5D Comment:NONE GIVEN Prev. BX: Atlas5D Comment:NO SOURCE: Atlas5D Comment:Cervix, Endocervix Statement Of Adequacy: Atlas5D Comment: Satisfactory for evaluation. Endocervical/transformation zone component absent. Interpretation/Res ult: Atlas5D Comment: Cytology Results: Negative for intraepithelial lesion or malignancy. COMMENT: Atlas5D Comment: This Pap test has been evaluated with the ThinPrep(R) Imaging System. Process Improvement Manager: [email or web address] Comment: RMM, CT(ASCP) CT screening location: [place] [address] Review Process Improvement Manager: Atlas5D Comment: RXB, CT(ASCP) CT screening location: [place] [address] (Always Message) Que Watch[employer] Comment: EXPLANATORY NOTE: The Pap is a screening test for cervical cancer. It is not a diagnostic test and is subject to false negative and false positive results. It is most reliable when a satisfactory sample, regularly obtained, is submitted with relevant clinical findings and history, and when the Pap result is evaluated along with historic and current clinical information. HPV nRNA E6/E7 Not Detected Not Detected Atlas5D Comment: Methodology: Trestle Mainternance Laborer-Mediated Amplification This assay detects E6/E7 viral messenger RNA (mRNA) from 14 high-risk HPV types (16,18,31,33,35,39,45,51,52,56,58,59,66,68). Cervical sources are required for HPV testing. If a vaginal source from a patient who has had a total hysterectomy with removal of cervix was submitted, please contact the testing laboratory for alternative testing options. For additional information, please refer to http://Imaxio.Eye-Q/faq/KXE379q6 (This link if provided for information/ educational purposes only.) Pap Vial 01/28/2025 3:03 PM EDT 01/31/2025 3:28 AM EDT Narrative [facility] - 02/01/2025 1:15 PM EDT SPLIT 01/28/2025 FROM [id number] [facility] TYPO MACHINE OPERATOR LAB PATHOLOGY ORDERABLES Final R esult [facility] [address], [place] [address] [facility] [place] [facility] [address] [place] [address] * (ABNORMAL) SureSwab?? Advanced Vaginitis Plus, TMA (01/28/2025 2:59 PM EDT) Only the most recent of2 resultswithin the time period is included. SureSwab 9R) ADV Bacterial Vaginosis (BV), TMA NEGATIVE NEGATIVE Atlas5D Christiano Species DETECTED(A) NOT DETECTED Atlas5D Christiano glabrata NOT DETECTED NOT DETECTED Atlas5D Comment: Christiano species C. albicans, C. tropicalis, C. parapsilosis, and/or C. dubliniensis can be detected, but not differentiated, in the Christiano spp. result. Trichomonas vaginalis (TV), TMA NOT DETECTED NOT DETECTED [employer] Chlamydia trachomatis RNA, TMA, Urogenital NOT DETECTED NOT DETECTED [employer] Neisseria gonorrhoeae RNA, TMA, Urogenital NOT DETECTED NOT DETECTED Atlas5D Comment: For additional information, please refer to https://education.Compass.PrizeBox™/faq/EQC314 (This link is being provided for information/ educational purposes only.) Swab Vaginal structure / Unknown 01/28/2025 2:59 PM EDT 01/28/2025 3:01 PM EDT Narrative [facility] - 01/29/2025 12:49 PM EDT SPECIMEN COLLECTED AT PROVIDER OFFICE. [facility] LAB BODY FLUIDS AND STOOLS ORDER BINDU Final Result [facility] [address], [place] [address] [facility] [place] [address] [place] [address] * (ABNORMAL) POCT urinalysis dipstick manually resulted (01/20/2025 9:28 AM EDT) Only the most recent of2 resultswithin the time period is included. Color, UA Yellow Clarity, UA Clear Glucose, UA Negative Bilirubin, UA Negative Ketones, UA Negative Spec Grav, UA 1.010 Blood, UA Positive(A) Negative, None Detected pH, UA 7.0 Protein, UA Negative Urobilinogen, UA 0.2 Leukocytes, UA Negative Negative, Rare, Trace Nitrite, UA Negative Negative, None Detected Urine 01/20/2025 9:28 AM EDT [facility] TYPO MACHINE OPERATOR POINT OF CARE TEST ENTER/EDIT OR DERABLES Final Result * (ABNORMAL) Herpes Simplex Virus 1 and 2 (IgG), Type-Specific Antibodies (01/20/2025 9:27 AM EDT) HSV 1 IgG, Type Specific Antibody 7.64(H) index [facility] [place] [facility] HSV 2 IgG, Type Specific Antibody <0.90 index [facility] [place] [facility] Comment: Index Interpretation ----- <0.90 Negative 0.90-1.09 Equivocal >1.09 Positive This assay utilizes recombinant type-specific antigens to differentiate HSV-1 from HSV-2 infections. A positive result cannot distinguish between recent and past infection. If recent HSV infection is suspected but the results are negative or equivocal, the assay should be repeated in 4-6 weeks. The performance characteristics of the assay have not been established for pediatric populations, immunocompromised patients, or screening. For additional information, please refer to http://education.TravelCLICK/faq/ZOY856 (This link is being provided for informational/ educational purposes only.) Blood Venous blood specimen / Unknown 01/20/2025 9:27 AM EDT 01/20/2025 9:28 AM EDT Narrative [facility] - 01/21/2025 10:41 AM EDT SPECIMEN COLLECTED AT PROVIDER OFFICE. Gina Mora NP LAB BLOOD ORDERABLES Final Resul t Performing Organization Address [facility] de Phone Number [id number] [address] [place] [address], [facility] [place] [address] [facility] [place] [address] [place] [phone] * (ABNORMAL) SureSwab?? Advanced Vaginitis, TMA (12/28/2024 2:48 PM EDT) SureSwab 9R) ADV Bacterial Vaginosis (BV), TMA POSITIVE(A) NEGATIVE [facility] [place] [facility] Christiano Species DETECTED(A) NOT DETECTED [facility] [place] [facility] Christiano glabrata NOT DETECTED NOT DETECTED [facility] [place] [facility] Comment: Christiano species C. albicans, C. tropicalis, C. parapsilosis, and/or C. dubliniensis can be detected, but not differentiated, in the Christiano spp. result. Trichomonas vaginalis (TV), TMA NOT DETECTED NOT DETECTED [facility] [place] [facility] 12/28/2024 2:48 PM EDT 12/28/2024 2:49 PM EDT Adelso [employer] LAB BODY FLUIDS AND STOOLS ORDER BINDU Final Result Performing Organization Address [facility] de Phone Number MIRIAM [address] [place] [address], [place] [address] [facility] [place] [employer] [address] [place] [address] * (ABNORMAL) Hemoglobin A1c (12/28/2024 2:38 PM EDT) Hemoglobin A1c 6.0(H) <5.7 % [facility] [place] [facility] Comment: For someone without known diabetes, a hemoglobin A1c value between 5.7% and 6.4% is consistent with prediabetes and should be confirmed with a follow-up test. For someone with known diabetes, a value <7% indicates that their diabetes is well controlled. A1c targets should be individualized based on duration of diabetes, age, comorbid conditions, and other considerations. This assay result is consistent with an increased risk of diabetes. Currently, no consensus exists regarding use of hemoglobin A1c for diagnosis of diabetes for children. Blood Venous blood specimen / Unknown 12/28/2024 2:38 PM EDT 12/28/2024 2:39 PM EDT [facility]el[facility] May [facility] BLOOD ORDERABLES Final Resul t MIRIAM [address], [place] [address] [facility] [place] [address] [place] [address] * (ABNORMAL) Lipid Panel, Standard (12/28/2024 2:38 PM EDT) Cholesterol, Total 208(H) <200 mg/dL [facility] [place] [facility] HDL Cholesterol 54 > OR = 50 mg/dL [facility] [place] [facility] Triglycerides 151(H) <150 mg/dL [facility] [place] [facility] LDL Cholesterol 128(H) mg/dL [facility] [employer] [place] [facility] Comment: Reference range: <100 Desirable range <100 mg/dL for primary prevention; <70 mg/dL for patients with CHD or diabetic patients with > or = 2 CHD risk factors. LDL-C is now calculated using the Bahvik-Maki calculation, which is a validated novel method providing better accuracy than the Friedewald equation in the estimation of LDL-C. Bhavik SS et al. DICK. 2013;310(19): 4439-1537 (http://education.Softricity.PrizeBox™/faq/KBE383) Chol/HDLC Ratio 3.9 <5.0 (calc) [facility] [place] [facility] Non-HDL Cholesterol 154(H) <130 mg/dL [facility] [place] [facility] Comment: For patients with diabetes plus 1 major ASCVD risk factor, treating to a non-HDL-C goal of <100 mg/dL (LDL-C of <70 mg/dL) is considered a therapeutic option. Blood Venous blood specimen / Unknown 12/28/2024 2:38 PM EDT 12/28/2024 2:39 PM EDT Adelso Iverson [facility] LAB BLOOD ORDERABLES Final Resul t [facility]UST [address], [place] [address] [facility] [place] [address] [place] [address] * (ABNORMAL) Comprehensive Metabolic Panel (12/28/2024 2:38 PM EDT) Glucose 119(H) 65 - 99 mg/dL [facility] [place] [facility] Comment: Fasting reference interval For someone without known diabetes, a glucose value between 100 and 125 mg/dL is consistent with prediabetes and should be confirmed with a follow-up test. Urea Nitrogen (BUN) 10 7 - 25 mg/dL [facility] [place] [facility] Creatinine, Serum 1.20(H) 0.50 - 1.03 mg/dL [facility] [place] [employer] eGFR 54(L) > OR = 60 mL/min/1. 73m2 [facility] [place] [facility] BUN/Creatinine Ratio 8 6 - 22 (calc) [facility] [place] [employer] Sodium 139 135 - 146 mmol/L [facility] [place] [facility] Potassium 4.0 3.5 - 5.3 mmol/L [facility] [place] [facility] Chloride 100 98 - 110 mmol/L [facility] [place] [facility] Carbon Dioxide 31 20 - 32 mmol/L [facility] Calcium 9.5 8.6 - 10.4 mg/dL [facility] Protein, Total 7.1 6.1 - 8.1 g/dL [facility] Albumin 4.2 3.6 - 5.1 g/dL [facility] Globulin 2.9 1.9 - 3.7 g/dL (calc) [facility] Albumin/Globuli n Ratio 1.4 1.0 - 2.5 (calc) [facility] Bilirubin, Total 0.6 0.2 - 1.2 mg/dL [facility] Alkaline Phosphatase 96 37 - 153 U/L [facility] AST 18 10 - 35 U/L [facility] [place] [facility] ALT 10 6 - 29 U/L [facility] [place] [facility] Blood Venous blood specimen / Unknown 12/28/2024 2:38 PM EDT 12/28/2024 2:39 PM EDT Adelso October AGNP LAB BLOOD ORDERABLES Final Resul t Performing Organization Address [facility] Phone Number [facility] [address], [place] [address] [facility] [place] [employer] [address] [place] [address] * Trichomonas vaginalis RNA, Qualitative, TMA (12/28/2024 2:37 PM EDT) Trichomas vaginalis RNA, QL, TMA NOT DETECTED NOT DETECTED [facility] [place] [facility] Comment: For additional information, please refer to http://education.Compass.PrizeBox™/ faq/Trichomonastma (This link is being provided for informational/ educational purposes only.) Urine (Urine, Random) 12/28/2024 2:37 PM EDT 12/28/2024 2:37 PM EDT Adelso May AGNP LAB BODY FLUIDS AND STOOLS ORDER BINDU Final Result MIRIAM [address], [facility] [place] [address] [facility] [place] [employer] [address] [place] [address] * Hepatitis C Antibody with Reflex to HCV, RNA, Quantitative, Real-Time PCR (12/28/2024 2:37 PM EDT) Hepatitis C Antibody NON-REACT CHRIS NON-REACT CHRIS [facility] [place] [facility] Comment: HCV antibody was non-reactive. There is no laboratory evidence of HCV infection. In most cases, no further action is required. However, if recent HCV exposure is suspected, a test for HCV RNA (test code 59642) is suggested. For additional information please refer to http://Imaxio.Eye-Q/faq/WSS60x4 (This link is being provided for informational/ educational purposes only.) Blood Venous blood specimen / Unknown 12/28/2024 2:37 PM EDT 12/28/2024 2:37 PM EDT us Adelso May AGNP LAB BLOOD ORDERABLES Final Resul t Performing Organization Address [facility] Co de Phone Number MIRIAM [address], [facility] [place] [address] [facility] [place] [address] [place] [address] * Chlamydia/N. Gonorrhoeae RNA, TMA, Urogenitial (12/28/2024 2:37 PM EDT) Chlamydia trachomatis RNA, TMA, Urogenital NOT DETECTED NOT DETECTED [facility] [place] [facility] Neisseria gonorrhoeae RNA, TMA, Urogenital NOT DETECTED NOT DETECTED [facility] [place] [facility] (Always Message) On [facility] [employer] [place] [facility] Comment: The analytical performance characteristics of this assay, when used to test SurePath(TM) specimens have been determined by [facility]. The modifications have not been cleared or approved by the FDA. This assay has been validated pursuant to the CLIA regulations and is used for clinical purposes. For additional information, please refer to https://education.Eye-Q/faq/SIH995 (This link is being provided for information/ educational purposes only.) Urine (Urine, Random) 12/28/2024 2:37 PM EDT 12/28/2024 2:37 PM EDT Adelso May AGNP LAB MICROBIOLOGY - GENERAL ORDER BINDU Final Result Performing Organization Address [facility] de Phone Number [id number] [address] [place] [address], [place] [address] [facility] [place] [employer] [address] [place] [phone] * RPR (Monitor) with Reflex to??Titer (12/28/2024 2:37 PM EDT) RPR (Monitor) w/Refl Titer NON-REACT CHRIS NON-REACT CHRIS [facility] [place] [facility] Blood Venous blood specimen / Unknown 12/28/2024 2:37 PM EDT 12/28/2024 2:37 PM EDT Result [facility] AGNP LAB BLOOD ORDERABLES Final Resul t Performing Organization Address [facility] de Phone Number [id number] [address] [place] [address], [place] [address] [facility] [place] [employer] [address] [place] [phone] * HIV-1/2 Antigen and Antibodies, Fourth Generation, with Reflexes (12/28/2024 2:37 PM EDT) HIV Final Interpretation [facility] [place] [facility] Comment: HIV Negative HIV-1 antigen and HIV-1/HIV-2 antibodies were not detected. There is no laboratory evidence of HIV infection. HIV Antigen/Antibody, 4th Generation NON-REACT CHRIS NON-REAC TIVE [facility] [place] [facility] Blood Venous blood specimen / Unknown 12/28/2024 2:37 PM EDT 12/28/2024 2:37 PM EDT us Adelso Iverson AGN LAB BLOOD ORDERABLES Final Resul t [facility] [address] [facility], [facility], [place] [address] [facility] [place] [facility] [address] [place] [address] * BI Mammogram Screening Tomosynthesis Bilateral (08/25/2023 12:10 PM EDT) Anatomical Region Laterality Modality Breast Bilateral Mammography 08/25/2023 12:1 0 PM EDT Narrative 09/16/2023 10:55 PM EDT J[facility] [address] [place] [address] Mammography Report Signed Patient: Nova Jimenez MR#: [id number] : 1970 Acct:[id number] Age/Sex: 53 / F ADM Date: 08/25/23 Loc: HO.MAMMO Attending Dr: Tre King MD Ordering Physician: Tre King MD Results: 1Negativ e Date of Service: 08/25/23 Follow Up: 1 Year From Orig ina Mammogram Procedure(s): MM tomosynthesis screening BI Accession Number(s): [id number] cc: Mitzi Duffy; Tre King MD EXAMINATION: MM SCREENING DIGITAL BREAST TOMOSYNTHESIS, BILATERAL CLINICAL INFORMATION: Screening. Asymptomatic. COMPARISON: Mammography: This study is compared with prior exams dating back to 2018. TECHNIQUE: Digital breast tomosynthesis is performed in both the craniocaudal and mediolateral oblique views along with computer-aided detection (CAD). Synthesized 2D images are generated from the tomosynthesis. FINDINGS: There are scattered areas of fibroglandular density (ACR BI-RADS breast composition Category b). There are no significant masses, abnormal calcifications, or other abnormalities. MM/MM tomosynthesis screening BI IMPRESSION: No mammographic evidence of malignancy. ASSESSMENT: BI-RADS BI-RADS 1 - Negative RECOMMENDATION: Routine annual mammography screening. 1 year F/U This examination should not preclude the clinical evaluation of a suspicious palpable abnormality. This patient's information was entered into a reminder system with a target due date for their next mammogram. Dictated By: Ena Barron MD Signed By: <Electronically signed by Ena Barron MD in OV> 09/16/232251 DD/ 1210 TD/TT: Draw Bench Operator: Procedure Note Claudetteter, Image - 09/16/2023 [facility] [address] [place], [place] [address] Mammography Report Signed Patient: Nova Jimenez AMR#: [id number] : 1970Acct:[id number] Age/Sex: 53 / FADM Date: 08/25/23 Loc: GABRIELLE Attending Dr: Tre King MD Ordering Physician: Tre King MDResults: 1Negativ e Date of Service: 08/25/23Follow Up: 1 Year From Orig inal Mammogram Procedure(s): MM tomosynthesis screening BI Accession Number(s): [id number] cc: Mitzi Duffy; Tre King MD EXAMINATION: MM SCREENING DIGITAL BREAST TOMOSYNTHESIS, BILATERAL CLINICAL INFORMATION: Screening. Asymptomatic. COMPARISON: Mammography: This study is compared with prior exams dating back to 2018. TECHNIQUE: Digital breast tomosynthesis is performed in both the craniocaudal and mediolateral oblique views along with computer-aided detection (CAD). Synthesized 2D images are generated from the tomosynthesis. FINDINGS: There are scattered areas of fibroglandular density (ACR BI-RADS breast composition Category b). There are no significant masses, abnormal calcifications, or other abnormalities. MM/MM tomosynthesis screening BI IMPRESSION: No mammographic evidence of malignancy. ASSESSMENT: BI-RADS BI-RADS 1 - Negative RECOMMENDATION: Routine annual mammography screening. 1 year F/U This examination should not preclude the clinical evaluation of a suspicious palpable abnormality. This patient's information was entered into a reminder system with a target due date for their next mammogram. Dictated By: Ena Barron MD Signed By: <Electronically signed by Ena Barron MD in OV> 09/16/232251 DD/ 1210 TD/TT: Draw Bench Operator: [facility] External Provider IMG BI PROCEDURES Final Result from Last 3 Months or Most Recently Relevant to Health Maintenance Insurance Member Subscriber Plan / Payer (Ef fective 2023-Present) Name:Nova Jimenez Relation to Subscriber:Self Name:Nova Jimenez Payer ID:Not on file Group ID:Not on file Type:Medicaid Address: [address] Member Subscriber Plan / Payer (Ef fective 2023-Present) Name:Nova Jimenez Relation to Subscriber:Self Name:Nova Jimenez Payer ID:Not on file Group ID:Not on file Type:Medicaid Address: [address] [facility] MEDICAID STAND ADULT DENTAL - [place] PARTIAL (MEDICAID) Care Teams Outside Sales Representative Insurance Relationship Specialty Start Date End Date Karla Cazares NP [address] [place] [address] PCP - General Family Medicine 11/16/24 Tre King MD [address] [place] [address] Obstetrics and Gynecology 04/25/24
== END 2025-02-08 08:47 | disposition home or self-care (01) ==
LOC: HO.HWS 08:20
PROVIDERS: PCP Registered Nurse; Visit Provider Obstetrics & Gynecology
DX: Z01.419 Encounter for gynecological examination (general) (routine) without abnormal findings (principal); N76.0 Acute vaginitis; R35.0 Frequency of micturition
CPT/HCPCS: 99396; 99459

== ENCOUNTER 2025-02-08 08:20 | Outpatient (REF) | payer MEDICAID, SELFPAY ==
[2025-02-08 20:36] LABS: Bacterial Vaginosis PCR NEGATIVE (Negative); Candida Group PCR NOT DETECTED (Not Detect); Candida glab krusei PCR NOT DETECTED (Not Detect); Trichomonas vaginalis PCR NOT DETECTED (Not Detect)
[2025-02-08 21:21] LABS: CT PCR NOT DETECTED (Not Detect.); NG PCR NOT DETECTED (Not Detect.)
== END 2025-02-08 08:21 | disposition home or self-care (01) ==
LOC: HO.LAB 08:20
PROVIDERS: PCP Registered Nurse; Visit Provider Obstetrics & Gynecology
DX: Z01.419 Encounter for gynecological examination (general) (routine) without abnormal findings (principal); Z12.31 Encounter for screening mammogram for malignant neoplasm of breast; N76.0 Acute vaginitis; R35.0 Frequency of micturition; Z11.3 Encounter for screening for infections with a predominantly sexual mode of transmission; Z11.8 Encounter for screening for other infectious and parasitic diseases
CPT/HCPCS: 81003; 81515; 87491; 87591; 99396

== ENCOUNTER 2025-02-08 08:47 | Outpatient (REF) | payer MEDICAID, SELFPAY | END 2025-02-08 08:48 | disposition home or self-care (01) | LOC: HO.LNP 08:47 | PROVIDERS: Visit Provider Obstetrics & Gynecology | DX: R35.0 Frequency of micturition (principal); N76.0 Acute vaginitis | CPT/HCPCS: 87626; 88175 ==

== ENCOUNTER 2025-03-10 14:56 | Outpatient (AMB) | payer MEDICAID, SELFPAY ==
--- NOTE | 2025-03-10 15:03 | MHC.OFFVIS ---
Intake Visit Reasons: Colposcopy Genetic Technologist: Genetic Technologist Present (Kyung) Accompanied by: Self / Same As Patient Allergies Sulfa (Sulfonamide Antibiotics) (SULFA (SULFONAMIDE ANTIBIOTICS)) Allergy (Unknown, Verified 03/10/25 15:10) UNKNOWN HPI Comments Details: Presenting for colposcopy for negative Pap HPV positive, HPV 16/18 negative. The patient stated that she has a heavy episodes of bleeding. [facility] Medical History ASCUS with positive high risk HPV cervical Sjogren syndrome with central nervous system involvement Hypothyroidism PTSD (post-traumatic stress disorder) Schizoaffective disorder Surgical History Hx of eye surgery Hx of straightening of nasal septum Social History Patient Tobacco Use Status: Never used Tobacco Substance Use Type: Marijuana Female Reproductive History Menstrual Age of Menarche: 16 Office Procedures Colposcopy Colposcopy: Pre-Procedure Counseling: Before beginning the procedure, I conducted comprehensive counseling with the patient. We thoroughly discussed the procedure itself, including its details, alternatives, and all associated risks. This included but not limited to the following complications such as bleeding, infection, and injury to the vagina, bladder, and vessels, as well as the potential need for transfusion with all its associated risks. Subsequently, the patient sign the consent. Pap smear result: Negative Pap/HPV positive. Procedure: During the procedure, the following steps were performed: A speculum was inserted, and acetic acid was applied. Colposcopy was conducted, allowing visualization of the transformation zone. Acetowhite lesions were identified at the 6+ 7+ 1 o'clock position. Cervical biopsies were obtained from the 6+ 7+ o'clock position, followed by an endocervical curettage (ECC). Vaginoscopy of the upper vagina revealed no evidence of aceto-white lesions. Hemostasis was achieved using Monsel solution, and the patient tolerated the procedure well. Post-Procedure Instructions: The patient was advised to promptly contact the office or the after hours answering service or go to the emergency room if experiencing a temperature exceeding 100.4?F, abdominal pain, nausea/vomiting, or bleeding. Additionally, the patient was instructed to abstain from vaginal intercourse and bathtub use. The patient confirmed understanding of these instructions. Discharge Instructions: The patient was instructed to schedule a follow-up appointment in 2 weeks for further evaluation and management. Please note that this note was generated using a voice recognition program, and errors may have occurred during range scientist. 52159-[id number] of cervix including upper vagina with biopsy and ECC Procedure code (CPT) selection complete Endometrial Biopsy Details: The patient was counseled regarding the indication and benefits of endometrial sampling to rule out endometrial pathology including not limited to endometrial hyperplasia or endometrial cancer and others; The alternatives (Either do nothing vs. hysteroscopy D&C) & the risks were discussed with the patient including but not limited: pain, uterine perforation, bleeding, infection, possible injury to bladder, bowel, ureter, possible need for blood transfusion with all its possible risks. The patient verbalized understanding all questions answered and signed consent. The patient was placed into the dorsal lithotomy position; a speculum was inserted in the vagina. Using aseptic technique for the procedure, the cervix was cleansed with Betadine. The anterior lip of the cervix was grasped with a single tooth tenaculum. The uterus was sounded to 7 cm with a 4 mm Pipelle was used. Tissues samples were obtained and placed in formalin, in a patient labeled container and sent to the pathology department. At the end of the procedure, there was minimal bleeding noted The patient tolerated the procedure well and was discharged in good condition with the following instructions: Nothing in the vagina until the bleeding stops. No sex until the bleeding stops, to call if any of the following occurs: fever (>100.4), flu-like symptoms, abdominal pain, heavy bleeding, four smelling vaginal discharge. The patient was instructed to schedule a Follow up appointment in 2 weeks to discuss pathology results of the biopsy and treatment options. This note was generated with a voice recognition program. Some errors may have been overlooked during the review of this note. Sometimes these errors may affect the content or meaning of a given sentence. 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 Instructed the patient to schedule an ultrasound with a follow-up appointment in 2 weeks. All questions answered, the patient verbalized understanding and agreed with the plan. This note was generated with a voice recognition program. Some errors may have been overlooked during the review of this note. Sometimes these errors may affect the content or meaning of a given sentence. 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
--- OUTSIDE RECORDS SUMMARY | 2025-03-10 16:24 | XMS_ITS | Encounter Summary ---
Author Organization [employer] Address [address] 7[address] [place] [address] Care Team Providers Care Economics Professor Name Role Phone Tre King MD Unavailable Karla Cazares NP Primary Care Provider [phone] Encounter Details Date Type Department Care Team ([facility] st Contact Info) Description 01/12/[address] [place] [phone] Karla Cazares NP [address] [place] [address] Social History Tobacco Use Types Packs/Day Years [...] or be seen. Please advise. Call back [phone] documented in this encounter Plan of Treatment Upcoming Encounters Date Type Department Care Team (Late st Contact Info) Description 03/16/2025 11:20 AM EDT Telemedicine [facility] [address] [place] [address] [phone] Karla Cazares NP [address] [place] [address] 03/16/2025 12:30 PM EDT Office Visit [facility] [address] [place] [address] [phone] Kareen Gomes LLD [address] [place] [address] 06/24/2025 2:20 PM EST Office Visit [address] [phone] Karla Cazares NP [address] [place] [address] documented as of this encounter Visit Diagnoses Not on filedocumented in this encounter Additional Health Concerns Assessment Noted Time PHQ-9 Depression Total Score: 15 025 3:36 PM EDT documented as of this encounter Care Teams Economics Professor Relationship Specialty Start Date End Date Karla Cazares NP [address] [place] [address] PCP - General Family Medicine 11/16/24 Tre King MD [address] [place] [address] [place] [phone] Obstetrics and Gynecology 04/25/24 documented as of this encounter
--- OUTSIDE RECORDS SUMMARY | 2025-03-10 16:24 | XMS_ITS | Encounter Summary ---
Author Organization [employer] Address [address] 7t [place] [address] Care Team Providers Care Behavioral Intervention Specialist Name Role Phone Tre King MD Unavailable Karla Cazares NP Primary Care Provider [phone] Reason for Visit * Reason Comments Med Refill Encounter Details Date Type Department Care Team ([facility] st Contact Info) Description 02/10/2025 Refill [facility] [address] [place] [address] Mitzi Duffy FNP [address] [place] [address] Other specified hypothyroidism; Sjogren's syndrome, with unspecified organ involvement (CMS/HCC) [...] Info) Description 03/16/2025 11:20 AM EDT Telemedicine [address] [phone] Karla Cazares NP [address] [place] [address] 03/16/2025 12:30 PM EDT Office Visit [facility] [address] [place] [address] [phone] Kareen Gomes, LLD [address] [place] [address] 06/24/2025 2:20 PM EST Office Visit [facility] [address] [place] [phone] Karla Cazares NP [address] [place] [address] documented as of this encounter Visit Diagnoses Diagnosis Other specified hypothyroidism Sjogren's syndrome, with unspecified organ involvement (CMS/HCC) documented in this encounter Additional Health Concerns Assessment Noted Time PHQ-9 Depression Total Score: 15 025 3:36 PM EDT documented as of this encounter Care Teams Behavioral Intervention Specialist Relationship Specialty Start Date End Date Karla Cazares NP [address] [place] [address] PCP - General Family Medicine 11/16/24 Tre King MD [address] [place] [address] Obstetrics and Gynecology 04/25/24 documented as of this encounter
--- OUTSIDE RECORDS SUMMARY | 2025-03-10 16:24 | XMS_ITS | Encounter Summary ---
Author Organization [employer] Address [address] [place] [address] 7 [place] [address] Care Team Providers Care Clothes Wringer Name Role Phone Mitzi Duffy Primary Care Provider [phone] Tre King MD Unavailable Karla Cazares NP Primary Care Provider [phone] Reason for Visit * Reason Comments Med Refill Encounter Details Date Type Department Care Team ([facility] st Contact Info) Description 02/05/2024 Refill [facility] [address] [place] [address] Sheldon Martinez MD [address] [place] [address] Social History Tobacco Use Types Packs/Day Years [...] Info) Description 03/16/2025 11:[address] [facility] [address] [place] [address] [phone] Karla Cazares NP [address] [place] [address] 03/16/2025 12:30 PM EDT Office Visit [facility] [address] [place] [phone] Kareen Gomes LLD [address] [place] [address] 06/24/2025 2:20 PM EST Office Visit [address] [phone] Karla Cazares NP [address] [place] [address] documented as of this encounter Visit Diagnoses Not on filedocumented in this encounter Additional Health Concerns Assessment Noted Time PHQ-9 Depression Total Score: 0 12/24/19 24 11:34 AM EDT documented as of this encounter Care Teams Clothes Wringer Relationship Specialty Start Date End Date Mitzi Duffy FNP [address] [place] [address] PCP - General Family Medicine 02/05/22 11/15/24 Karla Cazares NP [address] [place] [address] PCP - General Family Medicine 11/16/24 Tre King MD [address] [place] [phone] Obstetrics and Gynecology 04/25/24 documented as of this encounter
--- OUTSIDE RECORDS SUMMARY | 2025-03-10 16:24 | XMS_ITS | Encounter Summary ---
Author Organization [employer] Address [address] 7t [place] [address] Care Team Providers Care Architectural Administrative Assistant Name Role Phone Mitzi Duffy Primary Care Provider Tre King MD Unavailable Karla Cazares NP Primary Care Provider [phone] Reason for Visit * Reason Onset Date Comments Medication Question 03/04/2024 Encounter Details Date Type Department Care Team (Late st Contact Info) Description 03/04/2024 Telephone [facility] [address] [place] [address] Mitzi Duffy FNP [address] [place], [place] [phone] Medication Question Social History Tobacco Use Types [...] pt returning Phone call and requesting status pressurization mechanic. * Telephone Encounter - Brett Lindo - 03/04/2024 11:02 AM EDT Tc from pt calling to request Refresh Optive no preservatives oil. Pt stated she was advised by specialist to contact pcp and request medication. If any questions please contact pt at [phone]. documented in this encounter Plan of Treatment Upcoming Encounters Date Type Department Care Team (Late st Contact Info) Description 03/16/2025 11:20 AM EDT Telemedicine [address] [phone] Karla Cazares, JOANN [address] [place] [address] 03/16/2025 12:30 PM EDT Office Visit [facility] [address] [place] [phone] Kareen Gomes LLD [address] [place] [address] [phone] 06/24/2025 2:20 PM EST Office Visit [address] [phone] Karla Cazares NP [address] [place] [address] [phone] documented as of this encounter Visit Diagnoses Not on filedocumented in this encounter Additional Health Concerns Assessment Noted Time PHQ-9 Depression Total Score: 0 12/24/19 24 11:34 AM EDT documented as of this encounter Care Teams Architectural Administrative Assistant Relationship Specialty Start Date End Date Mitzi Duffy FNP [address] [place] [address] PCP - General Family Medicine 02/05/22 11/15/24 Karla Cazares NP [address] [place] [address] PCP - General Family Medicine 11/16/24 Tre King MD [address] [place] [address] Obstetrics and Gynecology 04/25/24 documented as of this encounter
--- OUTSIDE RECORDS SUMMARY | 2025-03-10 16:24 | XMS_ITS | Encounter Summary ---
Author Organization [employer] Address [address] [place] [address] 7 [place] [address] Care Team Providers Care Hebrew Cantor Name Role Phone Tre King MD Unavailable Karla Cazares NP Primary Care Provider [phone] Reason for Visit * Reason Comments Med Refill Encounter Details Date Type Department Care Team ([facility] st Contact Info) Description 12/30/2024 Refill [facility] PEDS [address] [place] [address] Mitzi Duffy FNP [address] [place] [address] Sjogren's syndrome, with unspecified organ involvement (CMS/HCC) [...] Description 03/16/2025 11:[address] [facility] [address] [place] [phone] Karla Cazares NP [address] [place], [place] 03/16/2025 12:30 PM EDT Office Visit [facility] [address] [place] [phone] Kareen Gomes LLD [address] [place], [place] 06/24/2025 2:20 PM EST Office Visit [facility] [address] [place] [phone] Karla Cazares NP [address] [place], [place] [phone] documented as of this encounter Visit Diagnoses Diagnosis Sjogren's syndrome, with unspecified organ involvement (CMS/HCC) documented in this encounter Additional Health Concerns Assessment Noted Time PHQ-9 Depression Total Score: 15 025 3:36 PM EDT documented as of this encounter Care Teams Hebrew Cantor Relationship Specialty Start Date End Date Karla Cazares NP [address] [place] [address] PCP - General Family Medicine 11/16/24 Tre King MD [address] [place] [address] [place] [address] Obstetrics and Gynecology 04/25/24 documented as of this encounter
--- OUTSIDE RECORDS SUMMARY | 2025-03-10 16:24 | XMS_ITS | Encounter Summary ---
Author Organization [employer] Address [address] [place] [address] 7 [place] [address] Care Team Providers Care Major General Name Role Phone Tre King MD Unavailable Karla Cazares NP Primary Care Provider [phone] Encounter Details Date Type Department Care Team ([facility] st Contact Info) Description 03/07/2025 Refill [facility] [address] [place] [phone] Karla Cazares NP [address] [place] [address] Seasonal allergies; Chronic constipation; Gastroesophageal reflux disease, unspecified whether esophagitis present; Urinary, incontinence, stress female; Other specified hypothyroidism Social History Tobacco Use Types Packs/Day Years [...] encounter Miscellaneous Notes * Telephone Encounter - Claire Crawford LPN - 03/07/2025 3:43 PM EDT PCP: Karla Cazares NP Last in-person office visit: 02/21/2025 Karla Cazares NP PDMP last fill: 02/16/2025 Refill due: 03/18/2025 Last contract date: No scanned or signed documents on file Last tox screen date: No results found for: AMPHETAMINES , BARBITURATES , BENZODIAZEPI , BUPRENORPHIN , COCAINE , FENTANYL , HEROINMETAB , MARIJUANA , MDMA , MEPROBAMATE , METHADONE , NICOTINEMET , OPIATES , PHENCYCLIDIN , TAPENTADOL , TRAMADOL , ZOLPIDEM Assessment: [x] Nursing protocol passed [] Contract due [] Toxicology due [] Appointment due [] PDMP red flags [] Care plan adjustment needed Plan: [x] Please approve refill for 30 days [] Appointment with nursing: [] Appointment with Karla Cazares NP: Future Appointments Date Time Provider Department Center 03/16/2025 11:20 AM JOANN Packer [facility] 03/16/2025 12:30 PM BUTCH Ochoa [facility] 06/24/2025 2:20 PM Karla Cazares NP [facility] Comments: * Telephone Encounter - Deann Lamb MA - 03/07/2025 3:36 PM EDT PCP: Karla Cazares NP Last in-person office visit: 02/21/2025 Karla Cazares NP Lab Results Component Value Date BUN 17 02/25/2025 CREATININE 1.20 (H) 02/25/2025 EGFR 54 (L) 02/25/2025 HGBA1C 6.0 (H) 12/28/2024 K 3.8 02/25/2025 TSH 1.35 02/25/2025 Assessment: [] Protocol passed [] Lab due [] Appointment due Plan: [] Please refill for 30 days [] Lab [] BMP [] TSH [] A1C [] Appointment due: Future Appointments Date Time Provider Department Center 03/16/2025 11:20 AM JOANN Packer [facility] 03/16/2025 12:30 PM BUTCH O[facility]ao [facility] 06/24/2025 2:20 PM Karla Cazares NP [facility] Comments: * Telephone Encounter - Zandra Emery - 03/07/2025 9:42 AM EDT LMTCB to discuss * Telephone Encounter - Yeni Hernandez - 03/07/2025 8:57 AM EDT Patient is requesting a refill on all of her medications but she is also requesting we raise her dosage for levothyroxine as she states she still feels tired during the day documented in this encounter Plan of Treatment Upcoming Encounters Date Type Department Care Team (Late st Contact Info) Description 03/16/2025 11:20 AM EDT Telemedicine [facility] [address] [place] [phone] Karla Cazares NP [address] [place] [address] 03/16/2025 12:30 PM EDT Office Visit [facility] [address] [place] [phone] Kareen Gomes LLD [address] [place] [address] 06/24/2025 2:20 PM EST Office Visit [facility] [address] [place] [phone] Karla Cazares NP [address] [place] [address] documented as of this encounter Visit Diagnoses Diagnosis Seasonal allergies Allergic rhinitis, cause unspecified Chronic constipation Unspecified constipation Gastroesophageal reflux disease, unspecified whether esophagitis present Urinary, incontinence, stress female Female stress incontinence Other specified hypothyroidism documented in this encounter Additional Health Concerns Assessment Noted Time PHQ-9 Depression Total Score: 15 07/07/2 025 3:36 PM EDT documented as of this encounter Care Teams Major General Relationship Specialty Start Date End Date Karla Cazares NP [address] [place] [address] PCP - General Family Medicine 11/16/24 Tre King MD [address] [place] [phone] Obstetrics and Gynecology 04/25/24 documented as of this encounter
--- OUTSIDE RECORDS SUMMARY | 2025-03-10 16:24 | XMS_ITS | Encounter Summary ---
Author Organization [employer] Address [address] [place] [address] 7 [place] [address] Care Team Providers Care Condenser Cleaner Name Role Phone Tre King MD Unavailable Karla Cazares NP Primary Care Provider [phone] Encounter Details Date Type Department Care Team ([facility] [address] Contact Info) Description 12/28/2024 Telephone [facility] [address] [place] [address] Karla Cazares NP [address] [place] [address] Social History Tobacco Use Types Packs/Day Years [...] Faxed last office note over to the [facility] with [facility]. . * Telephone Encounter - Yeni Hernandez - 12/28/2024 10:09 AM EDT Patient is requesting after office notes from physical are done today please send them to the [facility] in [facility] documented in this encounter Plan of Treatment Upcoming Encounters Date Type Department Care Team (Late st Contact Info) Description 03/16/2025 11:20 AM EDT Telemedicine [address] [phone] Karla Cazares NP [address] [place] [address] 03/16/2025 12:30 PM EDT Office Visit [facility] [address] [place] [phone] Kareen Gomes LLD [address] [place] [address] 06/24/2025 2:20 PM EST Office Visit [address] [phone] Karla Cazares NP [address] [place] [address] documented as of this encounter Visit Diagnoses Not on filedocumented in this encounter Additional Health Concerns Assessment Noted Time PHQ-9 Depression Total Score: 15 12/13/ 025 3:36 PM EDT documented as of this encounter Care Teams Condenser Cleaner Relationship Specialty Start Date End Date Karla Cazares NP [address] [place] [address] PCP - General Family Medicine 11/16/24 Tre King MD [address] [place] [address] Obstetrics and Gynecology 04/25/24 documented as of this encounter
--- OUTSIDE RECORDS SUMMARY | 2025-03-10 16:24 | XMS_ITS | Encounter Summary ---
Author Organization [employer] Address [address] 7t [place] [address] Care Team Providers Care English Horn Player Name Role Phone Tre King MD Unavailable Karla Cazares NP Primary Care Provider [phone] Encounter Details Date Type Department Care Team ([facility] st Contact Info) Description 01/12/[address] [place] [address] Karla Cazares NP [address] [place] [address] Social History Tobacco Use Types Packs/Day Years [...] Please call back and advise. Call back [phone] documented in this encounter Plan of Treatment Upcoming Encounters Date Type Department Care Team (Late st Contact Info) Description 03/16/2025 11:20 AM EDT Telemedicine [address] [phone] Karla Cazares NP [address] [place] [address] 03/16/2025 12:30 PM EDT Office Visit [facility] [address] [place] [phone] Kareen Gomes LLD [address] [place] [address] 06/24/2025 2:20 PM EST Office Visit [address] [phone] Karla Cazares NP [address] [place] [address] documented as of this encounter Visit Diagnoses Not on filedocumented in this encounter Additional Health Concerns Assessment Noted Time PHQ-9 Depression Total Score: 15 12/13/ 025 3:36 PM EDT documented as of this encounter Care Teams English Horn Player Relationship Specialty Start Date End Date Karla Cazares NP [address] [place] [address] PCP - General Family Medicine 11/16/24 Tre King MD [address] [place] [address] [address] [place] [address] Obstetrics and Gynecology 04/25/24 documented as of this encounter
--- OUTSIDE RECORDS SUMMARY | 2025-03-10 16:24 | XMS_ITS | Data Portability ---
Author Organization [place] [facility] Address [address] [place] [phone] Assessment Encounter Date Assessment Date Assessment LastModified by Organization Details LastModified Time 01/24/2025 01/24/2025 54 year old female, with a history of Sjogren's disease and septoplasty [place] [address] Trujillo, presents for reevaluation of chronic sinusitis. Anterior rhinoscopy and nasal endoscopy were unremarkable with no evidence of purulence or polyps. The patient's history and symptoms seem most consistent with migraine variant, especially given her history of migraine headaches. We discussed the pathophysiology of migraine and how it can mask as allergy or sinus symptoms such as facial pressure or pain, nasal congestion, rhinorrhea, postnasal drip, hyposmia, and ear fullness. I provided the patient with the Migraine More than a Headache booklet which lists many environmental and dietary triggers that can lead to migraines, as well as ways to manage these symptoms. I also recommend dietary supplements such as magnesium, Vitamin B2, and feverfew (or Migranol which contains a combination of all three) to help control migrainous phenomena. Additionally, the patient was encouraged to keep a migraine diary to assist with identifying and eliminating potential triggers. If symptoms persist or worsen despite these measures, we may consider a referral to neurology for further workup and intervention. Otherwise, follow up as needed. The patient understands and agrees with this plan. All questions were answered. [email or web address] Not available 01/24/2025 18:28:47 Plan of Treatment Reminders Order Date Submit Date Provider Last Modified By Organization Details Last Modified Time Details Appointments None record ed. Lab None record ed. Referral None record ed. Procedures None record ed. Surgeries None record ed. Imaging None record ed. Medication Orders None record ed. Patient TargetsNo targets recorded. Patient InstructionsNo instructions recorded. Reason for Referral None Reported. Problems Name Problem SNOMED Code Status Onset Date Resolution Date Notes Provider Name and Address Organization Details Recorded Time Impacted cerumen of bilateral ears 90380376200 42445 Active 2020 Impacted cerumen, bilateral ; Note: Date Diagnosed : 1 12:08 PM (H61.23) Not Available Formerly [facility] 4 03:08:27 Abnormal sensation 157170965 Active 2024 PRETTY PERKINS [address], [place], [address] , [facility] - [facility] 18:26:17 Migraine with aura 3791591 Active 2024 PRETTY PERKINS [address], [place], [phone] , [place] [facility] 5 18:26:41 Sense of smell impaired 70909369 Active 2024 PRETTY PERKINS [address], [place], [address] , [place] [facility] 5 18:27:25 Allergic rhinitis caused by pollen 91284840 Active 2024 PRETTY PERKINS [address], [place], [address] , [facility] - [facility] 5 18:27:33 Mucous membrane dryness 509034946 Active 2024 PRETTY PERKINS [address], [place], [address] , [facility] - [facility] 18:28:21 Notes:Sicca syndrome with ke ratoconjunctivitis Note: Date Diagnosed: 03/20/2023 2:35 PM (M35.01) Note: Date Diagnosed: 03/20/2023 2:35 PM (M35.01) Problem Notes None recorded. Procedures Surgical History Date Name Laterality Status Provider Name and Address Organization Details Recorded Time 01/24/2025 NasalEndos copy_DP completed PRETTY PERKINS [address] [address], [place], [address], [facility] - [facility] 01/24/2025 13:38:57 Imaging Results None recorded. Procedure Notes None recorded. Medical Equipment None Reported. Allergies Allergen ID Allergen Name Allergen Category Reaction Reaction Severity Criticality Documentation Date Start Date Code Code System Note Provider Name and Address Organization Details Recorded Time 731221 Substance with sulfonami de structure and antibacte rial mechanism of action (substanc e) medicatio n other Not available Not available 10/21/2023 10365 8003 SNOMED React ion: Unkno wn; Not Available [employer] 01:06:51 Medications Name Sig Start Date Stop Date Status Note LastModified by Organization Details LastModified Time trazodone 50 mg tablet 01/24 completed Medicati on ID: [id number] B rand Name: trazodon e Send Method: E-Prescr ibed Sub s Allowed: subs OK Medic ationGen ericName : trazodon e Not Available Not Available Not Available cetirizin e 10 mg tablet TAKE 1 TABLET BY MOUTH EVERY DAY active Not Available Not Available No t Available Zyprexa 10 mg tablet 01/24 completed Medicati on ID: [id number] B rand Name: Zyprexa Send Method: E-Prescr ibed Sub s Allowed: subs OK Medic ationGen ericName : Zyprexa Not Available Not Available Not Available polyvinyl alcohol 1.4 % eye drops PLACE 1 DROP IN EACH EYE 4-6 TIMES PER DAY. MAY USE UP TO EVERY HOUR NEEDED FOR comfort active Not Available Not Available No t Available famotidin e 40 mg tablet active Not Available Not Available Not Available Medrol (Ameya) 4 mg tablets in a dose pack Take by mouth 01/24 completed Medicati on ID: [id number] B rand Name: Medrol (Ameya) Se nd Method: E-Prescr ibed Sub s Allowed: subs OK Speci al Instruct ion: take as instruct ed Medic ationGen ericName : Medrol (Ameya) Not Available Not Available Not Available Tylenol Arthritis Pain 650 mg tablet,ex tended release 01/24 completed Medicati on ID: [id number] B rand Name: Tylenol Arthriti s Pain Sen d Method: E-Prescr ibed Sub s Allowed: subs OK Medic ationGen ericName : Tylenol Arthriti s Pain Not Available Not Available Not Available oxcarbaze pine 300 mg tablet 01/24 completed Not Available Not Available Not Available levothyro xine 75 mcg tablet active Not Available Not Available Not Available amitripty line 25 mg tablet active Medicati on ID: [id number] B rand Name: amitript yline Se nd Method: E-Prescr ibed Sub s Allowed: subs OK Medic ationGen ericName : amitript yline Not Available Not Available Not Available cephalexi n 500 mg capsule TAKE 1 CAPSULE BY MOUTH THREE TIMES DAILY FOR 10 DAYS 01/24 completed Not Available Not Available Not Available erythromy ranjeet 5 mg/gram (0.5 %) eye ointment APPLY 1/2 INCH RIBBON TO AFFECTED EYE 4 TIMES A DAY FOR 7 DAYS 01/24 completed Not Available Not Available Not Available mirtazapi ne 15 mg tablet active Medicati on ID: [id number] B rand Name: mirtazap ine Send Method: E-Prescr ibed Sub s Allowed: subs OK Speci al Instruct ion: TAKE 1 TABLET BY ORAL ROUTE 1 TIME PER DAY BEFORE BEDTIME- NEW DOSE Med icationG enericNa me: mirtazap ine Not Available Not Available Not Available fluticaso ne 100 mcg-salme terol 50 mcg/dose blistr powdr for inhalatio n Inhale 1 puff twice a day by inhalati on route. active Not Available Not Available No t Available polyethyl sakina glycol 3350 17 gram/dose oral powder active Not Available Not Available Not Available hydroxyzi ne pamoate 25 mg capsule active Medicati on ID: [id number] B rand Name: hydroxyz ine pamoate Send Method: E-Prescr ibed Sub s Allowed: subs OK Speci al Instruct ion: TAKE 1-2 CAPSULE TWICE DAILY NEEDED FOR ANXIETY AND AT AT BEDTIME FOR SLEEP Me dication GenericN robert: hydroxyz ine pamoate Not Available Not Available Not Available Vitamin D3 25 mcg (1,000 unit) tablet 01/24 completed Medicati on ID: [id number] B rand Name: Vitamin D3 Send Method: E-Prescr ibed Sub s Allowed: subs OK Medic ationGen ericName : Vitamin D3 Not Available Not Available Not Available Vitals Date Recorded Body height Body mass index (BMI) Body weight Provider Name and Address Organization Details Last Updated DateTime 01/24/2025 162.56 cm 41.2 kg/m2 633007.17 g Deann Faustin [place] [facility] 01/24/2025 12:45:53 Social History None recorded. Functional Status None recorded. Mental Status None recorded. Family History Nothing Reported. Medical History No medical history recorded. Gynecological HistoryNo gynecological history recorded. Obstetrics History GPAL:G 0 P 0 0 0 0 Past Encounters Encounter ID Performer Location Encounter Start Date Encounter Closed Date Diagnosis/Indication Diagnosis SNOMED-CT Code Diagnosis ICD10 Code Diagnosis IMO Codes Diagnosis Note [id number] PRETTY PERKINS [facility] [address] [address] 01/24/2025 12:37:51 01/24/2025 13:34:41 Abnormal sensation 158288266 R44.8 29847187 Migraine with aura 34139 06 G43.422 3246730 Sense of s brooke impaired 83411994 R43.8 86392 Allergic r hinitis caused by pollen 46954614 J30.1 60539019 Mucous mem brane dryness 900157216 M35.00 0532223113 Health Concerns Section Related Observation LastModified by Organization Detai ls LastModified Time None Recorded Concern Status LastModified by Organization Details LastModified Time None Recorded Advance Directives Directive None Recorded Payers Insurance Date Sequence Insurance Name Policy Number Policy Hanson Covered Member ID Hanson Member ID Guarantor Name 02/08/2025 1 [place]: [facility] Nova Jimenez [id number] Nova Jimenez Notes Date Note Type Note Provider Name and Address Organization Details Recorded Time 01/24/2025 text/html ROS as noted in the HPI 54 year old female, with a history of Sjogren's disease and septoplasty performed [place] [address] Trujillo, presents for reevaluation of chronic sinusitis. Patient was last seen by Dr. Grant in March 2023 for the same concern. She reports 10 sinus infections this year alone, however she was never treated with antibiotics. Symptoms typically consist of pressure in the forehead and behind the eyes. Sense of smell is not great. Denies fever and purulent nasal drainage. Patient had skin prick testing done through an outside facility a few years which showed positive reactions to trees, weeds, and grasses. She was recommended Flonase and Zyrtec which she takes daily with some improvement. Patient also has a history of daily migraines, accompanied by scotomas and photophobia. She does not see a neurologist and takes herbal supplements for management. Not followed by rheumatology for her Sjogren's disease. LELIA GUZMAN MD [address] [place] [address], [phone], [facility] - [facility] 01/24/2025 20:50:46 OBGyn Episode No OBEpisode recorded.
--- OUTSIDE RECORDS SUMMARY | 2025-03-10 16:24 | XMS_ITS | Encounter Summary ---
Author Organization [employer] Address [address] [place] [address] 7t [place] [address] Care Team Providers Care Director Of Catering Sales Name Role Phone Mitzi Duffy Primary Care Provider [phone] Tre King MD Unavailable Karla Cazares NP Primary Care Provider [phone] Reason for Visit * Reason Onset Date Comments Letter for Medication 02/12/2023 Encounter Details Date Type Department Care Team (Late st Contact Info) Description 02/12/2023 Telephone [facility] [address] [place] [address] Mitzi Duffy FNP [address] [place] [address] Letter for Medication Social History Tobacco Use [...] - 02/12/2023 4:25 PM EDT T/C to [phone] for below message, No answer. Not able to LVM. * Telephone Encounter - Sierra Reynoso - 02/12/2023 4:00 PM EDT Tc from lakshmi nurse from day program requesting a verbal order until PCP signs and fax back order. Please contact kay at [phone] * Telephone Encounter - Jeanette Brandt RN - 02/12/2023 3:40 PM EDT T/C to [phone] for below message, Nurse was informed that generally this type of documents goes to medical records and then they brings to provider. Nurse states she already spoke with medical records and they tole her it might take 7-10 days, but pt. Had eye surgery and Nurse is looking for KM. Woodworking Belt Sander RN called to medical records, spoke with [...] 24 hr . Please call to clarify [phone]. * Telephone Encounter - Joseph Kimbrough - 02/12/2023 1:47 PM EDT Tc from pt requesting a letter from provider in regards to medication for dextran 70-hypromellose (artificial tears) 0.1-0.3 % ophthalmic solution. Pt states that letter needs to provide of how medication needs to be administer and dosage as well. Pt stated that Day program ( [facility] ) that they have sent a request over. Please contact pt at [phone] documented in this encounter Plan of Treatment Upcoming Encounters Date Type Department Care Team (Late st Contact Info) Description 03/16/2025 11:20 AM EDT Telemedicine [address] [phone] Karla Cazares NP [address] [place] [address] 03/16/2025 12:30 PM EDT Office Visit [facility] [address] [place] [phone] Kareen oGmes LLD [address] [place] [address] 06/24/2025 2:20 PM EST Office Visit [address] [phone] Karla Cazares NP [address] [place] [address] documented as of this encounter Visit Diagnoses Not on filedocumented in this encounter Additional Health Concerns Assessment Noted Time PHQ-9 Depression Total Score: 0 06/04/20 22 3:05 PM EST documented as of this encounter Care Teams Director Of Catering Sales Relationship Specialty Start Date End Date Mitzi Duffy FNP [address] [place] [address] PCP - General Family Medicine 02/05/22 11/15/24 Karla Cazares NP [address] [place] [address] PCP - General Family Medicine 11/16/24 Tre King MD [address] [place] [address] Obstetrics and Gynecology 04/25/24 documented as of this encounter
--- OUTSIDE RECORDS SUMMARY | 2025-03-10 16:24 | XMS_ITS | Encounter Summary ---
Author Organization [employer] Address [address] 7[address] [place] [address] Care Team Providers Care Client Administrator Name Role Phone Tre King MD Unavailable Karla Cazares NP Primary Care Provider [phone] Encounter Details Date Type Department Care Team (Latest Contact Info) Description 03/09/2025 Travel Social History Tobacco Use Types Packs/Day Years [...] Info) Description 03/16/2025 11:20 AM EDT Telemedicine [facility] [address] [place] [phone] Karla Cazares NP [address] [place] [address] 03/16/2025 12:30 PM EDT Office Visit [facility] [address] [place] [address] Kareen Gomes LLD [address] [place] [address] 06/24/2025 2:20 PM EST Office Visit [facility] [address] [place] [phone] Karla Cazares NP [address] [place] [address] documented as of this encounter Visit Diagnoses Not on filedocumented in this encounter Additional Health Concerns Assessment Noted Time PHQ-9 Depression Total Score: 15 025 3:36 PM EDT documented as of this encounter Care Teams Client Administrator Relationship Specialty Start Date End Date Karla Cazares NP [address] [place] [address] PCP - General Family Medicine 11/16/24 Tre King MD [address] [place] [address] [place] [address] Obstetrics and Gynecology 04/25/24 documented as of this encounter
--- OUTSIDE RECORDS SUMMARY | 2025-03-10 16:24 | XMS_ITS | Encounter Summary ---
Author Organization [employer] Address [address] [facility] 7t [place] [address] Care Team Providers Care Garage Mechanic Name Role Phone Tre King MD Unavailable Karla Cazares NP Primary Care Provider [phone] Reason for Visit * Reason Comments Med Refill Encounter Details Date Type Department Care Team ([facility] st Contact Info) Description 02/23/2025 Refill [facility] [address] [place] [address] Mitzi Duffy FNP [address] [place] [address] Other specified hypothyroidism Social History Tobacco Use [...] Info) Description 03/16/2025 11:20 AM EDT Telemedicine [facility] [address] [place] [phone] Karla Cazares NP [address] [place] [address] 03/16/2025 12:30 PM EDT Office Visit [facility] [address] [place] [phone] Mireya KareenBUTCH [address] [place], [place] [phone] 06/24/2025 2:20 PM EST Office Visit [facility] [address] [place] [phone] Karla Cazares NP [address] [place] [address] documented as of this encounter Visit Diagnoses Diagnosis Other specified hypothyroidism documented in this encounter Additional Health Concerns Assessment Noted Time PHQ-9 Depression Total Score: 15 025 3:36 PM EDT documented as of this encounter Care Teams Garage Mechanic Relationship Specialty Start Date End Date Karla Cazares NP [address] [place] [address] PCP - General Family Medicine 11/16/24 Tre King MD [address] [place] [address] Obstetrics and Gynecology 04/25/24 documented as of this encounter
--- OUTSIDE RECORDS SUMMARY | 2025-03-10 16:24 | XMS_ITS | Encounter Summary ---
Author Organization [employer] Address [address] [place] [address] 7 [place] [address] Care Team Providers Care Research Staff Member Name Role Phone Tre King MD Unavailable Karla Cazares NP Primary Care Provider Encounter Details Date Type Department Care Team ([facility] Contact Info) Description 12/28/2024 Orders Only [facility] [address] [place] [phone] Adelso Iverson AGNP [address] [place] [address] Social History Tobacco Use Types Packs/Day Years [...] Info) Description 03/16/2025 11:20 AM EDT Telemedicine [address] [phone] Karla Cazares NP [address] [place] [address] 03/16/2025 12:30 PM EDT Office Visit [facility] [address] [place] [phone] Kareen Gomes, LLD [address] [place] [address] 06/24/2025 2:20 PM EST Office Visit [address] [phone] Karla Cazares NP [address] [place] [address] documented as of this encounter Visit Diagnoses Not on filedocumented in this encounter Additional Health Concerns Assessment Noted Time PHQ-9 Depression Total Score: 15 025 3:36 PM EDT documented as of this encounter Care Teams Research Staff Member Relationship Specialty Start Date End Date Karla Cazares NP [address] [place] [address] PCP - General Family Medicine 11/16/24 rTe King MD [address] [place] [address] Obstetrics and Gynecology 04/25/24 documented as of this encounter
--- OUTSIDE RECORDS SUMMARY | 2025-03-10 16:24 | XMS_ITS | Encounter Summary ---
Author Organization [employer] Address [address] [place] [address] 7 [place] [address] Care Team Providers Care Food And Nutrition Professor Name Role Phone Tre King MD Unavailable Karla Cazares NP Primary Care Provider [phone] Encounter Details Date Type Department Care Team ([facility] st Contact Info) Description 02/23/2025 Results Follow-Up [facility] [address] [place] [phone] Karla Cazares NP [address] [place] [address] SureSwab Advanced Vaginitis Plus, TMA, Urinalysis, Complete, with Reflex to Culture, Reflex Urine Culture, Culture, Urine, Routine Social History Tobacco Use Types Packs/Day Years [...] Info) Description 03/16/2025 11:20 AM EDT Telemedicine [address] [phone] Karla Cazares NP [address] [place] [address] 03/16/2025 12:30 PM EDT Office Visit [facility] [address] [place] [address] [phone] Mireya Kareen, LLD [address] [place] [address] [phone] 06/24/2025 2:20 PM EST Office Visit [facility] [address] [place] [phone] Karla Cazares NP [address] [place] [address] documented as of this encounter Visit Diagnoses Not on filedocumented in this encounter Additional Health Concerns Assessment Noted Time PHQ-9 Depression Total Score: 15 025 3:36 PM EDT documented as of this encounter Care Teams Food And Nutrition Professor Relationship Specialty Start Date End Date Karla Cazares NP [address] [place] [address] PCP - General Family Medicine 11/16/24 Tre King MD [address] [place] [address] [place] [address] Obstetrics and Gynecology 04/25/24 documented as of this encounter
--- OUTSIDE RECORDS SUMMARY | 2025-03-10 16:24 | XMS_ITS | Encounter Summary ---
Author Organization [employer] Address [address] [facility] 7t [place] [address] Care Team Providers Care Worksite Wellness Practitioner Name Role Phone Tre King MD Unavailable Karla Cazares NP Primary Care Provider [phone] Reason for Visit * Reason Comments Med Refill Encounter Details Date Type Department Care Team ([facility] st Contact Info) Description 02/25/2025 Refill [facility] [address] [place] [address] Mitzi Duffy FNP [address] [place] [address] Social History Tobacco Use Types Packs/Day Years [...] Upcoming Encounters Date Type Department Care Team ([facility] st Contact Info) Description 03/16/2025 11:20 AM EDT Telemedicine [facility] [address] [place] [phone] Karla Cazares NP [address] [place] [address] 03/16/2025 12:30 PM EDT Office Visit [facility] [address] [place] [phone] Kareen Gomes LLD [address] [place] [address] 06/24/2025 2:20 PM EST Office Visit [facility] [address] [place] [address] [phone] Karla Cazares NP [address] [place] [address] documented as of this encounter Visit Diagnoses Not on filedocumented in this encounter Additional Health Concerns Assessment Noted Time PHQ-9 Depression Total Score: 15 025 3:36 PM EDT documented as of this encounter Care Teams Worksite Wellness Practitioner Relationship Specialty Start Date End Date Karla Cazares NP [address] [place] [phone] PCP - General Family Medicine 11/16/24 Tre King MD [address] [place] [address] Obstetrics and Gynecology 04/25/24 documented as of this encounter
--- OUTSIDE RECORDS SUMMARY | 2025-03-10 16:24 | XMS_ITS | Encounter Summary ---
Author Organization [employer] Address [address] [place] [address] 7 [place] [address] Care Team Providers Care Branch Account Manager Name Role Phone Tre King MD Unavailable Karla Cazares NP Primary Care Provider [phone] Encounter Details Date Type Department Care Team (Latest Contact Info) Description 02/28/2025 Results Follow-Up [facility] [address] [place] [phone] Karla Cazares NP [address] [place] [address] TSH with Reflex to Free T4, Comprehensive Metabolic Panel Social History Tobacco Use Types Packs/Day Years [...] Upcoming Encounters Date Type Department Care Team ([facility] st Contact Info) Description 03/16/2025 11:20 AM EDT Telemedicine [facility] [address] [place] [phone] Karla Cazares NP [address] [place] [address] 03/16/2025 12:30 PM EDT Office Visit [facility] [address] [place] [phone] Mireya Kareen LLD [address] [place], [place] [phone] 06/24/2025 2:20 PM EST Office Visit [facility] [address] [place] [phone] Karla Cazares NP [address] [place] [address] documented as of this encounter Visit Diagnoses Not on filedocumented in this encounter Additional Health Concerns Assessment Noted Time PHQ-9 Depression Total Score: 15 025 3:36 PM EDT documented as of this encounter Care Teams Branch Account Manager Relationship Specialty Start Date End Date Karla Cazares NP [address] [place] [phone] PCP - General Family Medicine 11/16/24 Tre King MD [address] [place] [address] Obstetrics and Gynecology 04/25/24 documented as of this encounter
--- OUTSIDE RECORDS SUMMARY | 2025-03-10 16:25 | XMS_ITS | Encounter Summary ---
Author Organization [employer] Address [address] [place] [address] 7 [place] [address] Care Team Providers Care Diesel Dinkey Engineer Name Role Phone Tre King MD Unavailable Karla Cazares NP Primary Care Provider [phone] Encounter Details Date Type Department Care Team ([facility] Contact Info) Description 02/04/2025 Telephone [facility] [address] [place] [phone] Karla Cazares NP [address] [place] [address] Social History Tobacco Use Types Packs/Day Years [...] encounter Miscellaneous Notes * Telephone Encounter - Aida Stiles [place] - 02/08/2025 2:00 PM EDT Faxed to [place] * Telephone Encounter - Michelle Lambert - 02/04/2025 10:22 AM EDT Pt. Called and asked for an updated medication list be sent to the [facility] at [address] . Call back # [phone] documented in this encounter Plan of Treatment Upcoming Encounters Date Type Department Care Team (Late st Contact Info) Description 03/16/2025 11:20 AM EDT Telemedicine [facility] [address] [place] [address] [phone] Karla Cazares NP [address] [place] [phone] 03/16/2025 12:30 PM EDT Office Visit [facility] [address] [place] [address] [phone] Kareen Gomes LLD [address] [place] [address] 06/24/2025 2:20 PM EST Office Visit [address] [phone] Karla Cazares NP [address] [place] [phone] documented as of this encounter Visit Diagnoses Not on filedocumented in this encounter Additional Health Concerns Assessment Noted Time PHQ-9 Depression Total Score: 15 025 3:36 PM EDT documented as of this encounter Care Teams Diesel Dinkey Engineer Relationship Specialty Start Date End Date Karla Cazares NP [address] [place] [address] PCP - General Family Medicine 11/16/24 Tre King MD [address] [place] [address] [place] [address] Obstetrics and Gynecology 04/25/24 documented as of this encounter
--- OUTSIDE RECORDS SUMMARY | 2025-03-10 16:25 | XMS_ITS | Encounter Summary ---
Author Organization [employer] Address [address] [facility] [address] 7[address] [place] [address] Care Team Providers Care Research Professor Name Role Phone Tre King MD Unavailable Karla Cazares NP Primary Care Provider [phone] Encounter Details Date Type Department Care Team ([facility] st Contact Info) Description 01/21/2025 Results Follow-Up [address] [phone] Gina Mora NP [address] [place] [address] POCT urinalysis dipstick manually resulted, Herpes Simplex [...] Info) Description 03/16/2025 11:20 AM EDT Telemedicine [facility] [address] [place] [phone] Karla Cazares NP [address] [place] [address] 03/16/2025 12:30 PM EDT Office Visit [facility] [address] [place] [phone] Kareen Gomes, LLD [address] [place] [address] [phone] 06/24/2025 2:20 PM EST Office Visit [address] [phone] Karla Cazares NP [address] [place] [address] [phone] documented as of this encounter Visit Diagnoses Not on filedocumented in this encounter Additional Health Concerns Assessment Noted Time PHQ-9 Depression Total Score: 15 025 3:36 PM EDT documented as of this encounter Care Teams Research Professor Relationship Specialty Start Date End Date Karla Cazares NP [address] [place] [address] PCP - General Family Medicine 11/16/24 Tre King MD [address] [place] [address] Obstetrics and Gynecology 04/25/24 documented as of this encounter
--- OUTSIDE RECORDS SUMMARY | 2025-03-10 16:25 | XMS_ITS | Clinical Summary ---
Author Organization [employer] Address [address] [place] [address] 7 [place] [address] Care Team Providers Care Hose Inspector Name Role Phone Tre King MD Unavailable Karla Cazares NP Primary Care Provider [phone] Allergies Active Allergy Reactions Criticality Noted Date Comments Egg-Derived Products High 08/03/2019 Other reaction(s): GI Problems Lactose Intolerance (Gi) 06/04/2022 Sulfa Antibiotics Unknown 09/07/2013 Sulfacetamide Sodium-Sulfur Unknown 12/28/19 23 Medications * This document contains information received from the source organization and may not represent a complete record from that organization. Mouthwashes (Biotene Dry Mouth) liquidIndications :Sjogren's syndrome, with unspecified organ involvement (CMS/HCC) TAKE 1 SPRAY BY MOUTH IF NEEDED (DRY MOUTH). 237 mL 10 024 Active fluticasone (Flonase) 50 MCG/ACT nasal sprayIndications: Seasonal allergies Administer 1-2 sprays into each nostril if needed each day for rhinitis or allergies. Shake gently. Before first use, prime pump. After use, clean tip and replace cap. 16 g 3 025 2025 Active mirabegron ER (Myrbetriq) 50 MG 24 hr tabletIndications :Urinary, incontinence, stress female Take 1 tablet (50 mg) by mouth Once per day. Do not crush, chew, or split. 90 tablet 1 025 2025 Active docusate sodium (Colace) 100 MG capsuleIndication s:Chronic constipation Take 1 capsule (100 mg) by mouth Once daily as needed for constipation. 90 capsule 3 025 Active polyethylene glycol, PEG, 3350 (MiraLax) 17 GM/SCOOP powderIndications :Chronic constipation Take 17 g by mouth in the morning. Dissolve in 4-8 oz of liquid. 527 g 3 025 Active famotidine (Pepcid) 40 MG tabletIndications :Gastroesophageal reflux disease, unspecified whether esophagitis present Take 1 tablet (40 mg) by mouth if needed in the morning and at bedtime for heartburn or indigestion. 180 tablet 3 025 Active propranolol (Inderal) 20 MG tablet Take 20 mg by mouth in the morning and 20 mg in the evening. Active zaleplon (Sonata) 10 MG capsule Take 10 mg by mouth at bedtime. Active cetirizine (ZyrTEC) 10 MG tabletIndications :Seasonal allergies Take 1 tablet (10 mg) by mouth Once per day. 90 tablet 3 025 2025 Active levothyroxine (Levoxyl) 75 MCG tabletIndications :Other specified hypothyroidism TAKE 1 TABLET BY MOUTH BEFORE BREAKFAST 90 tablet 1 Active cevimeline (Evoxac) 30 MG capsule Take 1 capsule (30 mg) by mouth 3 times daily. 270 capsule 3 025 2025 Active hydrOXYzine pamoate (Vistaril) 25 MG capsule Take 1 capsule by mouth every 12 (twelve) hours. 2024 Discontinued hydrocortisone 2.5 % creamIndications: Eczematous dermatitis of upper and lower eyelids of both eyes Apply topically 2 times daily. 3.5 g 023 2024 Discontinued cevimeline (Evoxac) 30 MG capsuleIndication s:Sjogren's syndrome, with unspecified organ involvement (CMS/HCC) Take 1 capsule (30 mg) by mouth if needed in the morning, at noon, and at bedtime (Dry Mouth). 90 capsule 3 025 2024 Discontinued levothyroxine (Levoxyl) 75 MCG tabletIndications :Other specified hypothyroidism TAKE 1 TABLET BY MOUTH BEFORE BREAKFAST 90 tablet 1 025 2024 Discontinued(R eorder (will not trigger notification to Pharmacy)) cetirizine (ZyrTEC) 10 MG tabletIndications :Seasonal allergies Take 1 tablet (10 mg) by mouth Once per day. 90 tablet 3 025 2024 Discontinued(R eorder (will not trigger notification to Pharmacy)) ARIPiprazole (Abilify) 20 MG tablet Take 20 mg by mouth at bedtime. 2024 Discontinued OLANZapine (ZyPREXA) 5 MG tablet Take 5 mg by mouth at bedtime. 2024 Discontinued propranolol (Inderal) 20 MG tablet Take 20 mg by mouth 3 times daily. 2024 Discontinued sertraline (Zoloft) 50 MG tablet Take 50 mg by mouth Once per day. 025 2024 Discontinued Kava, Piper methysticum, (KAVA KAVA PO) Take 500 mg by mouth at bedtime. 2024 Discontinued milk thistle 175 MG tablet Take 500 mg by mouth in the morning and 500 mg in the evening. 2024 Discontinued VALERIAN ROOT PO Take 445 mg by mouth if needed. 2024 Discontinued polyvinyl alcohol (Liquifilm Tears) 1.4 % ophthalmic solution Administer 1 drop into both eyes 4 times daily. 025 2024 Discontinued meloxicam (Mobic) 7.5 MG tabletIndications :Polyarthralgia Take 1-2 tablets (7.5-15 mg) by mouth Once daily as needed for moderate pain. 60 tablet 3 025 2024 Discontinued metroNIDAZOLE (Metrogel) 0.75 % vaginal gel Insert into the vagina at bedtime for 7 days. 70 g 025 2024 cevimeline (Evoxac) 30 MG capsule Take 30 mg by mouth 3 times daily. 2024 Discontinued Active Problems Problem Noted Date Diagnosed Date Herpes zoster without complication 12/28/2024 Urinary, incontinence, stress female 03/11/2024 Overview (04/25/2024): -Referred to Pelvic Floor physical therapy December 2023 -Plan to establish with Urologist in Apr 2024 for urinary incont and hematuria -Pharmacologic tx: hx of Sjogren's, avoid anticholinergic tx. Initiated Myrbetriq 25mg daily (Feb 2024) Assessment & Plan (02/21/2025 3:06 PM EDT): - double check urinalysis to rule out infection, send out as in house testing is not available Orders: Urinalysis, Complete, with Reflex to Culture; Future Assessment & Plan (04/25/2024 5:58 PM EST): -Well controlled with current regimen ASCUS with positive high risk HPV cervical 02/11 LGSIL of cervix of undetermined significance 10/2023 Abnormal uterine bleeding 12/29/2023 Assessment & Plan (01/30/2024 5:02 PM EDT): [place]ed [place] [facility] - Dr. King Endometrial biopsy negative 04/2021, indication: AUB September - October 2023: diagnostic hysteroscopy, D&C, polypectomy. Path: endometrium w/o atypia or carcinoma. Endometrial polyp Plan: IUD placement through [facility] for endometrial polyp, Nova reports currently waiting for when menses starts, although has not started menses since last procedure. Assessment & Plan (12/29/2023 6:59 PM EDT): Followed by [facility] [employer] - Dr. King Endometrial biopsy negative 04/2021, indication: AUB September - October 2023: diagnostic hysteroscopy, D&C, polypectomy. Path: endometrium w/o atypia or carcinoma. Endometrial polyp Plan: IUD placement December 2023 through [facility] [employer] [facility] for endometrial polyp Dysplasia of cervix, low grade (MADHAV 1) Overview (01/26/2024): Followed by Dr. King - [facility] 03/29 Cervical biopsy MADHAV 1 07/22/23: Pap [...] PTSD, Bipolar disorder. She is connected with [facility] for therapy and psychiatry services. Pt reports being on wait list for DBT with ER NURSE. Nova is going through a lot of stress lately associated with lack of trust with significant other. Discussed importance to verbalize her needs and establish limits in the relationship. clinician engaged patient with active, reflective listening and used open ended-questions to review for risk. Nova is connected with services. Provided coping strategies to use when feeling stressed out. Pt has information for [facility] program with [facility] and understands the importance of reaching out to others. Bipolar affective disorder, current episode mixe d ([facility]) 12/27/2022 Assessment & Plan (02/23/2024 2:43 PM EDT): She has increased anxiety with vaginal sxs, she wants to talk with counselor We'll call for addtl evaluation Patient is to fu with [facility] team for regular fu. Assessment & Plan (01/26/2024 1:58 PM EDT): PROGRESS NOTE: ID: Nova is a 53 y.o. White cis-female with previous documented hx of Depression, Anxiety, Bipolar Disorder, PTSD and Schizoaffective disorder. services including [facility] Psychotherapy psychopharmacology who presents for increase in [...] She is connected with OP services through [facility], will have appt with therapist next Friday. She was able to expressed her emotions and behaviors related to current event. PLAN: Continue with current services (defined as services in the past 12 months) Behavioral Health Integration Plan Patient Self Plan Patient to utilize skills provided in intervention , Patient to [facility] team as needed, Comply with medication , Patient to reach out to [facility] as needed, and Patient to follow-up with external team Chronic pain 12/27/2022 Chronic sinusitis 12/27/2022 Assessment & Plan (02/21/2025 3:06 PM EDT): - Chronic sinusitis with intermittent nasal congestion, managed with nasal saline and xylitol spray. - Continue nasal saline and xylitol spray as previously recommended. No surgical intervention required at this time. Follow up in 4 months. Assessment & Plan (12/20/2024 2:57 PM EDT): [...] syndrome with constipation 08/02 Assessment & Plan (02/21/2025 3:06 PM EDT): Symptoms improvement with Colace and Miralax, encouraged to continue Assessment & Plan (04/25/2024 5:57 PM EST): [...] daily -TSH WNL October 2021 Schizoaffective disorder ([facility]/HCC) 09/07/2013 Assessment & Plan (02/21/2025 3:06 PM EDT): - currently stable, seen by psychiatry, doing well on Abilify Assessment & Plan (12/20/2024 2:57 PM EDT): - stable and controlled - in supportive housing - no changes or concerns today Assessment & Plan (12/30/2022 7:05 PM EDT): -Followed by mental health team at [facility] -Continue with current med regimen: oxcarbazepine 150mg QAM and 300mg at bedtime olanzapine 10mg at bedtime Assessment & Plan (06/04/2022 6:45 PM EST): -Followed by mental health team at [facility] -Continue with current med regimen: -mirtazapine 15mg [...] use probiotics while taking abs. FU with [employer] Urinary tract infection with hematuria 02/12/2024 03/11/2024 [...] -LSIL/HPV+ Feb 2021, colposcopy 03/14/2021 -Followed at [facility], reports recent Pelvic US in Jul 2023, with plan for upcoming EMB through [facility]. Will request records from [facility]. Assessment & Plan (12/30/2022 7:03 PM EDT): -LSIL/HPV+ Feb 2021, colposcopy 03/14/2021 -Followed at [facility], reports last pap within the past year Assessment & Plan (06/04/2022 6:40 PM EST): -LSIL/HPV+ Feb 2021, colposcopy 03/14/2021 -Followed at [facility] Cervical high risk human pap illomavirus (HPV) DNA test positive 08/02/2016 12/29/2023 Depression 10/07/2012 03/08/2024 Encounters * This document contains information received from the source organization and may not represent a complete record from that organization. Date Type Department Care Team Description 03/09/2025 Travel 03/07/[address] [phone] Karla Cazares NP Seasonal allergies; Chronic constipation; Gastroesophageal reflux disease, unspecified whether esophagitis present; Urinary, incontinence, stress female; Other specified hypothyroidism 02/28/2025 Results Follow-Up [address] [phone] Karla Cazares NP TSH with Reflex to Free T4, Comprehensive Metabolic Panel 02/25/[address] [phone] Karla Cazares NP 02/25/2025 Refill [facility] [address] [place] [address] Mitzi Duffy FNP 02/23/2025 Refill [facility] [address] [place] [address] Mitzi Duffy FNP Other specified hypothyroidism 02/23/2025 Results Follow-Up [address] [phone] Karla Cazares NP SureSwab Advanced Vaginitis Plus, TMA, Urinalysis, Complete, with Reflex to Culture, Reflex Urine Culture, Culture, Urine, Routine 02/21/2025 2:20 PM EDT Office Visit [address] [phone] Karla Cazares NP Chronic sinusitis, unspecified location (Primary Dx); Irritable bowel syndrome with constipation; Urinary, incontinence, stress female; Other schizoaffective disorders ([facility]); Vaginal itching; Medication management 02/21/[address] [phone] Karla Cazares NP 02/14/2025 Travel 02/10/2025 Refill [facility] [address] [place] [address] Mitzi Duffy FNP Other specified hypothyroidism; Sjogren's syndrome, with unspecified organ involvement (CMS/HCC) 02/08/2025 Orders Only GENERIC EXTERNAL DATA DEPARTMENT Provider, Generic External Data 02/04/[address] [phone] Karla Cazares NP 02/02/2025 8:30 AM EDT Community Care Management [facility] [address] [facility] [address] [place] [address] Taylor Berkowitz 02/01/2025 Travel 02/01/[address] [phone] Karla Cazares NP 01/30/2025 Results Follow-Up [address] [phone] Gina Mora NP SureSwab Advanced Vaginitis Plus, TMA, Th[facility]Prep [facility] Pap and HPV mRNA E6/E7 with Reflex to HPV 16,18/45 01/28/2025 2:20 PM EDT Office Visit [address] [phone] Gina Mora NP Pap smear for cervical cancer screening (Primary Dx); Vaginal discharge 01/27/[address] [phone] Karla Cazares NP 01/26/2025 1:30 PM EDT Community Care Management [facility] [address] [place] [address] Sho Taylor 01/21/[address] [phone] Karla Cazares NP 01/21/2025 Orders Only [address] [phone] Gina Mora NP Bacterial vaginosis (Primary Dx) 01/21/2025 Results Follow-Up [address] [phone] Gina Mora NP POCT urinalysis dipstick manually resulted, Herpes Simplex Virus 1 and 2 (IgG), Type-Specific Antibodies, SureSwab Advanced Vaginitis Plus, TMA 01/21/[address] [phone] Karla Cazares NP 01/21/2025 Travel 01/20/2025 2:45 PM EDT Office Visit [address] [phone] Kareen Gomes LLD Excessive attrition of teeth (Primary Dx) 01/20/2025 9:20 AM EDT Office Visit [address] [phone] Gina Mora NP Dysuria (Primary Dx); Encounter for screening examination for sexually transmitted infection; Encounter for long-term (current) use of medications; Vaginal discharge; Colon cancer screening; Vaginal itching 01/20/[address] [phone] Gina Mora NP 01/19/[address] [phone] Karla Cazares, JOANN Polyarthralgia; Gastroesophageal reflux disease, unspecified whether esophagitis present 01/19/2025 Travel 01/13/2025 Travel 01/12/2025 Travel 01/12/[address] [place] [address] Karla Cazares NP 01/12/[address] [facility] [address] [facility] [address] [place] [address] Karla Cazares NP 01/06/2025 10:40 AM EDT Office Visit [address] [phone] Adelso Iverson AGNP Sjogren's syndrome with tubulo-interstitial nephropathy (CMS/HCC) (Primary Dx); Vaginal christiano 01/02/2025 Travel 01/01/[address] [phone] Claire Crawford LPN 12/31/2024 Results Follow-Up [address] [phone] Adelso Iverson AGNP POCT urinalysis dipstick manually resulted, SureSwab Advanced Vaginitis, TMA, Hemoglobin A1c, Additional followed-up results: 7 12/31/2024 Refill [facility] [address] [place] [address] Phalshahana, Mitzi, TRASH HAULER Polyarthralgia 12/30/2024 Refill [facility] [address] [place] [address] Phalen, Mitzi, TRASH HAULER Sjogren's syndrome, with unspecified organ involvement (CMS/HCC) 12/28/2024 1:20 PM EDT Office Visit [address] [phone] Adelso Iverson AGNP Annual visit for general adult medical examination with abnormal findings (Primary Dx); Dysuria; Vaginal discharge; Encounter for screening mammogram for breast cancer; Chronic constipation; Screening for lipid disorders; Screening for diabetes mellitus (DM); Routine screening for STI (sexually transmitted infection); Cerumen in auditory canal on examination 12/28/2024 Orders Only [address] [phone] Adelso Iverson AGNP 12/28/[address] [phone] Karla Cazares NP 12/27/2024 Travel 12/23/2024 3:30 PM EDT Office Visit [facility] [address] [place] [phone] Kareen Gomes, LLGigi Excessive attrition of teeth (Primary Dx) 12/23/[address] [phone] Karla Cazares NP Urinary, incontinence, stress female 12/20/2024 1:40 PM EDT Office Visit [address] [phone] Karla Cazares NP Sjogren's syndrome with keratoconjunctivitis sicca (CMS/HCC) (Primary Dx); Chronic sinusitis, unspecified location; Other schizoaffective disorders (CMS/HCC) 12/17/2024 Travel 12/17/2024 Telephone [facility] [address] [place] [address] Karla Cazares NP 12/16/[address] [phone] Karla Cazares NP 12/14/2024 Patient Outreach [facility] [address] [place] [address] Karla Cazares NP Care Coordination ([facility] outreach for [facility] housing search-referral completed ) from Last 3 Months Immunizations Immunization Administration [...] Sign Reading Time Taken Comments Blood Pressure 116/62 02/21/2025 2:25 PM EDT Pulse 61 02/21/2025 2:25 PM EDT Temperature 36.3 C (97.4 F) 12/23/2024 3:40 PM EDT Respiratory Rate 16 03/08/2024 11:51 AM EDT Oxygen Saturation 100% 02/21/2025 2:25 PM EDT Inhaled Oxygen Concentration - - Weight 95.3 kg (210 lb) 01/20/2025 8:56 AM EDT Height 161 cm (5' 3.39 ) 12/20/2024 2:16 PM EDT Body Mass Index 36.75 12/20/2024 2:16 PM EDT Plan of Treatment Upcoming Encounters Date Type Department Care Team (Late st Contact Info) Description 03/16/2025 11:20 AM EDT Telemedicine [address] [phone] Karla Cazares NP [address] [place] [phone] 03/16/2025 12:30 PM EDT Office Visit [facility] [address] [place] [phone] Kareen Gomes LLD [address] [place] [phone] 06/24/2025 2:20 PM EST Office Visit [address] [phone] Karla Cazares, GENERAL PRACTITIONER [address] [place] [address] Health Maintenance Due Date Last Done Comments CT Colonography 1972 Dental X-Ray: Full Mouth 1972 FIT DNA/Cologuard 1972 FIT 1972 FOBT 1972 Sigmoidoscopy 1972 Hepatitis B Vaccines (1 of 3 - 19+ 3-dose series) 08/18/1991 Pneumococcal Vaccine: 50+ Years (1 of 1 - PCV) 2022 Colonoscopy 07/23/2023 Colorectal Cancer Screening 07/23/2023 Mammogram 11/17/2024 11/18/2023, 08/07, 10/03/2017 SDOH Screening 04/29/2025 04/29/2024 Dental Prophylaxis 06/02/2025 [...] on patient's age to complete this topic Hepatitis A Vaccines Aged Out No long er eligible based on patient's age to complete this topic IPV Vaccines Aged Out No longer eligi ble based on patient's age to complete this topic Influenza Vaccine Discontinued Meningococcal B Vaccine Aged Out No l [...] Procedure Name Priority Date/Time Associated Diagnosis Comments COMPREHENSIVE METABOLIC PANEL Routine 02/25/2025 3:58 PM EDT Other specified hypothyroidism TSH W/REFLEX TO FT4 Routine 02/25/2025 3 :58 PM EDT Other specified hypothyroidism REFLEXIVE URINE CULTURE Routine 02/21/2025 4:30 PM EDT URINALYSIS, COMPLETE, WITH REFLEX TO CULTURE Routine 02/21/2025 4:30 PM EDT Urinary, incontinence, stress female SURESWAB(R) ADVANCED VAGINITIS PLUS, TMA Routine 02/21/2025 4:30 PM EDT Vaginal itching CULTURE, URINE, ROUTINE Routine 02/21/2025 4:30 PM EDT CHLAMYDIA/N. GONORRHOEAE RNA, TMA, UROGENITAL Routine 02/08/2025 3:30 PM EDT BACTERIAL VAGINOSIS PANEL Routine 02/08/2025 3:30 PM EDT THINPREP IMAGING PAP AND HPV MRNA E6/E7 [...] SURFACES (ANTERIOR) Routine 12/23/2024 3:30 PM EDT COMPREHENSIVE ORAL EVALUATION - NEW OR ESTABLISHED PATIENT Routine 12/01/2024 4:45 PM EDT PROPHYLAXIS - ADULT Routine 11/30/2024 1 0:30 AM EDT BITEWINGS - 4 RADIOGRAPHIC IMAGES Routine 11/30/2024 10:30 AM EDT BI MAMMOGRAM SCREENING TOMOSYNTHESIS BILATERAL Routine 08/25/2023 12:10 PM EDT from Last 3 Months or Most Recently Relevant to Health Maintenance Results * TSH with Reflex to Free T4 (02/25/2025 3:58 PM EDT) TSH w/Reflex to FT4 1.35 mIU/L [facility] Comment: Reference Range > or = 20 Years 0.40-4.50 Ranges First trimester 0.26-2.66 Second trimester 0.55-2.73 Third trimester 0.43-2.91 Blood Venous blood specimen / Unknown 02/25/2025 3:58 PM EDT 02/25/2025 3:59 PM EDT Karla Cazares NP LAB BLOOD ORDERABLES Final Resul t [facility] [address], [place] [address] Member Desk [place] [employer] [address] [place] [address] * (ABNORMAL) Comprehensive Metabolic Panel (02/25/2025 3:58 PM EDT) Only the most recent of2 resultswithin the time period is included. Glucose 142(H) 65 - 99 mg/dL Member Desk [place] [facility] Comment: Fasting reference interval For someone without known diabetes, a glucose value >125 mg/dL indicates that they may have diabetes and this should be confirmed with a follow-up test. Urea Nitrogen (BUN) 17 7 - 25 mg/dL [facility] [place] [facility] Creatinine, Serum 1.20(H) 0.50 - 1.03 mg/dL [facility] [place] [facility] eGFR 54(L) > OR = 60 mL/min/1. 73m2 [facility] BUN/Creatinine Ratio 14 6 - 22 (calc) [facility] [place] [facility] Sodium 135 135 - 146 mmol/L [facility] Potassium 3.8 3.5 - 5.3 mmol/L [facility] [place] [facility] Chloride 99 98 - 110 mmol/L [facility] Carbon Dioxide 27 20 - 32 mmol/L [facility] [place] [facility] Calcium 9.4 8.6 - 10.4 mg/dL [facility] [place] [facility] Protein, Total 7.2 6.1 - 8.1 g/dL [facility] Albumin 4.4 3.6 - 5.1 g/dL [facility] Globulin 2.8 1.9 - 3.7 g/dL (calc) [facility] Albumin/Globuli n Ratio 1.6 1.0 - 2.5 (calc) [facility] Bilirubin, Total 0.5 0.2 - 1.2 mg/dL [facility] Alkaline Phosphatase 86 37 - 153 U/L [facility] AST 16 10 - 35 U/L [facility] ALT 12 6 - 29 U/L [facility] Blood Venous blood specimen / Unknown 02/25/2025 3:58 PM EDT 02/25/2025 3:59 PM EDT us Karla Cazares NP LAB BLOOD ORDERABLES Final Resul t Performing Organization Address City/[facility]/ZIP Co de Phone Number [address], [facility] [place] [address] Member Desk [place] [facility] [address] [place] [phone] * Reflex Urine Culture (02/21/2025 4:30 PM EDT) REFLEXIVE URINE CULTURE [facility] Comment:CULTURE INDICATED - RESULTS TO FOLLOW 02/21/2025 4:30 PM EDT 02/21/2025 4:31 PM EDT Narrative [facility] - 02/23/2025 1:16 AM EDT FASTING:UNKNOWN FASTING: UNKNOWN us Karla Cazares NP HISTORICAL/NON ORDERABLE LABS Fi nal Result Performing Organization Address City/[facility]/ZIP Co de Phone Number [address], [facility] [place] [address] Member Desk [place] [facility] [address] [place] [address] * (ABNORMAL) Urinalysis, Complete, with Reflex to Culture (02/21/2025 4:30 PM EDT) Color YELLOW YELLOW [facility] [place] [facility] Appearance CLEAR CLEAR Member Desk [place] [facility] Specific [place] 1.006 1.001 - 1.035 [facility] pH, Urine 6.5 5.0 - 8.0 [facility] [place] [facility] Glucose, Urine NEGATIVE NEGATIVE [facility] [facility] Bilirubin,Urin e NEGATIVE NEGATIVE [facility] Ketones,Urine NEGATIVE NEGATIVE [facility] Occult Blood,Urine TRACE(A) NEGATIVE [facility] Protein,Urine NEGATIVE NEGATIVE [facility] Nitrite NEGATIVE NEGATIVE [facility] Leukocyte Esterase TRACE(A) NEGATIVE [facility] WBC, UA NONE SEEN < OR = 5 /HPF [facility] RBC, UA NONE SEEN < OR = 2 /HPF [facility] Squamous Epithelial Cells NONE SEEN < OR = 5 /HPF [facility] Bacteria FEW(A) NONE SEEN /HPF [facility] Hyaline Cast NONE SEEN NONE SEEN /LPF [facility] Note [facility] Comment: This urine was analyzed for the presence of WBC, RBC, bacteria, casts, and other formed elements. Only those elements seen were reported. Urine 02/21/2025 4:30 PM EDT 02/21/2025 4:31 PM EDT Narrative [facility] - 02/23/2025 1:16 AM EDT FASTING:UNKNOWN FASTING: UNKNOWN us Karla Cazares NP LAB URINE ORDERABLES Final Resul t [facility] [address], [place] [address] [facility] [address] [place] [address] * (ABNORMAL) SureSwab?? Advanced Vaginitis Plus, TMA (02/21/2025 4:30 PM EDT) Only the most recent of3 resultswithin the time period is included. SureSwab 9R) ADV Bacterial Vaginosis (BV), TMA POSITIVE(A) NEGATIVE [facility] Christiano Species NOT DETECTED NOT DETECTED [facility] Christiano glabrata NOT DETECTED NOT DETECTED [facility] Comment: Christiano species C. albicans, C. tropicalis, C. parapsilosis, and/or C. dubliniensis can be detected, but not differentiated, in the Christiano spp. result. Trichomonas vaginalis (TV), TMA NOT DETECTED NOT DETECTED [facility] Chlamydia trachomatis RNA, TMA, Urogenital NOT DETECTED NOT DETECTED [facility] Neisseria gonorrhoeae RNA, TMA, Urogenital NOT DETECTED NOT DETECTED [facility] Comment: For additional information, please refer to https://education.LABOMAR/faq/JJP491 (This link is being provided for information/ educational purposes only.) Swab Vaginal structure / Unknown 02/21/2025 4:30 PM EDT 02/21/2025 4:31 PM EDT Narrative [facility] - 02/23/2025 1:16 AM EDT FASTING:UNKNOWN FASTING: UNKNOWN Karla Cazares NP LAB BODY FLUIDS AND STOOLS ORDER BINDU Final Result [facility] [address], [place] [address] [facility] Desk [facility] [address] [place] [address] * Culture, Urine, Routine (02/21/2025 4:30 PM EDT) Culture, Urine, Routine SEE NOTE Member Desk [facility] Comment: CULTURE, URINE, ROUTINE Micro Number: [id number] Test Status: Final Specimen Source: Urine Specimen Quality: Adequate Result: Mixed genital jacqueline isolated. These superficial bacteria are not indicative of a urinary tract infection. No further organism identification is warranted on this specimen. If clinically indicated, recollect clean-catch, mid-stream urine and transfer immediately to Urine Culture Transport Tube. 02/21/2025 4:30 PM EDT 02/21/2025 4:31 PM EDT Narrative [facility] - 02/23/2025 1:16 AM EDT FASTING:UNKNOWN FASTING: UNKNOWN us Karla Cazares NP LAB MICROBIOLOGY - GENERAL ORDER BINDU Final Result [facility] [address] [facility], [place] [address] Member Desk [facility] [address] [place] [address] * Bacterial Vaginosis (02/08/2025 3:30 PM EDT) TRICHOMONAS VAGINALIS DETECTION BY PCR NOT DETECTED Not Detect [facility] BACTERIAL VAGINOSIS DETECTION BY PCR NEGATIVE Negative [facility] Comment:The BV organism targ ets of the Xpert Xpress MVP test can becommensal in women; Xpert Xpress MVP positive results forbacterial vaginosis should be considered in conjunction withother clinical and patient information to determine thedisease status. Organisms that are not detected by the XpertXpress MVP test have also been reported to be associatedwith BV and aerobic vaginitis.The Xpert Xpress MVP test performance has not been evaluatedin patients under the age of 14. CHRISTIANO GROUP DETECTION BY PCR NOT DETECTED Not Detect [facility] Christiano glab krusei PCR NOT DETECTED Not Detect [facility] 02/08/2025 3:30 PM EDT 02/08/2025 11:23 PM EDT us Generic External Data Provider LAB MICROBIOLOGY - GENERAL ORDERABLES Final Result Performing Organization Address [facility]/ZIP Co de Phone Number [facility] [address] [place] [phone] * Chlamydia/N. Gonorrhoeae RNA, TMA, Urogenitial (02/08/2025 3:30 PM EDT) Only the most recent of2 resultswithin the time period is included. CT PCR NOT DETECTED Not Detect. [facility] Comment:A not detected test result does not exclude the possibilityof infection because test results can be affected byimproper specimen collection, concurrent antibiotic therapy,or the number of organisms in the specimen which may bebelow the sensitivity of the test. As with many diagnostictests, results from the Xpert CT/NG assay should beinterpreted in conjunction with other laboratory andclinical data available to the clinician.Xpert CT/NG performance has not been evaluated in patientsless than 14 years of age. The assay should not be used forthe evaluationof suspected sexual abuse or for other medico-legalindications. Additional testing is recommended in anycircumstance when false positive or false negative resultscould lead to adverse medical, social or psychologicalconsequences. NG PCR NOT DETECTED Not Detect. [facility] Comment:A not detected test result does not exclude the possibilityof infection because test results can be affected byimproper specimen collection, concurrent antibiotic therapy,or the number of organisms in the specimen which may bebelow the sensitivity of the test. As with many diagnostictests, results from the Xpert CT/NG assay should beinterpreted in conjunction with other laboratory andclinical data available to the clinician.Xpert CT/NG performance has not been evaluated in patientsless than 14 years of age. The assay should not be used forthe evaluationof suspected sexual abuse or for other medico-legalindications. Additional testing is recommended in anycircumstance when false positive or false negative resultscould lead to adverse medical, social or psychologicalconsequences. 02/08/2025 3:30 PM EDT 02/08/2025 11:23 PM EDT us Generic External Data Provider LAB MICROBIOLOGY - GENERAL ORDERABLES Final Result [facility] [address] [place] [phone] * ThinPrep Imaging Pap and HPV mRNA E6/E7 with Reflex to HPV 16,18/45 (01/28/2025 3:03 PM EDT) Clinical Information: [facility] Comment:VERONIQUE MORRIS LEEP CIN1 LMP: [facility] Comment:NONE GIVEN Prev. PAP: [facility] Comment:NONE GIVEN Prev. BX: [facility] Comment:NO SOURCE: [facility] Comment:Cervix, Endocervix Statement Of Adequacy: [facility] Comment: Satisfactory for evaluation. Endocervical/transformation zone component absent. Interpretation/Res ult: [facility] Comment: Cytology Results: Negative for intraepithelial lesion or malignancy. COMMENT: [facility] Comment: This Pap test has been evaluated with the ThinPrep(R) Imaging System. [employer] Installer: [facility] Comment: RMM, CT(ASCP) CT screening location: [place] [address] Review [employer] Installer: [facility] Comment: RXB, CT(ASCP) CT screening location: [place] [address] (Always Message) Que Dashbook Comment: EXPLANATORY NOTE: The Pap is a [...] HPV nRNA E6/E7 Not Detected Not Detected [facility] Comment: Methodology: Claims Service Adjustor-Mediated Amplification This assay detects E6/E7 viral messenger RNA (mRNA) from 14 high-risk HPV types (16,18,31,33,35,39,45,51,52,56,58,59,66,68). Cervical sources are required for HPV testing. If a vaginal source from a patient who has had a total hysterectomy with removal of cervix was submitted, please contact the testing laboratory for alternative testing options. For additional information, please refer to http://education.WorldStores.Ciashop/faq/ZTM441b4 (This link if provided for information/ educational purposes only.) Pap Vial 01/28/2025 3:03 PM EDT 01/31/2025 3:28 AM EDT Narrative [facility] - 02/01/2025 1:15 PM EDT SPLIT 01/28/2025 FROM [id number] Gina Byrnes GENERAL PRACTITIONER LAB PATHOLOGY ORDERABLES Final R esult [facility] [address] [facility], [place] [address] Member Desk [facility] [address] [place] [address] * (ABNORMAL) POCT urinalysis dipstick manually resulted [...] None Detected Urine 01/20/2025 9:28 AM EDT Result [facility] GENERAL PRACTITIONER POINT OF CARE TEST ENTER/EDIT OR DERABLES Final Result * (ABNORMAL) Herpes Simplex Virus 1 and 2 (IgG), Type-Specific Antibodies (01/20/2025 9:27 AM EDT) HSV 1 IgG, Type Specific Antibody 7.64(H) index [facility] HSV 2 IgG, Type Specific Antibody <0.90 index [facility] Comment: Index Interpretation ----- <0.90 Negative 0.90-1.09 [...] screening. For additional information, please refer to http://education.AngelPrime.Ciashop/faq/XXE978 (This link is being provided for informational/ educational purposes only.) Blood Venous blood specimen / Unknown 01/20/2025 9:27 AM EDT 01/20/2025 9:28 AM EDT Narrative [facility] - 01/21/2025 10:41 AM EDT SPECIMEN COLLECTED AT PROVIDER OFFICE. Gina Mora GENERAL PRACTITIONER LAB BLOOD ORDERABLES Final Resul t Performing Organization Address [facility] Co de Phone Number [address], [facility] [place] [address] [facility] [place] [facility] [address] [place] [address] * (ABNORMAL) SureSwab?? Advanced Vaginitis, TMA (12/28/2024 2:48 PM EDT) SureSwab 9R) ADV Bacterial Vaginosis (BV), TMA POSITIVE(A) NEGATIVE [facility] Christiano Species DETECTED(A) NOT DETECTED [facility] Christiano glabrata NOT DETECTED NOT DETECTED [facility] Comment: Christiano species C. albicans, C. tropicalis, C. parapsilosis, and/or C. dubliniensis can be detected, but not differentiated, in the Christiano spp. result. Trichomonas vaginalis (TV), TMA NOT DETECTED NOT DETECTED [facility] 12/28/2024 2:48 PM EDT 12/28/2024 2:49 PM EDT Result [facility] Adelso RICHARD LAB BODY FLUIDS AND STOOLS ORDER BINDU Final Result Performing Organization Address [facility] Co de Phone Number [facility] [address] [place] [address], [place] [address] [facility] [address] [place] [phone] * (ABNORMAL) Hemoglobin A1c (12/28/2024 2:38 PM EDT) Hemoglobin A1c 6.0(H) <5.7 % [facility] Comment: For someone without known diabetes, a [...] 2:38 PM EDT 12/28/2024 2:39 PM EDT us Adelso Iverson [facility] LAB BLOOD ORDERABLES Final Resul t [facility] [address], [place] [address] Member Desk [place] [facility] [address] [place] [address] * (ABNORMAL) Lipid Panel, Standard (12/28/2024 2:38 PM EDT) [facility] Cholesterol, Total 208(H) <200 mg/dL [facility] HDL Cholesterol 54 > OR = 50 mg/dL [facility] Triglycerides 151(H) <150 mg/dL [facility] LDL Cholesterol 128(H) mg/dL [facility] Comment: Reference range: <100 Desirable range <100 mg/dL for primary prevention; <70 mg/dL for patients with CHD or diabetic patients with > or = 2 CHD risk factors. LDL-C is now calculated using the Bhavik-Shanthi calculation, which is a validated novel method providing better accuracy than the Friedewald equation in the estimation of LDL-C. Bhavik GLASS et al. DICK. 2013;310(19): 6480-7995 (http://education.AngelPrime.Ciashop/faq/QOV445) Chol/HDLC Ratio 3.9 <5.0 (calc) [facility] Non-HDL Cholesterol 154(H) <130 mg/dL [facility] Comment: For patients with diabetes plus 1 major ASCVD risk factor, treating to a non-HDL-C goal of <100 mg/dL (LDL-C of <70 mg/dL) is considered a therapeutic option. Blood Venous blood specimen / Unknown 12/28/2024 2:38 PM EDT 12/28/2024 2:39 PM EDT Adelso October AGNP LAB BLOOD ORDERABLES Final Resul t Performing Organization Address [facility] de Phone Number [address], [place] [address] Member Desk [facility] [address] * Trichomonas vaginalis RNA, Qualitative, TMA (12/28/2024 2:37 PM EDT) Trichomas vaginalis RNA, QL, TMA NOT DETECTED NOT DETECTED [facility] Comment: For additional information, please refer to http://FoodByNet/ faq/Trichomonastma (This link is being provided for informational/ educational purposes only.) Urine (Urine, Random) 12/28/2024 2:37 PM EDT 12/28/2024 2:37 PM EDT Result [facility] Adelso October AGNP LAB BODY FLUIDS AND STOOLS ORDER BINDU Final Result Performing Organization Address [facility] de Phone Number [address], [place] [address] Member Desk [facility] [address] * Hepatitis C Antibody with Reflex to HCV, RNA, Quantitative, Real-Time PCR (12/28/2024 2:37 PM EDT) Hepatitis C Antibody NON-REACT CHRIS NON-REACT CHRIS [facility] Comment: HCV antibody was non-reactive. There is no laboratory evidence of HCV infection. In most cases, no further action is required. However, if recent HCV exposure is suspected, a test for HCV RNA (test code 62499) is suggested. For additional information please refer to http://LifeCareSim.LABOMAR/faq/LAF22o7 (This link is being provided for informational/ educational purposes only.) Blood Venous blood specimen / Unknown 12/28/2024 2:37 PM EDT 12/28/2024 2:37 PM EDT Adelso October AGNP LAB BLOOD ORDERABLES Final Resul t Performing Organization Address [facility]/ZIP Co de Phone Number [facility] [address] [place] [address], [place] [address] Member Desk [place] [facility] [address] [place] [phone] * RPR (Monitor) with Reflex to??Titer (12/28/2024 2:37 PM EDT) RPR (Monitor) w/Refl Titer NON-REACT CHRIS NON-REACT CHRIS [facility] Blood Venous blood specimen / Unknown 12/28/2024 2:37 PM EDT 12/28/2024 2:37 PM EDT Result [facility] LAB BLOOD ORDERABLES Final Resul t Performing Organization Address [facility] de Phone Number [facility] [address] [place] [phone] Member Desk [place] [facility] [address] [place] [phone] * HIV-1/2 Antigen and Antibodies, Fourth Generation, with Reflexes (12/28/2024 2:37 PM EDT) HIV Final Interpretation [facility] [place] [facility] Comment: HIV Negative HIV-1 antigen and HIV-1/HIV-2 antibodies were not detected. There is no laboratory evidence of HIV infection. HIV Antigen/Antibody, 4th Generation NON-REACT CHRIS NON-REAC TIVE [facility] Blood Venous blood specimen / Unknown 12/28/2024 2:37 PM EDT 12/28/2024 2:37 PM EDT Adelso October AGNP LAB BLOOD ORDERABLES Final Resul t [facility] [address] [facility], [place] [address] Member Desk [facility] [address] [place] [address] * BI Mammogram Screening Tomosynthesis Bilateral (08/25/2023 12:10 PM EDT) Anatomical Region Laterality Modality Breast Bilateral Mammography 08/25/2023 12:1 0 PM EDT Narrative 09/16/2023 10:55 PM EDT [facility] [address] [place] [address] Mammography Report Signed Patient: Nova Jimenez MR#: [id number] : 1970 Acct:[id number] Age/Sex: 53 / F ADM Date: 08/25/23 Loc: [facility] Attending Dr: Tre King MD Ordering Physician: Tre King MD Results: 1Negativ e Date of Service: 08/25/23 Follow Up: 1 [facility] From [facility] Mammogram Procedure(s): MM tomosynthesis screening BI Accession Number(s): [id number] cc: Mitzi Duffy; Tre King MD EXAMINATION: [...] MD in OV> 09/16/232251 DD/ 1210 TD/TT: Computing Tutor: Procedure Note Donotuseinterpreter, Image - 09/16/[address] [place] [address] Mammography Report Signed Patient: Nova Jimenez AMR#: [id number] : 1970Acct:[id number] Age/Sex: 53 / FADM Date: 08/25/23 Loc: HO.MAMMO Attending Dr: Tre King MD Ordering Physician: Tre King MDResults: 1Negativ e Date of Service: 08/25/23Follow Up: 1 Year From Orig inal Mammogram Procedure(s): MM tomosynthesis screening BI Accession Number(s): [id number] cc: Mitzi Duffy; Tre King MD EXAMINATION: [...] MD in OV> 09/16/232251 DD/ 1210 TD/TT: Computing Tutor: us [facility] External Provider IMG BI PROCEDURES Final Result from Last 3 Months or Most Recently Relevant to Health Maintenance Insurance [facility] MEDICAID STAND ADULT DENTAL - HSN PARTIAL (MEDICAID) Care Teams Hose Inspector Relationship Specialty Start Date End Date Karla Cazares NP [address] [place] [phone] PCP - General Family Medicine 11/16/24 Tre King MD [address] [place] [address] [place] [phone] Obstetrics and Gynecology 04/25/24
--- OUTSIDE RECORDS SUMMARY | 2025-03-10 16:25 | XMS_ITS | Encounter Summary ---
Author Organization [employer] Address [address] [place] [address] Care Team Providers Care Derrickman Helper Name Role Phone Mitzi Duffy Primary Care Provider [phone] Tre King MD Unavailable Karla Cazares NP Primary Care Provider [phone] Encounter Details Date Type Department Care Team ([facility] st Contact Info) Description 04/14/2024 Orders Only [facility] [address] [place] [address] Mitzi Duffy FNP [address] [place], [place] [phone] Polyarthralgia (Primary Dx) Social History Tobacco Use [...] Info) Description 03/16/2025 11:20 AM EDT Telemedicine [facility] [address] [place] [phone] Karla Cazares, JOANN [address] [place] [phone] 03/16/2025 12:30 PM EDT Office Visit [facility] [address] [place] [phone] Kareen Gomes LLD [address] [place] [phone] 06/24/2025 2:20 PM EST Office Visit [address] [phone] Karla Cazares, JOANN [address] [place] [phone] documented as of this encounter Visit Diagnoses Diagnosis Polyarthralgia- Primary Pain in joint, multiple sites documented in this encounter Additional Health Concerns Assessment Noted Time PHQ-9 Depression Total Score: 0 12/24/19 11:34 AM EDT documented as of this encounter Care Teams Derrickman Helper Relationship Specialty Start Date End Date Mitzi Duffy FNP [address] [place] [address] PCP - General Family Medicine 02/05/22 11/15/24 Karla Cazares NP [address] [place] [phone] PCP - General Family Medicine 11/16/24 Tre King MD [address] [place] [address] [place] [address] Obstetrics and Gynecology 04/25/24 documented as of this encounter
--- OUTSIDE RECORDS SUMMARY | 2025-03-10 16:25 | XMS_ITS | Encounter Summary ---
Author Organization [employer] Address [address] [place] [address] [address] [place] [address] Care Team Providers Care Elevator Service Mechanic Name Role Phone Tre King MD Unavailable Karla Cazares NP Primary Care Provider [phone] Encounter Details Date Type Department Care Team ([facility] Contact Info) Description 02/01/2025 Telephone [facility] [address] [place] [phone] Karla Cazares NP [address] [place] [address] Social History Tobacco Use Types Packs/Day Years [...] she will go back to her old [employer] in [place] if needed. * Telephone Encounter - Rebecca [...] few days. Scheduled visit with LP at [facility] as she has been seeing her regarding this. * Telephone Encounter - Lila Sol - 02/01/2025 9:54 AM EDT Patient is having reacurring UTI s and thinks she needs to see someone also having period for 1st time in a year at 54 years old [phone] documented in this encounter Plan of Treatment Upcoming Encounters Date Type Department Care Team ([facility] Contact Info) Description 03/16/2025 11:20 AM EDT Telemedicine [facility] [address] [place] [phone] Karla Cazares NP [address] [place] [phone] 03/16/2025 12:30 PM EDT Office Visit [facility] [address] [place] [phone] Kareen Gomes LLD [address] [place], [place] 06/24/2025 2:20 PM EST Office Visit [facility] [address] [place] [phone] Karla Cazares NP [address] [place], [place] [phone] documented as of this encounter Visit Diagnoses Not on filedocumented in this encounter Additional Health Concerns Assessment Noted Time PHQ-9 Depression Total Score: 15 025 3:36 PM EDT documented as of this encounter Care Teams Elevator Service Mechanic Relationship Specialty Start Date End Date Karla Cazares NP [address] [place] [phone] PCP - General Family Medicine 11/16/24 Tre King MD [address] [place] [phone] Obstetrics and Gynecology 04/25/24 documented as of this encounter
--- OUTSIDE RECORDS SUMMARY | 2025-03-10 16:25 | XMS_ITS | Encounter Summary ---
Author Organization [employer] Address [address] [facility] [facility] [address] 7t [place] [address] Care Team Providers Care Police Radio Dispatcher Name Role Phone Mitzi Duffy Primary Care Provider [phone] Tre King MD Unavailable Karla Cazares NP Primary Care Provider [phone] Reason for Visit * Reason Onset Date Comments FYI 05/14/2023 Encounter Details Date Type Department Care Team ([facility] st Contact Info) Description 05/14/2023 Telephone [facility] [address] [place] [address] Mitzi Duffy FNP [address] [place], [place] [phone] FYI Social History Tobacco Use Types Packs/Day [...] prescribed PRN by Dr. Arevalo in the [facility] for panic attacks. She states that when [...] her blood pressure. Any questions contact Rosaura [phone] documented in this encounter Plan of Treatment Upcoming Encounters Date Type Department Care Team (Late st Contact Info) Description 03/16/2025 11:20 AM EDT Telemedicine [facility] [address] [place] [address] [phone] Karla Cazares NP [address] [place] [address] 03/16/2025 12:30 PM EDT Office Visit [facility] [address] [place] [address] [phone] Kareen Gomes LLD [address] [place] [address] 06/24/2025 2:20 PM EST Office Visit [facility] [address] [place] [address] [phone] Karla Cazares NP [address] [place] [address] documented as of this encounter Visit Diagnoses Not on filedocumented in this encounter Additional Health Concerns Assessment Noted Time PHQ-9 Depression Total Score: 0 06/04/20 22 3:05 PM EST documented as of this encounter Care Teams Police Radio Dispatcher Relationship Specialty Start Date End Date Mitzi Duffy FNP [address] [place] [address] PCP - General Family Medicine 02/05/22 11/15/24 Karla Cazares NP [address] [place] [address] PCP - General Family Medicine 11/16/24 Tre King MD [address] [place] [address] Obstetrics and Gynecology 04/25/24 documented as of this encounter
--- OUTSIDE RECORDS SUMMARY | 2025-03-10 16:25 | XMS_ITS | Encounter Summary ---
Author Organization [employer] Address [address] [place] [address] 7 [place] [address] Care Team Providers Care Mink Slicer Name Role Phone Tre King MD Unavailable Karla Cazares NP Primary Care Provider [phone] Encounter Details Date Type Department Care Team ([facility] Contact Info) Description 01/27/2025 Telephone [facility] [address] [place] [address] Karla Cazares NP [address] [place] [address] Social History Tobacco Use Types Packs/Day Years [...] reach out to her. Call back # [phone] documented in this encounter Plan of Treatment Upcoming Encounters Date Type Department Care Team (Late st Contact Info) Description 03/16/2025 11:[address] [facility] [address] [place] [address] [phone] Karla Cazares NP [address] [place] [address] 03/16/2025 12:30 PM EDT Office Visit [facility] [address] [place] [phone] Kareen Gomes LLD [address] [place] [address] 06/24/2025 2:20 PM EST Office Visit [address] [phone] Karla Cazares NP [address] [place] [address] documented as of this encounter Visit Diagnoses Not on filedocumented in this encounter Additional Health Concerns Assessment Noted Time PHQ-9 Depression Total Score: 15 025 3:36 PM EDT documented as of this encounter Care Teams Mink Slicer Relationship Specialty Start Date End Date Karla Cazares NP [address] [place] [address] PCP - General Family Medicine 11/16/24 Tre King MD [address] [place] [address] [place] [address] Obstetrics and Gynecology 04/25/24 documented as of this encounter
--- OUTSIDE RECORDS SUMMARY | 2025-03-10 16:25 | XMS_ITS | Encounter Summary ---
Author Organization [employer] Address [address] [facility] 7t [place] [address] Care Team Providers Care Radiologist Chief Of Breast Imaging Name Role Phone Mitzi Duffy Primary Care Provider [phone] Tre King MD Unavailable Karla Cazares NP Primary Care Provider [phone] Reason for Visit * Reason Comments Med Refill Encounter Details Date Type Department Care Team ([facility] st Contact Info) Description 04/07/2024 Refill [facility] [address] [place], [place] [phone] Mitzi Duffy FNP [address] [place], [place] [phone] Rhinitis, unspecified type Social History Tobacco Use [...] Info) Description 03/16/2025 11:20 AM EDT Telemedicine [address] [phone] Karla Cazares NP [address] [place] [address] 03/16/2025 12:30 PM EDT Office Visit [facility] [address] [place] [phone] Kareen Gomes LLD [address] [place] [address] 06/24/2025 2:20 PM EST Office Visit [address] [phone] Karla Cazares NP [address] [place] [address] documented as of this encounter Visit Diagnoses Diagnosis Rhinitis, unspecified type documented in this encounter Additional Health Concerns Assessment Noted Time PHQ-9 Depression Total Score: 0 12/24/19 11:34 AM EDT documented as of this encounter Care Teams Radiologist Chief Of Breast Imaging Relationship Specialty Start Date End Date Mitzi Duffy FNP [address] [place] [address] PCP - General Family Medicine 02/05/22 11/15/24 Karla Cazares NP [address] [place] [address] PCP - General Family Medicine 11/16/24 Tre King MD [address] [place] [address] [place] [address] Obstetrics and Gynecology 04/25/24 documented as of this encounter
--- OUTSIDE RECORDS SUMMARY | 2025-03-10 16:25 | XMS_ITS | Encounter Summary ---
Author Organization [employer] Address [address] 7t [place] [address] Care Team Providers Care Telephone Diaphragm Assembler Name Role Phone Mitzi Duffy Primary Care Provider [phone] Tre King MD Unavailable Karla Cazares NP Primary Care Provider [phone] Reason for Visit * Reason Onset Date Comments Call back Request 03/19/2024 Encounter Details Date Type Department Care Team (Late st Contact Info) Description 03/19/2024 Telephone [facility] [address] [place] [address] Mitzi Duffy FNP [address] [place], [place] [phone] Call back Request Social History Tobacco Use [...] encounter Miscellaneous Notes * Telephone Encounter - ANNE-MARIE Gan - 03/29/2024 6:30 PM EDT Last [...] back, please see notes. Please contact at [phone] * Telephone Encounter - Brett Lindo - 03/19/2024 4:29 PM EDT Tc from pt requesting call back regarding incontinence medication. Please contact pt at [phone]. documented in this encounter Plan of Treatment Upcoming Encounters Date Type Department Care Team (Late st Contact Info) Description 03/16/2025 11:20 AM EDT Telemedicine [address] [phone] Karla Cazares NP [address] [place] [address] 03/16/2025 12:30 PM EDT Office Visit [facility] [address] [place] [address] [phone] Kareen Gomes LLD [address] [place] [address] 06/24/2025 2:20 PM EST Office Visit [address] [phone] Karla Cazares NP [address] [place] [address] documented as of this encounter Visit Diagnoses Not on filedocumented in this encounter Additional Health Concerns Assessment Noted Time PHQ-9 Depression Total Score: 0 12/24/19 24 11:34 AM EDT documented as of this encounter Care Teams Telephone Diaphragm Assembler Relationship Specialty Start Date End Date Mitzi Duffy FNP [address] [place] [address] PCP - General Family Medicine 02/05/22 11/15/24 Karla Cazares NP [address] [place] [address] PCP - General Family Medicine 11/16/24 Tre King MD [address] [place] [address] Obstetrics and Gynecology 04/25/24 documented as of this encounter
--- OUTSIDE RECORDS SUMMARY | 2025-03-10 16:25 | XMS_ITS | Encounter Summary ---
Author Organization [employer] Address [address] [facility] [address] 7t [place] [address] Care Team Providers Care Fruit Grading Supervisor Name Role Phone Mitzi Duffy Primary Care Provider Tre King MD Unavailable Karla Cazares NP Primary Care Provider [phone] Reason for Visit * Reason Comments Med Refill Encounter Details Date Type Department Care Team ([facility] st Contact Info) Description 04/01/2024 Refill [facility] [address] [place], [place] [phone] Mitzi Duffy FNP [address] [place], [place] [phone] Rhinitis, unspecified type; Sjogren's syndrome, with unspecified [...] 03/16/2025 11:[address] [facility] [address] [place] [address] [phone] Karla Cazares NP [address] [place] [address] 03/16/2025 12:30 PM EDT Office Visit [facility] [address] [place] [phone] Kareen Gomes LLD [address] [place] [address] 06/24/2025 2:20 PM EST Office Visit [address] [phone] Karla Cazares NP [address] [place] [address] documented as of this encounter Visit Diagnoses Diagnosis Rhinitis, unspecified type Sjogren's syndrome, with unspecified organ involvement (CMS/HCC) documented in this encounter Additional Health Concerns Assessment Noted Time PHQ-9 Depression Total Score: 0 12/24/19 24 11:34 AM EDT documented as of this encounter Care Teams Fruit Grading Supervisor Relationship Specialty Start Date End Date Mitzi Duffy FNP [address] [place] [address] PCP - General Family Medicine 02/05/22 11/15/24 Karla Cazares NP [address] [place] [address] PCP - General Family Medicine 11/16/24 Tre King MD [address] [place] [address] Obstetrics and Gynecology 04/25/24 documented as of this encounter
--- OUTSIDE RECORDS SUMMARY | 2025-03-10 16:25 | XMS_ITS | Encounter Summary ---
Author Organization [employer] Address [address] [facility] 7 [place] [address] Care Team Providers Care Automotive Internet Sales Consultant Name Role Phone Mitzi Duffy Primary Care Provider [phone] Tre King MD Unavailable Karla Cazares NP Primary Care Provider [phone] Encounter Details Date Type Department Care Team (Late st Contact Info) Description 06/29/2024 Telephone [facility] [address] [place] [address] Mitzi Duffy FNP [address] [place] [address] Social History Tobacco Use Types Packs/Day Years [...] with others, in a hotel, in a residential, living outside on the street, on a [...] Info) Description 03/16/2025 11:20 AM EDT Telemedicine [address] [phone] Karla Cazares NP [address] [place] [address] 03/16/2025 12:30 PM EDT Office Visit [facility] [address] [place] [phone] Kareen Gomes LLD [address] [place] [address] 06/24/2025 2:20 PM EST Office Visit [address] [phone] Karla Cazares NP [address] [place] [address] documented as of this encounter Visit Diagnoses Not on filedocumented in this encounter Additional Health Concerns Assessment Noted Time PHQ-9 Depression Total Score: 0 12/24/19 24 11:34 AM EDT documented as of this encounter Care Teams Automotive Internet Sales Consultant Relationship Specialty Start Date End Date Mitzi Duffy FNP [address] [place] [address] PCP - General Family Medicine 02/05/22 11/15/24 Karla Cazares NP [address] [place] [address] PCP - General Family Medicine 11/16/24 Tre King MD [address] [place] [address] Obstetrics and Gynecology 04/25/24 documented as of this encounter
== END 2025-03-10 15:37 | disposition home or self-care (01) ==
PROVIDERS: PCP Registered Nurse; Visit Provider Obstetrics & Gynecology
DX: C44.90 Unspecified malignant neoplasm of skin, unspecified (principal); B97.7 Papillomavirus as the cause of diseases classified elsewhere; N95.0 Postmenopausal bleeding
CPT/HCPCS: 57454

== ENCOUNTER 2025-03-10 14:56 | Outpatient (REF) | payer MEDICAID, SELFPAY | END 2025-03-10 14:57 | disposition home or self-care (01) | LOC: HO.LNP 14:56 | PROVIDERS: PCP Registered Nurse; Visit Provider Obstetrics & Gynecology | DX: C44.90 Unspecified malignant neoplasm of skin, unspecified (principal); N95.0 Postmenopausal bleeding; R87.610 Atypical squamous cells of undetermined significance on cytologic smear of cervix (ASC-US); R87.810 Cervical high risk human papillomavirus (HPV) DNA test positive; B97.7 Papillomavirus as the cause of diseases classified elsewhere | CPT/HCPCS: 57454; 88305 ==

== ENCOUNTER 2025-03-10 15:49 | Outpatient (REF) | payer MEDICAID, SELFPAY ==
--- NOTE | ~2025-03-10 | US_ITS ---
EXAMINATION: US PELVIS CLINICAL INFORMATION: Postmenopausal bleeding COMPARISON: Previous pelvic ultrasound July 2023 TECHNIQUE: Ultrasound of the pelvis is performed using both transabdominal and transvaginal transducers along with Doppler. Transvaginal imaging is performed due to inadequate visualization transabdominally. FINDINGS: Uterus: The uterus is anteverted and measures 7.2 x 3.1 x 3.3 cm. Endometrial thickness measures 1.1 cm which is increased for a postmenopausal patient. No fluid seen in the endometrial canal. The uterus is smooth in contour and has normal myometrial echogenicity. No visible fibroid. Adnexa: Right ovary is not seen. Left ovary measures 2 x 1.7 x 1.5 cm. No pelvic fluid. US/US pelvic and transvaginal IMPRESSION: Abnormally thickened endometrium measuring 1.1 cm. How much of this is related to recent endometrial biopsy is uncertain. No endometrial fluid seen. Right ovary not seen. Normal left ovary. Electronically signed by: Danelle Luna MD 03/10/2025 04:41 PM EDT
--- OUTSIDE RECORDS SUMMARY | 2025-03-10 16:51 | XMS_ITS | Encounter Summary ---
Author Organization [facility] Address [address] [place] [address] Phone Care Team Providers Care Hem Marker Name Role Phone Gina Mora NP Primary Care Provider [phone] Encounter Details Date Type Department Care Team (Late st Contact Info) Description 01/20/2025 Documentation Only [facility] [place], [address] [place] [address] Debra Rhodes [address] [place] [phone] Social History Tobacco Use Types [...] Care Team (Late st Contact Info) Description 08/10/2025 3:00 PM EST Office Visit [facility] [address] [phone] Ibeth Huntley DO [address] [place] [phone] documented as of this encounter Visit Diagnoses Not on filedocumented in this encounter Care Teams Hem Marker Relationship Specialty Start Date End Date Gina Mora NP [address] [place] [address] PCP - General Family Medicine 02/08/25 documented as of this encounter
--- OUTSIDE RECORDS SUMMARY | 2025-03-10 16:51 | XMS_ITS | Encounter Summary ---
Author Organization [facility] Address [address] [place] [address] Phone Care Team Providers Care Rent And Miscellaneous Remittance Clerk Name Role Phone Gina Mora NP Primary Care Provider [phone] Encounter Details Date Type Department Care Team (Late st Contact Info) Description 01/20/2025 Documentation Only [facility] [place], [address] [place] [address] Debra Rhodes [address] [place] [phone] Social History Tobacco Use Types [...] Visit [facility] [address] [phone] Ibeth Huntley DO [address] [place] [address] [phone] documented as of this encounter Visit Diagnoses Not on filedocumented in this encounter Care Teams Rent And Miscellaneous Remittance Clerk Relationship Specialty Start Date End Date Gina Mora NP [address] [place] [address] PCP - General Family Medicine 02/08/25 documented as of this encounter
--- OUTSIDE RECORDS SUMMARY | 2025-03-10 16:51 | XMS_ITS | Clinical Summary ---
Author Organization [facility] Address [address] [place] [phone] Phone Care Team Providers Care Floor Molder Name Role Phone Gina Mora NP Primary Care Provider [phone] Allergies Active Allergy Reactions Criticality Noted Date [...] mg by mouth in the morning. Active zaleplon (SONATA) 5 MG capsule Take 5 mg by mouth every night Active Active Problems Problem Noted Date Diagnosed Date Stage 3a chronic kidney disease 02/02/2025 Resolved Problems Problem Noted Date Diagnosed Date Resolved Date Cervical high risk human pap illomavirus (HPV) DNA test positive 02/02/2025 02/02/2025 Cervical atypism 02/02/2025 02/02/2025 Depressive disorder 02/02/2025 02/03/20 25 Obese class II 02/02/2025 02/02/2025 Vitamin D deficiency 02/02/2025 025 Female stress incontinence 03/11/2024 0 02/02/2025 Overview [...] Overview (02/02/2025): Followed by Dr. King - [facility] TELE[employer]ICATIONS SALES REPRESENTATIVE 03/29 Cervical biopsy MADHAV 1 07/22/23: Pap ASCUS HPV + 09/13/23: Colposcopy results MADHAV 1 10/03/23: LEEP w/ results CIN1 Plan: co-testing in 1 year, scheduled 07/27/24 Anxiety 12/27/2022 02/02/2025 Bipolar affective disorder, current episode mixed 12/27/2022 02/02/2025 Insomnia due to other mental disorder 12/27/2022 02/02/2025 Anemia 06/04/2022 02/08/2025 Gastroesophageal reflux disease 06/04/2022 02/02/2025 Overview (02/02/2025): Continues famotidine 40mg BID PRN Irritable bowel syndrome with constipation 08/02/2016 02/02/2025 Sj gren's syndrome 09/01/2014 02/02/2025 Hypothyroidism 09/07/2013 02/02/2025 Overview (02/02/2025): Continues levothyroxine 75mcg daily Lab Results Component Value Date TSH 1.05 02/23/2024 Schizoaffective disorder 09/07/2013 Bipolar disorder 10/07/2012 02/02/2025 Post-traumatic stress disorder 10/07/2012 02/02/2025 Encounters Date Type Department Care Team Description 02/08/2025 3:30 PM EDT [facility] Visit [facility] [address] [phone] bIeth Huntley DO Stage 3a chronic kidney disease (HCC) (Primary Dx) 01/20/2025 Documentation Only [facility] [address] [place] [phone] Debra Rhodes 01/20/2025 Documentation Only [facility] [address] [place] [address] Debra Rhodes from Last 3 Months Immunizations Immunization Administration Dates Next Due PPD Test 04/23/2019 Shingrix 01/13/2023,11/11/2022 Td, Unspecified 09/11/2010,11/08/2003 Tdap 01/05/2021 Social History Tobacco Use Types Packs/Day Years Used Date Smoking Tobacco: Never Tobacco Cessation:Counseling Given: Not Answered Comments Unknown Sex and Gender Information Value Date Recorded Sex Assigned at Not on file Legal Sex Female 4:11 PM EDT Gender Identity Not on file Sexual Orientation Not on file Last Filed Vital Signs Vital Sign Reading Time Taken Comments Blood Pressure 110/70 02/08/2025 11:29 AM EDT Pulse - - Temperature - - Respiratory Rate - - Oxygen Saturation - - Inhaled Oxygen Concentration - - Weight - - Height - - Body Mass Index - - Plan of Treatment Upcoming Encounters Date Type Department Care Team (Late st Contact Info) Description 08/10/2025 3:00 PM EST Office Visit [facility] [address] [phone] Ibeth Huntley DO [address] [place] [phone] Health Maintenance Due Date Last Done Comments Breast Cancer Screening 1970 Hepatitis B Vaccine (1 of 3 - 19+ 3-dose series) 08/17 Pneumococcal Vaccine: 50+ Years (1 of 2 - PCV) 992 Colorectal Cancer Screening: Annual FOBT 2021 Colorectal Cancer Screening: Colonoscopy 2021 Colorectal Cancer Screening: Sigmoidoscopy 2021 Influenza Vaccine (#1) 2025 Insurance Medicaid [place] Care Teams Floor Molder Relationship Specialty Start Date End Date Gina Mora NP [address] [place] [address] PCP - General Family Medicine 02/08/25
== END 2025-03-10 15:50 | disposition home or self-care (01) ==
LOC: HO.US 15:49
PROVIDERS: Visit Provider Obstetrics & Gynecology
DX: N92.0 Excessive and frequent menstruation with regular cycle (principal)
CPT/HCPCS: 76830; 76856

== ENCOUNTER → 2025-03-10 15:53 | Outpatient (BNV) | payer MEDICAID, SELFPAY | PROVIDERS: Visit Provider Radiology Diagnostic Radiology | DX: R93.89 Abnormal findings on diagnostic imaging of other specified body structures (principal); N95.0 Postmenopausal bleeding | CPT/HCPCS: 76830; 76856 ==

== ENCOUNTER 2025-04-07 08:30 | Outpatient (AMB) | payer MEDICAID, SELFPAY ==
--- OUTSIDE RECORDS SUMMARY | 2025-04-06 15:00 | XMS_ITS | Encounter Summary ---
Author Organization [employer] Address [address] [place] [address] 7 [place] [address] Care Team Providers Care Nursery Teacher Name Role Phone Tre King MD Unavailable Karla Cazares NP Primary Care Provider [phone] [email or web address] Unavailable Reason for Visit * Reason Comments Immunizations Encounter Details Date Type Department Care Team (Late st Contact Info) Description 04/06/2025 3:00 PM EDT Immunization [facility] [address] [place] [phone] Claire Crawford LPN Need for vaccination Social History Tobacco Use Types Packs/Day Years [...] AM EDT documented as of this encounter Progress Notes * Claire Crawford LPN - 04/06/2025 3:00 PM EDT Patient is in clinic today for vaccination. Patient is due for Hep B and Covid vaccine(s) today. Patient/Parent/Guardian consenting to receive the following vaccine(s) Covid and Hep B. VIS and proper paperwork given. Patient sat for injection and did tolerate vaccine well. Advised on common side effects from vaccine and home care post injection. Plan Patient to follow up with nursing in 1 month for next Hep B vaccine. Information given about futurevaccine scheduling. Patient to schedule next visit with law firm receptionist. Encouraged to call clinic with questions or concerns. documented in this encounter Plan of Treatment Upcoming Encounters Date Type Department Care Team (Late st Contact Info) Description 05/13/2025 2:00 PM EST Office Visit [address] [phone] Karla Cazares NP [address] [place] [address] 06/24/2025 2:20 PM EST Office Visit [address] [phone] Karla Cazares NP [address] [place] [address] documented as of this encounter Visit Diagnoses Diagnosis Need for vaccination Need for prophylactic vaccination and inoculation against unspecified single disease documented in this encounter Additional Health Concerns Assessment Noted Time PHQ-9 Depression Total Score: 15 025 3:36 PM EDT documented as of this encounter Care Teams Nursery Teacher Relationship Specialty Start Date End Date Karla Cazares NP [address] [place] [address] PCP - General Family Medicine 11/16/24 Tre King MD [address] [place] [address] [place] [address] Obstetrics and Gynecology 04/25/24 Jeannette Taveras 03/18/25 documented as of this encounter
--- NOTE | 2025-04-07 08:34 | A.OFFVIS_ITS ---
Intake Visit Reasons: us follow up/post colpo/post emb Allergies Sulfa (Sulfonamide Antibiotics) (SULFA (SULFONAMIDE ANTIBIOTICS)) Allergy (Unknown, Verified 03/10/25 15:10) UNKNOWN HPI Comments Details: Presenting for follow-up. 03/10/2025 pelvic ultrasound showed the following: Uterus: The uterus is anteverted and measures 7.2 x 3.1 x 3.3 cm. Endometrial thickness measures 1.1 cm which is increased for a postmenopausal patient. No fluid seen in the endometrial canal. The uterus is smooth in contour and has normal myometrial echogenicity. No visible fibroid. Adnexa: Right ovary is not seen. Left ovary measures 2 x 1.7 x 1.5 cm. No pelvic fluid. US/US pelvic and transvaginal IMPRESSION: Abnormally thickened endometrium measuring 1.1 cm. How much of this is related to recent endometrial biopsy is uncertain. No endometrial fluid seen. Right ovary not seen. Normal left ovary. Co testing negative/HPV positive, HPV 16/18 negative Pathology for cervical biopsy/ECC and endometrial biopsy showed the following: A. Endometrium, biopsy: - Inactive endometrium; no atypia or hyperplasia identified. - Rare endocervical epithelium within normal limits; no atypia identified. B. Cervix, 6 o'clock, biopsy: Squamous mucosa within normal limits; no endocervical epithelium identified. C. Cervix, 7 o'clock, biopsy: Squamous mucosa within normal limits; no endocervical epithelium identified. D. Cervix, 1 o'clock, biopsy: Squamous mucosa within normal limits; no endocervical epithelium identified. E. Endocervix, curettage: Superficial fragments of endocervical mucosa and squamous epithelium within normal limits; no atypia identified [facility] Medical History ASCUS with positive high risk HPV cervical Sjogren syndrome with central nervous system involvement Hypothyroidism PTSD (post-traumatic stress disorder) Schizoaffective disorder Surgical History Hx of eye surgery Hx of straightening of nasal septum Social History Patient Tobacco Use Status: Never used Tobacco Substance Use Type: Marijuana Female Reproductive History Menstrual Age of Menarche: 16 Review of Systems Const All systems reviewed & are unremarkable except as noted in HPI and below Reports as per HPI and Reports no additional complaints GI Reports no additional complaints Reports no additional complaints Assessment & Plan Assessment & Plan (1) HPV (human papilloma virus) infection: Code(s): B97.7 - Papillomavirus as the cause of diseases classified elsewhere Category: Medical Plan: Discussed with the patient the pathology results of the colposcopy biopsies & endocervical curettage (negative). Discussed with the patient the sensitivity specificity, positive and negative predictive value in detecting cervical cancer in addition discussed the regression, persistence and progression rates. Recommended co-testing in 12 months, if cytology and or HPV are abnormal will proceed was colposcopy biopsy and endocervical curettage, if lesions gets worse or stays persistent for 2 years will proceed with loop electric excision procedure. Instructions given to the patient to schedule a co test appointment in 1 year. All questions answered the patient verbalized understanding. (2) Postmenopausal bleeding: Code(s): N95.0 - Postmenopausal bleeding Category: Medical Plan: Discussed with the patient the results of the endometrial biopsy. Discussed with the patient the sensitivity, specificity, positive and negative predictive value, of endometrial biopsy in detecting endometrial pathology including but not limited to endometrial hyperplasia, cancer and other pathology; instructed the patient to call in case vaginal bleeding recurs, the next step will be to proceed with a diagnostic hysteroscopy/D&C for further endometrial sampling evaluation to rule out endometrial pathology. All questions answered and the patient verbalized understanding and agreed with the plan. Coding Level of Care Code Est Pt Level 3 (21474) Diagnoses HPV (human papilloma virus) infection B97.7 Postmenopausal bleeding N95.0
--- OUTSIDE RECORDS SUMMARY | 2025-04-07 09:10 | XMS_ITS | Encounter Summary ---
Author Organization [employer] Address [address] [place] [address] 7 [place] [address] Care Team Providers Care Materials And Corrosion Engineer Name Role Phone Tre King MD Unavailable Karla Cazares NP Primary Care Provider [phone] paolaSeptember Unavailable Encounter Details Date Type Department Care Team (Latest Contact Info) Description 02/28/2025 Results Follow-Up [facility] [address] [place] [phone] Karla Cazares NP 102 [place] [address] TSH with Reflex to Free T4, Comprehensive [...] Description 05/13/2025 2:00 PM EST Office Visit [address] [phone] Karla Cazares NP 102 [place] [address] 06/24/2025 2:20 PM EST Office Visit [facility] [address] [place] [phone] Karla Cazares NP [address] [place] [address] documented as of this encounter Visit Diagnoses Not on filedocumented in this encounter Additional Health Concerns Assessment Noted Time PHQ-9 Depression Total Score: 15 025 3:36 PM EDT documented as of this encounter Care Teams Materials And Corrosion Engineer Relationship Specialty Start Date End Date Karla Cazares NP [address] [place] [address] PCP - General Family Medicine 11/16/24 Tre King MD [address] [place] [address] Obstetrics and Gynecology 04/25/24 Jeannette Taveras 03/18/25 documented as of this encounter
--- OUTSIDE RECORDS SUMMARY | 2025-04-07 09:10 | XMS_ITS | Encounter Summary ---
Author Organization [employer] Address [address] [facility] [address] 7t [place] [address] Care Team Providers Care Composition Stone Applicator Name Role Phone Tre King MD Unavailable Karla Cazares NP Primary Care Provider [phone] sujitseptember Unavailable Reason for Visit * Reason Comments Med Refill Encounter Details Date Type Department Care Team (Late st Contact Info) Description 02/10/2025 Refill [facility] [address] [place] [address] Mitzi Duffy FNP 505 [place] [address] Other specified hypothyroidism; Sjogren's syndrome, with unspecified [...] Description 05/13/2025 2:00 PM EST Office Visit [address] [phone] Karla Cazares NP [address] [place] [address] 06/24/2025 2:20 PM EST Office Visit [address] [phone] Karla Cazares NP [address] [place] [address] documented as of this encounter Visit Diagnoses Diagnosis Other specified hypothyroidism Sjogren's syndrome, with unspecified organ involvement (CMS/HCC) documented in this encounter Additional Health Concerns Assessment Noted Time PHQ-9 Depression Total Score: 15 025 3:36 PM EDT documented as of this encounter Care Teams Composition Stone Applicator Relationship Specialty Start Date End Date Karla Cazares NP [address] [place] [address] PCP - General Family Medicine 11/16/24 Tre King MD [address] [place] [address] Obstetrics and Gynecology 04/25/24 Jeannette Taveras 03/18/25 documented as of this encounter
--- OUTSIDE RECORDS SUMMARY | 2025-04-07 09:10 | XMS_ITS | Encounter Summary ---
Author Organization [employer] Address 75 [facility] 7t [place] [address] Care Team Providers Care Bi Technical Lead Name Role Phone Tre King MD Unavailable Karla Cazares NP Primary Care Provider [phone] NitinSeptember Unavailable Encounter Details Date Type Department Care Team ([facility] st Contact Info) Description 01/12/[address] [place] [address] Karla Cazares NP [address] [place] [address] Social History Tobacco Use Types Packs/Day Years [...] Please call back and advise. Call back [phone] documented in this encounter Plan of Treatment Upcoming Encounters Date Type Department Care Team (Late st Contact Info) Description 05/13/2025 2:00 PM EST Office Visit [address] [phone] Karla Cazares NP [address] [place] [address] 06/24/2025 2:20 PM EST Office Visit [address] [phone] Karla Cazares NP [address] [place] [address] documented as of this encounter Visit Diagnoses Not on filedocumented in this encounter Additional Health Concerns Assessment Noted Time PHQ-9 Depression Total Score: 15 025 3:36 PM EDT documented as of this encounter Care Teams Bi Technical Lead Relationship Specialty Start Date End Date Karla Cazares NP [address] [place] [address] PCP - General Family Medicine 11/16/24 Tre King MD [address] [place] [address] Obstetrics and Gynecology 04/25/24 Boivgerson, September 03/18/25 documented as of this encounter
--- OUTSIDE RECORDS SUMMARY | 2025-04-07 09:10 | XMS_ITS | Encounter Summary ---
Author Organization [employer] Address [address] [facility] [address] 7t [place] [address] Care Team Providers Care Refrigeration Service Technician Name Role Phone Mitzi Duffy Primary Care Provider [phone] Tre King MD Unavailable Karla Cazares NP Primary Care Provider [phone] sujitseptember Unavailable Reason for Visit * Reason Onset Date Comments Call back Request 03/19/2024 Encounter Details Date Type Department Care Team (Late st Contact Info) Description 03/19/2024 Telephone [facility] [address] [place] [address] Mitzi Duffy FNP [address] [place], [place] [phone] Call back Request Social History Tobacco Use [...] back, please see notes. Please contact at [phone] * Telephone Encounter - Brett Lindo - 03/19/2024 4:29 PM EDT Tc from pt requesting call back regarding incontinence medication. Please contact pt at [phone]. documented in this encounter Plan of Treatment Upcoming Encounters Date Type Department Care Team (Late st Contact Info) Description 05/13/2025 2:00 PM EST Office Visit [address] [phone] Karla Cazares NP [address] [place] [address] 06/24/2025 2:20 PM EST Office Visit [address] [phone] Karla Cazares NP [address] [place] [address] documented as of this encounter Visit Diagnoses Not on filedocumented in this encounter Additional Health Concerns Assessment Noted Time PHQ-9 Depression Total Score: 0 12/24/19 24 11:34 AM EDT documented as of this encounter Care Teams Refrigeration Service Technician Relationship Specialty Start Date End Date Mitzi Duffy FNP [address] [place] [address] PCP - General Family Medicine 02/05/22 11/15/24 Karla Cazares NP [address] [place] [address] PCP - General Family Medicine 11/16/24 Tre King MD [address] [place] [address] Obstetrics and Gynecology 04/25/24 NitinSeptember 03/18/25 documented as of this encounter
--- OUTSIDE RECORDS SUMMARY | 2025-04-07 09:10 | XMS_ITS | Encounter Summary ---
Author Organization [employer] Address 75 [facility] 7t [place] [address] Care Team Providers Care Appellate Conferee Name Role Phone Tre King MD Unavailable Karla Cazares NP Primary Care Provider [phone] NitinSeptember Unavailable Encounter Details Date Type Department Care Team ([facility] st Contact Info) Description 01/12/[address] [place] [address] Karla Cazares NP [address] [place] [address] Social History Tobacco Use Types Packs/Day Years [...] or be seen. Please advise. Call back [phone] documented in this encounter Plan of Treatment Upcoming Encounters Date Type Department Care Team (Late st Contact Info) Description 05/13/2025 2:00 PM EST Office Visit [address] [phone] Karla Cazares NP [address] [place] [address] 06/24/2025 2:20 PM EST Office Visit [address] [phone] Karla Cazares NP [address] [place] [address] documented as of this encounter Visit Diagnoses Not on filedocumented in this encounter Additional Health Concerns Assessment Noted Time PHQ-9 Depression Total Score: 15 025 3:36 PM EDT documented as of this encounter Care Teams Appellate Conferee Relationship Specialty Start Date End Date Karla Cazares NP [address] [place] [address] PCP - General Family Medicine 11/16/24 Tre King MD [address] [place] [address] [place] [address] Obstetrics and Gynecology 04/25/24 Jeannette Taveras 03/18/25 documented as of this encounter
--- OUTSIDE RECORDS SUMMARY | 2025-04-07 09:10 | XMS_ITS | Encounter Summary ---
Author Organization [employer] Address [address] [place] [address] 7 [place] [address] Care Team Providers Care Line Palletizer Name Role Phone Tre King MD Unavailable Karla Cazares NP Primary Care Provider [phone] NitinSeptember Unavailable Encounter Details Date Type Department Care Team ([facility] Contact Info) Description 02/23/2025 Results Follow-Up [facility] [address] [place] [phone] Karla Cazares NP [address] [place] [address] SureSwab Advanced Vaginitis Plus, TMA, Urinalysis, Complete, [...] Description 05/13/2025 2:00 PM EST Office Visit [address] [phone] Karla Cazares NP [address] [place] [address] 06/24/2025 2:20 PM EST Office Visit [address] [phone] Karla Cazares NP [address] [place] [address] documented as of this encounter Visit Diagnoses Not on filedocumented in this encounter Additional Health Concerns Assessment Noted Time PHQ-9 Depression Total Score: 15 025 3:36 PM EDT documented as of this encounter Care Teams Line Palletizer Relationship Specialty Start Date End Date Karla Cazares NP [address] [place] [address] PCP - General Family Medicine 11/16/24 Tre King MD [address] [place] [address] Obstetrics and Gynecology 04/25/24 Jeannette Taveras 03/18/25 documented as of this encounter
--- OUTSIDE RECORDS SUMMARY | 2025-04-07 09:10 | XMS_ITS | Encounter Summary ---
Author Organization [email or web address] Address [address] [place] [address] 7 [place] [address] Care Team Providers Care Bridge Game Director Name Role Phone Mitzi Duffy Primary Care Provider [phone] Tre King MD Unavailable Karla Cazares NP Primary Care Provider [phone] sujitseptember Unavailable Reason for Visit * Reason Comments Med Refill Encounter Details Date Type Department Care Team ([facility] st Contact Info) Description 02/05/2024 Refill [facility] 505 [place] [address] Sheldon Martinez MD 505 [place] [address] Social History Tobacco Use Types Packs/Day Years [...] 05/13/2025 2:00 PM EST Office Visit [address] [phone] Karla Cazares NP [address] [place] [address] 06/24/2025 2:20 PM EST Office Visit [address] [phone] Karla Cazares NP [address] [place] [address] documented as of this encounter Visit Diagnoses Not on filedocumented in this encounter Additional Health Concerns Assessment Noted Time PHQ-9 Depression Total Score: 0 12/24/19 24 11:34 AM EDT documented as of this encounter Care Teams Bridge Game Director Relationship Specialty Start Date End Date Mitzi Duffy FNP 230 [place] [address] PCP - General Family Medicine 02/05/22 11/15/24 Karla Cazares NP [address] [place] [address] PCP - General Family Medicine 11/16/24 Tre King MD [address] [place] [address] Obstetrics and Gynecology 04/25/24 NitinSeptember 03/18/25 documented as of this encounter
--- OUTSIDE RECORDS SUMMARY | 2025-04-07 09:10 | XMS_ITS | Encounter Summary ---
Author Organization [employer] Address [address] [place] [address] 7 [place] [address] Care Team Providers Care Wellness Consultant Name Role Phone Mitzi Duffy Primary Care Provider [phone] Tre King MD Unavailable Karla Cazares NP Primary Care Provider [phone] paolaSeptember Unavailable Reason for Visit * Reason Onset Date Comments Letter for Medication 02/12/2023 Encounter Details Date Type Department Care Team (Late st Contact Info) Description 02/12/2023 Telephone [facility] 230 [place] [address] Mitzi Duffy FNP 505 [place] [address] Letter for Medication Social History Tobacco Use [...] - 02/12/2023 4:25 PM EDT T/C to [phone] for below message, No answer. Not able to LVM. * Telephone Encounter - Sierra Reynoso - 02/12/2023 4:00 PM EDT Tc from lakshmi nurse from day program requesting a verbal order until PCP signs and fax back order. Please contact kay at [phone] * Telephone Encounter - Jeanette Brandt RN - 02/12/2023 3:40 PM EDT T/C to [phone] for below message, Nurse was informed that generally this type of documents goes to medical records and then they brings to provider. Nurse states she already spoke with medical records and they tole her it might take 7-10 days, but pt. Had eye surgery and Nurse is looking for KM. Card Filer RN called to medical records, spoke with [...] 24 hr . Please call to clarify [phone]. * Telephone Encounter - Joseph Kimbrough - 02/12/2023 1:47 PM EDT Tc from pt requesting a letter from provider in regards to medication for dextran 70-hypromellose (artificial tears) 0.1-0.3 % ophthalmic solution. Pt states that letter needs to provide of how medication needs to be administer and dosage as well. Pt stated that Day program ( [facility] ) that they have sent a request over. Please contact pt at [phone] documented in this encounter Plan of Treatment Upcoming Encounters Date Type Department Care Team (Late st Contact Info) Description 05/13/2025 2:00 PM EST Office Visit [address] [phone] Karla Cazares NP [address] [place] [address] 06/24/2025 2:20 PM EST Office Visit [address] [phone] Karla Cazares NP [address] [place] [address] documented as of this encounter Visit Diagnoses Not on filedocumented in this encounter Additional Health Concerns Assessment Noted Time PHQ-9 Depression Total Score: 0 06/04/20 22 3:05 PM EST documented as of this encounter Care Teams Wellness Consultant Relationship Specialty Start Date End Date Mitzi Duffy FNP [address] [place] [address] PCP - General Family Medicine 02/05/22 11/15/24 Karla Cazares NP [address] [place] [address] PCP - General Family Medicine 11/16/24 Tre King MD [address] [place] [address] Obstetrics and Gynecology 04/25/24 Baoin, September 03/18/25 documented as of this encounter
--- OUTSIDE RECORDS SUMMARY | 2025-04-07 09:10 | XMS_ITS | Encounter Summary ---
Author Organization [employer] Address [address] [facility] [address] 7t [place] [address] Care Team Providers Care Business Segment Manager Name Role Phone Mitzi Duffy Primary Care Provider [phone] Tre King MD Unavailable Karla Cazares NP Primary Care Provider [phone] sujitseptember Unavailable Reason for Visit * Reason Onset Date Comments Medication Question 03/04/2024 Encounter Details Date Type Department Care Team (Late st Contact Info) Description 03/04/2024 Telephone [facility] 230 [place] [address] Mitzi Duffy FNP [address] [place], [place] [phone] Medication Question Social History Tobacco Use Types [...] pt returning 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 * Telephone Encounter - Brett Lindo - 03/04/2024 11:02 AM EDT Tc from pt calling to request Refresh Optive no preservatives oil. Pt stated she was advised by specialist to contact pcp and request medication. If any questions please contact pt at [phone]. documented in this encounter Plan of Treatment Upcoming Encounters Date Type Department Care Team (Late st Contact Info) Description 05/13/2025 2:00 PM EST Office Visit [address] [phone] Karla Cazares NP [address] [place] [address] 06/24/2025 2:20 PM EST Office Visit [address] [phone] Karla Cazares NP [address] [place] [address] documented as of this encounter Visit Diagnoses Not on filedocumented in this encounter Additional Health Concerns Assessment Noted Time PHQ-9 Depression Total Score: 0 12/24/19 11:34 AM EDT documented as of this encounter Care Teams Business Segment Manager Relationship Specialty Start Date End Date Mitzi Duffy FNP [address] [place] [address] PCP - General Family Medicine 02/05/22 11/15/24 Karla Cazares NP [address] [place] [address] PCP - General Family Medicine 11/16/24 Tre King MD [address] [place] [address] Obstetrics and Gynecology 04/25/24 Jeannette Taveras 03/18/25 documented as of this encounter
--- OUTSIDE RECORDS SUMMARY | 2025-04-07 09:10 | XMS_ITS | Encounter Summary ---
Author Organization [employer] Address [address] [place] [address] [place] [address] Care Team Providers Care Sales Director Name Role Phone Tre King MD Unavailable Karla Cazares NP Primary Care Provider [phone] NitinSeptember Unavailable Encounter Details Date Type Department Care Team ([facility] Contact Info) Description 12/28/2024 Telephone [facility] [address] [place] [address] Karla Cazares NP 102 [place] [address] Social History Tobacco Use Types Packs/Day Years [...] with others, in a hotel, in a skilled nursing, living outside on the street, on a [...] Not at all 12/28/2024 1:30 PM EDT Znadra Emery Patient Health Questionnaire -2 Score 1 [...] Faxed last office note over to the [facility] with [facility]. . * Telephone Encounter - Yeni Hernandez - 12/28/2024 10:09 AM EDT Patient is requesting after office notes from physical are done today please send them to the [facility] in [facility] documented in this encounter Plan of Treatment Upcoming Encounters Date Type Department Care Team (Late st Contact Info) Description 05/13/2025 2:00 PM EST Office Visit [address] [phone] Karla Cazares NP [address] [place] [address] 06/24/2025 2:20 PM EST Office Visit [address] [phone] Karla Cazares NP [address] [place] [address] documented as of this encounter Visit Diagnoses Not on filedocumented in this encounter Additional Health Concerns Assessment Noted Time PHQ-9 Depression Total Score: 15 025 3:36 PM EDT documented as of this encounter Care Teams Sales Director Relationship Specialty Start Date End Date Karla Cazares NP [address] [place] [address] PCP - General Family Medicine 11/16/24 Tre King MD [address] [place] [address] Obstetrics and Gynecology 04/25/24 Nitin, September 03/18/25 documented as of this encounter
--- OUTSIDE RECORDS SUMMARY | 2025-04-07 09:10 | XMS_ITS | Encounter Summary ---
Author Organization [employer] Address [address] [place] [address] 7 [place] [address] Care Team Providers Care Pantry Steward/Stewardess Name Role Phone Tre King MD Unavailable Karla Cazares NP Primary Care Provider [phone] paolaSeptember Unavailable Encounter Details Date Type Department Care Team ([facility] st Contact Info) Description 12/28/2024 Orders Only [facility] [address] [place] [phone] Adelso Iverson AGNP [address] [place] [address] Social History Tobacco Use Types Packs/Day Years [...] with others, in a hotel, in a group home, living outside on the street, on [...] Description 05/13/2025 2:00 PM EST Office Visit [address] [phone] Karla Cazares NP [address] [place] [address] 06/24/2025 2:20 PM EST Office Visit [address] [phone] Karla Cazares NP [address] [place] [address] documented as of this encounter Visit Diagnoses Not on filedocumented in this encounter Additional Health Concerns Assessment Noted Time PHQ-9 Depression Total Score: 15 025 3:36 PM EDT documented as of this encounter Care Teams Pantry Steward/Stewardess Relationship Specialty Start Date End Date Karla Cazares NP [address] [place] [address] PCP - General Family Medicine 11/16/24 Tre King MD [address] [place] [address] Obstetrics and Gynecology 04/25/24 Jeannette Taveras 03/18/25 documented as of this encounter
--- OUTSIDE RECORDS SUMMARY | 2025-04-07 09:10 | XMS_ITS | Encounter Summary ---
Author Organization [employer] Address [address] 7t [place] [address] Care Team Providers Care Supervisor Malt House Name Role Phone Tre King MD Unavailable Karla Cazares NP Primary Care Provider [phone] sujitseptember Unavailable Reason for Visit * Reason Comments Med Refill Encounter Details Date Type Department Care Team (Late st Contact Info) Description 02/23/2025 Refill [facility] 230 [place] [address] Mitzi Duffy FNP 505 [place] [address] Other specified hypothyroidism Social History Tobacco Use [...] Description 05/13/2025 2:00 PM EST Office Visit [address] [phone] Karla Cazares NP 102 [place] [address] 06/24/2025 2:20 PM EST Office Visit [facility] [address] [place] [phone] Karla Cazares NP [address] [place] [address] documented as of this encounter Visit Diagnoses Diagnosis Other specified hypothyroidism documented in this encounter Additional Health Concerns Assessment Noted Time PHQ-9 Depression Total Score: 15 025 3:36 PM EDT documented as of this encounter Care Teams Supervisor Malt House Relationship Specialty Start Date End Date Karla Cazares NP [address] [place] [address] PCP - General Family Medicine 11/16/24 Tre King MD [address] [place] [address] Obstetrics and Gynecology 04/25/24 Jeannette Taveras 03/18/25 documented as of this encounter
--- OUTSIDE RECORDS SUMMARY | 2025-04-07 09:10 | XMS_ITS | Encounter Summary ---
Author Organization [employer] Address [address] 7t [place] [address] Care Team Providers Care Show Jumping Instructor Name Role Phone Tre King MD Unavailable aKrla Cazares NP Primary Care Provider [phone] paolaSeptember Unavailable Reason for Visit * Reason Comments Med Refill Encounter Details Date Type Department Care Team (Late st Contact Info) Description 02/25/2025 Refill [facility] 230 [place] [address] Mitzi Duffy FNP [address] [place] [address] Social History Tobacco Use Types Packs/Day Years [...] Description 05/13/2025 2:00 PM EST Office Visit [address] [phone] Karla Cazares NP 102 [place] [address] 06/24/2025 2:20 PM EST Office Visit [facility] [address] [place] [phone] Karla Cazares NP [address] [place] [address] documented as of this encounter Visit Diagnoses Not on filedocumented in this encounter Additional Health Concerns Assessment Noted Time PHQ-9 Depression Total Score: 15 025 3:36 PM EDT documented as of this encounter Care Teams Show Jumping Instructor Relationship Specialty Start Date End Date Karla Cazares NP [address] [place] [address] PCP - General Family Medicine 11/16/24 Tre King MD [address] [place] [address] Obstetrics and Gynecology 04/25/24 Jeannette Taveras 03/18/25 documented as of this encounter
--- OUTSIDE RECORDS SUMMARY | 2025-04-07 09:10 | XMS_ITS | Encounter Summary ---
Author Organization [employer] Address [address] [place] [address] 7t [place] [address] Care Team Providers Care Manager Drilling Name Role Phone Tre King MD Unavailable Karla Cazares NP Primary Care Provider [phone] sujitseptember Unavailable Reason for Visit * Reason Comments Med Refill Encounter Details Date Type Department Care Team ([facility] st Contact Info) Description 12/30/2024 Refill [facility] [address] [place], [place] [phone] Mitzi Duffy FNP 505 [place] [address] Sjogren's syndrome, with unspecified organ involvement (CMS/HCC) [...] with others, in a hotel, in a long-term, living outside on the street, on a [...] Description 05/13/2025 2:00 PM EST Office Visit [address] [phone] Karla Cazares NP [address] [place] [address] 06/24/2025 2:20 PM EST Office Visit [address] [phone] Karla Cazares NP [address] [place] [address] documented as of this encounter Visit Diagnoses Diagnosis Sjogren's syndrome, with unspecified organ involvement (CMS/HCC) documented in this encounter Additional Health Concerns Assessment Noted Time PHQ-9 Depression Total Score: 15 12/13/ 025 3:36 PM EDT documented as of this encounter Care Teams Manager Drilling Relationship Specialty Start Date End Date Karla Cazares NP [address] [place] [address] PCP - General Family Medicine 11/16/24 Tre King MD [address] [place] [address] Obstetrics and Gynecology 04/25/24 Nitin Jeannette 03/18/25 documented as of this encounter
--- OUTSIDE RECORDS SUMMARY | 2025-04-07 09:11 | XMS_ITS | Encounter Summary ---
Author Organization [employer] Address [address] [place] [address] 7 [place] [address] Care Team Providers Care Boiler Control Technician Name Role Phone Mitzi Duffy Primary Care Provider [phone] Tre King MD Unavailable Karla Cazares NP Primary Care Provider [phone] NitinSeptember Unavailable Encounter Details Date Type Department Care Team (Late st Contact Info) Description 06/29/2024 Telephone [facility] [address] [place] [address] Mitzi Duffy FNP 505 [place], [place] [phone] Social History Tobacco Use Types Packs/Day Years [...] with others, in a hotel, in a custodial, living outside on the street, on a [...] AM EDT Sexual Orientation Don't know 03/21/2023 9 :52 AM EDT documented as of this encounter Plan of Treatment Upcoming Encounters Date Type Department Care Team (Late st Contact Info) Description 05/13/2025 2:00 PM EST Office Visit [address] [phone] Karla Cazares NP [address] [place] [address] 06/24/2025 2:20 PM EST Office Visit [address] [phone] Karla Cazares NP [address] [place] [address] documented as of this encounter Visit Diagnoses Not on filedocumented in this encounter Additional Health Concerns Assessment Noted Time PHQ-9 Depression Total Score: 0 12/24/19 24 11:34 AM EDT documented as of this encounter Care Teams Boiler Control Technician Relationship Specialty Start Date End Date Mitzi Duffy FNP [address] [place] [address] PCP - General Family Medicine 02/05/22 11/15/24 Karla Cazares NP [address] [place] [address] PCP - General Family Medicine 11/16/24 Tre King MD [address] [place] [address] Obstetrics and Gynecology 04/25/24 Jeannette Taveras 03/18/25 documented as of this encounter
--- OUTSIDE RECORDS SUMMARY | 2025-04-07 09:11 | XMS_ITS | Encounter Summary ---
Author Organization [employer] Address [address] [place] [address] 7 [place] [address] Care Team Providers Care Computer Game Programmer Name Role Phone Tre King MD Unavailable Karla Cazares NP Primary Care Provider [phone] paolaSeptember Unavailable Encounter Details Date Type Department Care Team ([facility] Contact Info) Description 02/04/2025 Telephone [facility] [address] [place] [phone] Karla Cazares NP 102 [place] [address] Social History Tobacco Use Types Packs/Day Years [...] - 02/08/2025 2:00 PM EDT Faxed to [facility] * Telephone Encounter - Michelle Lambert - 02/04/2025 10:22 AM EDT Pt. Called and asked for an updated medication list be sent to the [facility] at [address] . Call back # [phone] documented in this encounter Plan of Treatment Upcoming Encounters Date Type Department Care Team (Late st Contact Info) Description 05/13/2025 2:00 PM EST Office Visit [address] [phone] Karla Cazares NP [address] [place] [address] 06/24/2025 2:20 PM EST Office Visit [address] [phone] Karla Cazares NP [address] [place] [address] documented as of this encounter Visit Diagnoses Not on filedocumented in this encounter Additional Health Concerns Assessment Noted Time PHQ-9 Depression Total Score: 15 025 3:36 PM EDT documented as of this encounter Care Teams Computer Game Programmer Relationship Specialty Start Date End Date Karla Cazares NP [address] [place] [address] PCP - General Family Medicine 11/16/24 Tre King MD [address] [place] [address] [place] [address] Obstetrics and Gynecology 04/25/24 Jeannette Taveras 03/18/25 documented as of this encounter
--- OUTSIDE RECORDS SUMMARY | 2025-04-07 09:11 | XMS_ITS | Encounter Summary ---
Author Organization [employer] Address [address] [place] [address] [place] [address] Care Team Providers Care Test Car Driver Name Role Phone Tre King MD Unavailable Karla Cazares NP Primary Care Provider [phone] sujitseptember Unavailable Reason for Visit * Reason Comments Med Refill Encounter Details Date Type Department Care Team ([facility] st Contact Info) Description 04/05/2025 Refill [facility] [address] [place] [phone] Karla Cazares NP 102 [place] [address] Urinary, incontinence, stress female Social History Tobacco Use Types Packs/Day Years [...] Description 05/13/2025 2:00 PM EST Office Visit [address] [phone] Karla Cazares NP [address] [place] [address] 06/24/2025 2:20 PM EST Office Visit [facility] [address] [place] [phone] Karla Cazares NP [address] [place] [address] documented as of this encounter Visit Diagnoses Diagnosis Urinary, incontinence, stress female Female stress incontinence documented in this encounter Additional Health Concerns Assessment Noted Time PHQ-9 Depression Total Score: 15 025 3:36 PM EDT documented as of this encounter Care Teams Test Car Driver Relationship Specialty Start Date End Date Karla Cazares NP [address] [place] [address] PCP - General Family Medicine 11/16/24 Tre King MD [address] [place] [address] Obstetrics and Gynecology 04/25/24 Nitin Jeannette 03/18/25 documented as of this encounter
--- OUTSIDE RECORDS SUMMARY | 2025-04-07 09:11 | XMS_ITS | Clinical Summary ---
Author Organization [employer] Address [address] [place] [address] 7 [place] [address] Care Team Providers Care Computer Assistant Name Role Phone Tre King MD Unavailable Karla Cazares NP Primary Care Provider [phone] September Unavailable Allergies Active Allergy Reactions Criticality Noted Date Comments Egg Protein-Containing Drug Products High 08/03/2019 Other reaction(s): GI Problems Hydroxyzine 03/31/2025 Other Reaction(s): Falls Lactose 03/31/2025 Lactose Intolerance (Gi) 06/04/2022 [place] 03/31/2025 Other Reaction(s): Decreased kidney function Sulfa Antibiotics Unknown,Other 09/07/2013 Sulfacetamide Sodium-Sulfur Unknown 12/27/2022 Medications * This document contains information received from the source organization and may not represent a complete record from that organization. Mouthwashes (Biotene Dry Mouth) liquidIndications :Sjogren's syndrome, with unspecified organ involvement (CMS/HCC) TAKE 1 SPRAY BY MOUTH IF NEEDED (DRY MOUTH). 237 mL 10 024 Active polyethylene glycol, PEG, 3350 (MiraLax) 17 GM/SCOOP powderIndications :Chronic constipation Take 17 g by mouth in the morning. Dissolve in 4-8 oz of liquid. 527 g 3 025 Active propranolol (Inderal) 20 MG tablet Take 20 mg by mouth in the morning and 20 mg in the evening. Active cetirizine (ZyrTEC) 10 MG tabletIndications :Seasonal allergies Take 1 tablet (10 mg) by mouth Once per day. 90 tablet 3 025 2025 Active cevimeline (Evoxac) 30 MG capsule Take 1 capsule (30 mg) by mouth 3 times daily. 270 capsule 3 025 2025 Active docusate sodium (Colace) 100 MG capsuleIndication s:Chronic constipation Take 1 capsule (100 mg) by mouth Once daily as needed for constipation. 90 capsule 3 Active famotidine (Pepcid) 40 MG tabletIndications :Gastroesophageal reflux disease, unspecified whether esophagitis present Take 1 tablet (40 mg) by mouth if needed in the morning and at bedtime for heartburn or indigestion. 180 tablet 3 Active mirabegron ER (Myrbetriq) 50 MG 24 hr tabletIndications :Urinary, incontinence, stress female Take 1 tablet (50 mg) by mouth Once per day. Do not crush, chew, or split. 90 tablet 1 025 2025 Active fluticasone (Flonase) 50 MCG/ACT [...] MOUTH BEFORE BREAKFAST 90 tablet 1 Active ARIPiprazole (Abilify) 30 MG tablet Take 30 mg by mouth Once per day. Active LORazepam (Ativan) 0.5 MG tablet Take 0.5 mg by mouth every 6 (six) hours if needed for anxiety. 025 2024 Active traZODone (Desyrel) 50 MG tablet Take 100 mg by mouth at bedtime. Active prazosin (Minipress) 1 MG capsuleIndication s:PTSD (post-traumatic stress disorder) Take 1 capsule (1 mg) by mouth at bedtime. 30 capsule 1 025 2024 Active cyclobenzaprine (Flexeril) 5 MG tabletIndications :Acute right-sided low back pain with right-sided sciatica Take 1 tablet (5 mg) by mouth at bedtime for 10 days. 10 tablet 025 2024 Active metroNIDAZOLE (Metrogel) 0.75 % vaginal gel Insert into the vagina at bedtime for 7 days. 70 g 025 2024 Discontinued(R eorder (will not trigger notification to Pharmacy)) zaleplon (Sonata) 10 MG capsule Take 1 capsule (10 mg) by mouth at bedtime. 30 capsule 2 025 2024 Discontinued metroNIDAZOLE (Metrogel) 0.75 % vaginal gel Insert into the vagina at bedtime for 7 days. 70 g 025 2024 Discontinued(T herapy completed) Active Problems Problem Noted Date Diagnosed Date Chronic kidney disease, stage 3a (CMS/HCC) 02/02 Allergic rhinitis due to pollen 01/24/2025 Dysesthesia 01/24/2025 Migraine with aura 01/24/2025 Sense of smell impaired 01/24/2025 Sjogren syndrome, unspecified 01/24/2025 Herpes zoster without complication 12/28/2024 Urinary, incontinence, [...] Plan (01/30/2024 5:02 PM EDT): Followed by [facility] Scrubbing Machine Operator - Dr. King Endometrial biopsy negative 04/2021, indication: AUB September - October 2023: diagnostic hysteroscopy, D&C, polypectomy. Path: endometrium w/o atypia or carcinoma. Endometrial polyp Plan: IUD placement through [facility] [employer] TE[facility] for endometrial polyp, Nova reports currently waiting for when menses starts, although has not started menses since last procedure. Assessment & Plan (12/29/2023 6:59 PM EDT): Followed by [facility] Scrubbing Machine Operator - Dr. King Endometrial biopsy negative 04/2021, indication: AUB September - October 2023: diagnostic hysteroscopy, D&C, polypectomy. Path: endometrium w/o atypia or carcinoma. Endometrial polyp Plan: IUD placement December 2023 through [facility] [employer]IN[employer] CONTAINER TE[employer] for endometrial polyp Dysplasia of cervix, low grade (MADHAV 1) Overview (01/26/2024): Followed by Dr. King - [facility] ALUMINUM CONTAINER TESTER 03/29 Cervical biopsy MADHAV 1 07/22/23: Pap [...] being on wait list for DBT with [facility]. Nova is going through a lot of [...] Bipolar affective disorder, current episode mixe d ([facility]) 12/27/2022 Assessment & Plan (02/23/2024 2:43 PM [...] intervention , [facility] as needed, Comply with medication , [...] Overview (12/30/2022): Continues famotidine 40mg BID PRN Bilateral impacted cerumen 04/05/2021 Overview (03/16/2025): Impacted cerumen, bilateral; Note: Date Diagnosed: 04/05/2021 12:08 PM (H61.23) Irritable bowel syndrome with constipation 08/02 Assessment [...] daily -TSH WNL October 2021 Schizoaffective disorder ([facility]) 09/07/2013 Assessment & Plan (02/21/2025 3:06 PM EDT): - currently stable, seen by psychiatry, doing well on Abiliy Assessment & Plan (12/20/2024 2:57 PM EDT): [...] at bedtime PTSD (post-traumatic stress disorder) 10/07/2012 Assessment & Plan (03/31/2025 12:11 PM EDT): - PTSD with ongoing psychological distress, sleep disturbance, nightmares, and paranoia, exacerbated by half-way environment. - Prescribed prazosin 1 mg nightly for nightmares and sleep quality. Recommended discussion with psychiatric prescriber regarding Abilify dose and prazosin initiation at upcoming appointment in 2 weeks. Encouraged ongoing therapy and self- protection strategies. Orders: prazosin (Minipress) 1 MG capsule; Take 1 capsule (1 mg) by mouth at bedtime. Resolved Problems Problem Noted Date Diagnosed Date [...] use probiotics while taking abs. FU with ALUMINUM CONTAINER TESTER Urinary tract infection with hematuria 02/12/2024 03/11/2024 [...] -LSIL/HPV+ Feb 2021, colposcopy 03/14/2021 -Followed at [facility], reports recent Pelvic US in Jul 2023, with plan for upcoming EMB through [facility] ALUMINUM CONTAINER TE[facility]. Will request records from [facility]. Assessment & Plan (12/30/2022 7:03 PM EDT): -LSIL/HPV+ Feb 2021, colposcopy 03/14/2021 -Followed at [facility], reports last pap within the past year Assessment & Plan (06/04/2022 6:40 PM EST): -LSIL/HPV+ Feb 2021, colposcopy 03/14/2021 -Followed at [facility] Cervical high risk human pap illomavirus (HPV) DNA test positive 08/02/2016 12/29/2023 Depression 10/07/2012 03/08/2024 Encounters * This document contains information received from the source organization and may not represent a complete record from that organization. Date Type Department Care Team Description 04/06/2025 3:00 PM EDT Immunization [address] [phone] Claire Crawford LPN Need for vaccination 04/05/[address] [phone] Karla Cazares NP Urinary, incontinence, stress female 04/04/2025 Travel 03/31/2025 11:00 AM EDT Office Visit [address] [phone] Karla Cazares NP PTSD (post-traumatic stress disorder) (Primary Dx); Need for vaccination; Acute right-sided low back pain with right-sided sciatica 03/30/2025 Patient Outreach [address] [phone] Jeannette Taveras C3 CM outreach call 03/29/[address] [phone] Karla Cazares NP Urinary, incontinence, stress female 03/24/2025 Travel 03/22/[address] [phone] Karla Cazares NP Urinary, incontinence, stress female 03/18/2025 Patient Outreach [facility] () Department [address] [place] [phone] September CM Outreach 03/15/[address] [phone] Karla Cazares NP 03/10/2025 Orders Only GENERIC EXTERNAL DATA DEPARTMENT Provider, Generic External Data 03/09/2025 Travel 03/07/[address] [phone] Karla Cazares NP Seasonal allergies; Chronic constipation; Gastroesophageal reflux disease, unspecified whether esophagitis present; Urinary, incontinence, stress female; Other specified hypothyroidism 02/28/2025 Results Follow-Up [address] [phone] Karla Cazares NP TSH with Reflex to Free T4, Comprehensive Metabolic Panel 02/25/[address] [phone] Karla Cazares NP 02/25/[address] [facility] [address] [place] [address] Mitzi Duffy FNP 02/23/[address] [facility] [address] [place] [address] Mitzi Duffy, VP [employer] Other specified hypothyroidism 02/23/2025 Results Follow-Up [address] [phone] Karla Cazares NP SureSwab Advanced Vaginitis Plus, TMA, Urinalysis, Complete, with Reflex to Culture, Reflex Urine Culture, Culture, Urine, Routine 02/21/2025 2:20 PM EDT Office Visit [address] [phone] Karla Cazares NP Chronic sinusitis, unspecified location (Primary Dx); Irritable bowel syndrome with constipation; Urinary, incontinence, stress female; Other schizoaffective disorders ([facility]); Vaginal itching; Medication management 02/21/[address] [phone] Karla Cazares NP 02/14/2025 Travel 02/10/[address] [facility] [address] [place] [address] Mitzi Duffy FNP Other specified hypothyroidism; Sjogren's syndrome, with unspecified organ involvement (CMS/HCC) 02/08/2025 Orders Only GENERIC EXTERNAL DATA DEPARTMENT Provider, Generic External Data 02/04/[address] [phone] Karla Cazares NP 02/02/2025 8:30 AM EDT Community Care Management [facility] [address] [phone] Taylor Berkowitz 02/01/2025 Travel 02/01/[address] [phone] Karla Cazares NP 01/30/2025 Results Follow-Up [address] [phone] Gina Mora NP SureSwab Advanced Vaginitis Plus, TMA, [facility] Pap and HPV mRNA E6/E7 with Reflex to HPV 16,18/45 01/28/2025 2:20 PM EDT Office Visit [address] [phone] Gina Mora NP Pap smear for cervical cancer screening (Primary Dx); Vaginal discharge 01/27/[address] [phone] Karla Cazares NP 01/26/2025 1:30 PM EDT Community Care Management [facility] [address] [facility] [address] [place] [address] Taylor Berkowitz 01/21/2025 Telephone [facility] [address] [place] [phone] Karla Cazares NP 01/21/2025 Orders Only [address] [phone] Gina Mora NP Bacterial vaginosis (Primary Dx) 01/21/2025 Results Follow-Up [address] [phone] Gina Mora NP POCT urinalysis dipstick manually resulted, Herpes Simplex Virus 1 and 2 (IgG), Type-Specific Antibodies, SureSwab Advanced Vaginitis Plus, TMA 01/21/[address] [phone] Karla Cazares NP 01/21/2025 Travel 01/20/2025 2:45 PM EDT Office Visit [facility] [address] [place] [phone] Kareen Gomes LLD Excessive attrition of teeth (Primary Dx) 01/20/2025 9:20 AM EDT Office Visit [address] [phone] Gina Mora NP Dysuria (Primary Dx); Encounter for screening examination for sexually transmitted infection; Encounter for long-term (current) use of medications; Vaginal discharge; Colon cancer screening; Vaginal itching 01/20/[address] [phone] Gina Mora NP 01/19/2025 Refill [facility] [address] [place] [phone] Karla Cazares NP Polyarthralgia; Gastroesophageal reflux disease, unspecified whether esophagitis present 01/19/2025 Travel 01/13/2025 Travel 01/12/2025 Travel 01/12/2025 Telephone [facility] [address] [phone] Karla Cazares NP 01/12/2025 Telephone [facility] [address] [phone] Karla Cazares NP 01/06/2025 10:40 AM EDT [facility] [address] [place] [phone] May, Adelso, AGNP Sjogren's syndrome with tubulo-interstitial nephropathy (CMS/HCC) (Primary Dx); Vaginal christiano from Last 3 Months Immunizations Immunization Administration Dates Next Due Hep B, adult 04/06/2025 Influenza, seasonal, injectable, preservative fr ee 03/31/2025 Moderna Covid-19 Vaccine 12+ 04/06/2025 PPD Test 04/23/2019 Pneumococcal Conjugate PCV 20 03/31/2025 Td (adult), unspecified 09/11/2010,11/08/2003 Tdap 01/05/2021 Zoster, [...] the past 12 months, has t he [employer], gas, oil or water company threatened to [...] Pressure 116/62 02/21/2025 2:25 PM EDT Pulse 71 03/31/2025 11:21 AM EDT Temperature 36.3 C (97.4 F) 12/23/2024 3:40 PM EDT Respiratory Rate 16 03/08/2024 11:5 1 AM EDT Oxygen Saturation 97% 03/31/2025 11: 21 AM EDT Inhaled Oxygen Concentration - - Weight 99 kg (218 lb 3.2 oz) 03/31/2025 11:21 AM EDT with bag and shoes Height 161 cm (5' 3.39 ) 12/20/2024 2:1 6 PM EDT Body Mass Index 38.18 12/20/2024 2:16 PM EDT Plan of Treatment Upcoming Encounters Date Type Department Care Team (Late st Contact Info) Description 05/13/2025 2:00 PM EST Office Visit [address] [phone] Karla Cazares NP [address] [place] [phone] 06/24/2025 2:20 PM EST Office Visit [address] [phone] Karla Cazares NP [address] [place] [phone] Health Maintenance Due Date Last Done Comments CT Colonography 1972 Dental X-Ray: Full Mouth 1972 FIT DNA/Cologuard 1972 FIT 1970 FOBT 1970 Sigmoidoscopy 1972 Hepatitis A Vaccines (1 of 2 - Risk 2-dose series) 08/18/1991 Colonoscopy 07/23/2023 Colorectal Cancer Screening 07/23/2023 Mammogram 04/21/2025 11/18/2023, 08/07, 10/03/2017 Postponed from 11/17/2024 (Other Patient Reasons) SDOH Screening 04/29/2025 04/29/2024 Hepatitis B Vaccines (2 of 3 - 19+ 3-dose series) 05/04/2025 04/06/2025 Dental Prophylaxis 06/02/2025 11/30/2024 Dental Oral Exam [...] series) 08/18/2047 Zoster Vaccines Completed 01/13/2023, 11/11/2022 HIV Screening Completed 12/28/2024, 02/07, 12/24/2023, Additional history exists Hepatitis C Screening Completed 12/28/2024 , 02/23/2024, 12/24/2023, Additional history exists Influenza Vaccine Discontinued 03/31/2025 Pneumococcal Vaccine: 50+ Years Completed 03/31/2025 COVID-19 Vaccine Completed 04/06/2025, , 06/16/2021, Additional history exists HIB Vaccines Aged Out [...] Procedure Name Priority Date/Time Associated Diagnosis Comments HEMATOXYLIN AND EOSIN STAIN Routine 03/10/2025 3:00 PM EDT COMPREHENSIVE METABOLIC PANEL Routine 02/25/2025 3:58 PM [...] - RESIN Routine 01/20/2025 12:00 AM EDT HEMOGLOBIN A1C Routine 12/28/2024 2:38 PM EDT Screening for diabetes mellitus (DM) HEPATITIS C AB W/REFL TO HCV RNA, QN, PCR Routine 12/28/2024 2:37 PM EDT Routine screening for STI (sexually transmitted infection) HIV 1/2 ANTIGEN/ANTIBODY, FOURTH GENERATION W/RFL Routine 12/28/2024 2:37 PM EDT Routine screening for STI (sexually transmitted infection) COMPREHENSIVE ORAL EVALUATION - NEW OR ESTABLISHED PATIENT Routine 12/01/2024 4:45 PM EDT PROPHYLAXIS - ADULT Routine 11/30/2024 1 0:30 AM EDT BITEWINGS - 4 RADIOGRAPHIC IMAGES Routine 11/30/2024 10:30 AM EDT BI MAMMOGRAM SCREENING TOMOSYNTHESIS BILATERAL Routine 08/25/2023 12:10 PM EDT from Last 3 Months or Most Recently Relevant to Health Maintenance Results * Hematoxylin and Eosin Stain (03/10/2025 3:00 PM EDT) 03/10/2025 3:00 PM EDT 03/11/2025 7:59 AM EDT [facility] - 03/14/2025 3:28 PM EDT ----- ------- Name: Nova Jimenez Age/Sex: 54/F : 1970 Unit#: [id number] Attend Dr: Tre King MD Re03/10/25 Status: [facility] REF Location: [facility] Disch: ----- ------- SPEC : [id number] RECD: 03/11/25 STATUS: LAURI SANABRIA NUM: [id number] NAHUN: 03/10/251500 [facility] DR: Tre King MD ENTERED: 03/11/25 SP TYPE: Surgical OTHR DR: Mitzi Duffy VP [employer] ORDERED: HE Stain/14, Gross Micro L4/5 Diagnosis A. Endometrium, biopsy: - Inactive endometrium; no atypia or hyperplasia identified. - Rare endocervical epithelium within normal limits; no atypia identified. B. Cervix, 6 o'clock, biopsy: Squamous mucosa within normal limits; no endocervical epithelium identified. C. Cervix, 7 o'clock, biopsy: Squamous mucosa within normal limits; no endocervical epithelium identified. D. Cervix, 1 o'clock, biopsy: Squamous mucosa within normal limits; no endocervical epithelium identified. E. Endocervix, curettage: Superficial fragments of endocervical mucosa and squamous epithelium within normal limits; no atypia identified. Clinical History Pre-Op Dx: AUB Post-Op Dx: +HPV squamous cell carcinoma Microscopic Description A-E. Microscopic sections reviewed. Material Received A. EMB B. Cxbx at 6 o'clock C. Cxbx at 7 o'clock' D. Cxbx at 1 o'clock E. ECC Gross Description Received in 5 parts. A. Received in formalin labeled endometrial biopsy are fragments of red-lepe soft tissue mixed with mucus and clotted blood forming in aggregate measuring 1.5 x 1.2 x 0.3 cm which is wrapped in lens paper and entirely submitted for microscopic examination, multiple pieces in cassette A. CONTINUED ON NEXT PAGE ----- ------- Name: Nova Jimenez Age/Sex: 54/F : 1970 Unit#: [id number] Attend Dr: Tre King MD Re03/10/25 Status: DEP REF Location: [facility] Disch: ----- ------- SPEC : [id number] RECD: 03/11/25 STATUS: LAURI SANABRIA NUM: [id number] NAHUN: 03/10/25-[address]: Tre King MD ENTERED: 03/11/2547 SP TYPE: Surgical OTHR DR: Mitzi Duffy [employer] ORDERED: HE Stain/14, Gross Micro L4/5 Gross Description (Continued) B. Received in formalin labeled CX Bx 6 is a fragment of rubbery, white tissue measuring 0.5 cm in greatest dimension and an aggregate of clear mucus measuring 0.6 cm in diameter which is wrapped in lens paper and entirely submitted for microscopic examination, multiple pieces in cassette B. C. Received in formalin labeled CX Bx 7 is a fragment of rubbery, white tissue measuring 0.6 cm in greatest dimension which is wrapped in lens paper and entirely submitted for microscopic examination, 1 piece in cassette C. D. Received in formalin labeled CX Bx 1 is a fragment of rubbery, white tissue measuring 0.6 cm in greatest dimension which is wrapped in lens paper and entirely submitted for microscopic examination, 1 piece in cassette D. E. Received in formalin labeled ECC are scant fragments of pink-white soft tissue mixed with mucus and clotted blood forming an aggregate measuring 0.6 x 0.6 x 0.1 cm which is wrapped in lens paper and entirely submitted for microscopic examination, multiple pieces in cassette E. ([facility]) IHC S/NG Disclaimer NOTE: Unless otherwise stated, all tissue is formalin-fixed and paraffin-embedded. Some or all of the immunohistochemical tests reported herein may have been developed and their performance characteristics determined by [facility]. They have not been cleared or approved by the U.S. Food and Drug Administration (FDA). However, the FDA has determined that such clearance or approval is not necessary. This laboratory is certified under the Clinical Laboratory Improvement Amendments of 1988 (CLIA) as qualified to perform high complexity clinical laboratory testing. Copies To: [place] [address] Tre King MD [facility] Women's Services [address] [place] [address] Drive [address] [place] [address] CONTINUED ON NEXT PAGE ----- ------- Name: Nova Jimenez Age/Sex: 54/F : 1970 Unit#: [id number] Attend Dr: Tre King MD Re03/10/25 Status: DEP REF Location: [facility] Disch: ----- ------- SPEC : [id number] RECD: 03/11/25 STATUS: LAURI SANABRIA NUM: [id number] NAHUN: 03/10/[address] [facility] [address]: Tre King MD ENTERED: 03/11/25 SP TYPE: Surgical OTHR DR: Mitzi Duffy ORDERED: FAISAL /, Gross Micro L4/5 ----- ------- Signed (signature on file) Nikolai Golden MD 03/14/25 1528 ----- ------- END OF REPORT us Generic External Data Provider LAB BLOOD ORDERAB LES Final Result [facility] [address] [place] [phone] * TSH with Reflex to Free T4 (02/25/2025 3:58 PM EDT) TSH w/Reflex to FT4 1.35 mIU/L [facility] Comment: Reference Range > or = 20 Years 0.40-4.50 Ranges First trimester 0.26-2.66 Second trimester 0.55-2.73 Third trimester 0.43-2.91 Blood Venous blood specimen / Unknown 02/25/2025 3:58 PM EDT 02/25/2025 3:59 PM EDT Karla Cazares NP LAB BLOOD ORDERABLES Final Resul t [facility] [address], [place] [address] Emb[employer]ded [employer] [place] [employer] [address] [place] [phone] * (ABNORMAL) Comprehensive Metabolic Panel (02/25/2025 3:58 PM EDT) Glucose 142(H) 65 - 99 mg/dL [facility] Comment: Fasting reference interval For someone without known diabetes, a glucose value >125 mg/dL indicates that they may have diabetes and this should be confirmed with a follow-up test. Urea Nitrogen (BUN) 17 7 - 25 mg/dL [facility] Creatinine, Serum 1.20(H) 0.50 - 1.03 mg/dL [facility] eGFR 54(L) > OR = 60 mL/min/1. 73m2 [facility] BUN/Creatinine Ratio 14 6 - 22 (calc) [facility] Sodium 135 135 - 146 mmol/L [facility] Potassium 3.8 3.5 - 5.3 mmol/L [facility] Chloride 99 98 - 110 mmol/L [facility] Carbon Dioxide 27 20 - 32 mmol/L [facility] Calcium 9.4 8.6 - 10.4 mg/dL [facility] [place] [facility] Protein, Total 7.2 6.1 - 8.1 g/dL [facility] Albumin 4.4 3.6 - 5.1 g/dL [facility] Globulin 2.8 1.9 - 3.7 g/dL (calc) [facility] Albumin/Globuli n Ratio 1.6 1.0 - 2.5 (calc) [facility] [place] [facility] Bilirubin, Total 0.5 0.2 - 1.2 mg/dL [facility] Alkaline Phosphatase 86 37 - 153 U/L [facility] AST 16 10 - 35 U/L [facility] ALT 12 6 - 29 U/L [facility] Blood Venous blood specimen / Unknown 02/25/2025 3:58 PM EDT 02/25/2025 3:59 PM EDT us Karla Cazares NP LAB BLOOD ORDERABLES Final Resul t Performing Organization Address [facility] [place] Co de Phone Number [employer] [address] [place] [address], [place] [phone] Embedded [employer] [place] [facility] [address] [place] [phone] * Reflex Urine Culture (02/21/2025 4:30 PM EDT) REFLEXIVE URINE CULTURE [facility] Comment:CULTURE INDICATED - RESULTS TO FOLLOW 02/21/2025 4:30 PM EDT 02/21/2025 4:31 PM EDT Narrative [facility] - 02/23/2025 1:16 AM EDT FASTING:UNKNOWN FASTING: UNKNOWN us Karla Cazares NP HISTORICAL/NON ORDERABLE LABS Fi nal Result Performing Organization Address [facility] [place] [facility] de Phone Number [address], [place] [address] Embedded [facility] [address] [place] [phone] * (ABNORMAL) Urinalysis, Complete, with Reflex to Culture (02/21/2025 4:30 PM EDT) Color YELLOW YELLOW [facility] Appearance CLEAR CLEAR [facility] Specific Crescent 1.006 1.001 - 1.035 [facility] pH, Urine 6.5 5.0 - 8.0 [facility] Glucose, Urine NEGATIVE NEGATIVE [facility] Bilirubin,Urin e NEGATIVE NEGATIVE [facility] Ketones,Urine NEGATIVE NEGATIVE [facility] Occult Blood,Urine TRACE(A) NEGATIVE [facility] Protein,Urine NEGATIVE NEGATIVE [facility] Nitrite NEGATIVE NEGATIVE [facility] Leukocyte Esterase TRACE(A) NEGATIVE [facility] WBC, UA NONE SEEN < OR = 5 /HPF [facility] RBC, UA NONE SEEN < OR = 2 /HPF [facility] Squamous Epithelial Cells NONE SEEN < OR = 5 /HPF [facility] Bacteria FEW(A) NONE SEEN /HPF [facility] Hyaline Cast NONE SEEN NONE SEEN /LPF [facility] Note [facility] Comment: This urine was analyzed for the presence of WBC, RBC, bacteria, casts, and other formed elements. Only those elements seen were reported. Urine 02/21/2025 4:3 0 PM EDT 02/21/2025 4:31 PM EDT Narrative [facility] - 02/23/2025 1:16 AM EDT FASTING:UNKNOWN FASTING: UNKNOWN Karla Cazares NP LAB URINE ORDERABLES Final Resul t [facility] [address], [place] [address] [facility] [address] [place] [address] * (ABNORMAL) SureSwab?? Advanced Vaginitis Plus, TMA (02/21/2025 4:30 PM EDT) Only the most recent of3 resultswithin the time period is included. SureSwab 9R) ADV Bacterial Vaginosis (BV), TMA POSITIVE(A) NEGATIVE [facility] Christiano Species NOT DETECTED NOT DETECTED Embedded Chat [facility] Chritsiano glabrata NOT DETECTED NOT DETECTED Embedded Chat [facility] Comment: Christiano species C. albicans, C. tropicalis, C. parapsilosis, and/or C. dubliniensis can be detected, but not differentiated, in the Christiano spp. result. Trichomonas vaginalis (TV), TMA NOT DETECTED NOT DETECTED Embedded Chat [facility] Chlamydia trachomatis RNA, TMA, Urogenital NOT DETECTED NOT DETECTED Embedded [employer] [facility] Neisseria gonorrhoeae RNA, TMA, Urogenital NOT DETECTED NOT DETECTED Embedded [employer] [facility] Comment: For additional information, please refer to https://Bioceros.ClickMechanic/faq/WQF431 (This link is being provided for information/ educational purposes only.) Swab Vaginal structure / Unknown 02/21/2025 4:30 PM EDT 02/21/2025 4:31 PM EDT Narrative [facility] - 02/23/2025 1:16 AM EDT FASTING:UNKNOWN FASTING: UNKNOWN us Karla Cazares NP LAB BODY FLUIDS AND STOOLS ORDER BINDU Final Result Performing Organization Address [facility] de Phone Number [facility] [address] [place] [phone] Embedded Chat [facility] [employer] [address] [place] [phone] * Culture, Urine, Routine (02/21/2025 4:30 PM EDT) Culture, Urine, Routine SEE NOTE Embedded [facility] Comment: CULTURE, URINE, ROUTINE Micro Number: [id number] Test Status: Final Specimen Source: Urine Specimen [...] ORDER BINDU Final Result Performing Organization Address [facility] Co de Phone Number [address] [address] Embedded Chat [facility] [address] [place] [address] * Bacterial Vaginosis (02/08/2025 3:30 PM EDT) TRICHOMONAS VAGINALIS DETECTION BY PCR NOT DETECTED Not Detect [facility] BACTERIAL VAGINOSIS DETECTION BY PCR NEGATIVE Negative [facility] Comment:The BV organism targ ets of [...] DETECTION BY PCR NOT DETECTED Not Detect [facility] Christiano glab krusei PCR NOT DETECTED Not Detect [facility] 02/08/2025 3:30 PM EDT 02/08/2025 11:23 PM EDT us Generic External Data Provider LAB MICROBIOLOGY - GENERAL ORDERABLES Final Result [facility] [address] [place] [phone] * Chlamydia/N. Gonorrhoeae RNA, TMA, Urogenitial (02/08/2025 3:30 PM EDT) Pathologist [facility] CT PCR NOT DETECTED Not Detect. [facility] Comment:A not detected test result does [...] psychologicalconsequences. NG PCR NOT DETECTED Not Detect. [facility] Comment:A not detected test result does [...] LAB MICROBIOLOGY - GENERAL ORDERABLES Final Result [facility] [address] [place] [phone] * ThinPrep Imaging Pap and HPV mRNA E6/E7 with Reflex to HPV 16,18/45 (01/28/2025 3:03 PM EDT) Clinical Information: [employer] Comment:CRISTIANOHRVERONIQUE LEEP CIN1 LMP: [facility] Comment:NONE GIVEN Prev. PAP: [facility] Comment:NONE GIVEN Prev. BX: [facility] Comment:NO SOURCE: [facility] Comment:Cervix, Endocervix Statement Of Adequacy: [facility] Comment: Satisfactory for evaluation. Endocervical/transformation zone component absent. Interpretation/Res ult: [employer] Comment: Cytology Results: Negative for intraepithelial lesion or malignancy. COMMENT: [employer] Comment: This Pap test has been evaluated with the ThinPrep(R) Imaging System. Restaurant Greeter: Categ[employer] [facility] Comment: RMM, CT(ASCP) CT screening location: [place] [address] Review Restaurant Greeter: Embedded Chat [facility] Comment: RXB, CT(ASCP) CT screening location: [place] [address] (Always Message) [employer] [facility] Comment: EXPLANATORY NOTE: The Pap is a [...] HPV nRNA E6/E7 Not Detected Not Detected Embedded Chat [facility] Comment: Methodology: Crown Attacher-Mediated Amplification This assay detects E6/E7 viral messenger RNA (mRNA) from 14 high-risk HPV types (16,18,31,33,35,39,45,51,52,56,58,59,66,68). Cervical sources are required for HPV testing. If a vaginal source from a patient who has had a total hysterectomy with removal of cervix was submitted, please contact the testing laboratory for alternative testing options. For additional information, please refer to http://education.ClickMechanic/faq/JRN496y4 (This link if provided for information/ educational purposes only.) Pap Vial 01/28/2025 3:03 PM EDT 01/31/2025 3:28 AM EDT Narrative [facility] - 02/01/2025 1:15 PM EDT SPLIT 01/28/2025 FROM [id number] Gina Mora NP LAB PATHOLOGY ORDERABLES Final R esult MIRIAM Zelaya [address], [place] [address] Embedded [employer] [facility] [address] [place] [address] * (ABNORMAL) POCT urinalysis dipstick manually resulted (01/20/2025 9:28 AM EDT) Color, UA Yellow Clarity, UA Clear Glucose, UA Negative Bilirubin, UA Negative Ketones, UA Negative Spec Grav, UA 1.010 Blood, UA Positive(A) Negative, None Detected pH, UA 7.0 Protein, UA Negative Urobilinogen, UA 0.2 Leukocytes, UA Negative Negative, Rare, Trace Nitrite, UA Negative Negative, None Detected Urine 01/20/2025 9:28 AM EDT [facility] CUT OFF SAWYER LOG POINT OF CARE TEST ENTER/EDIT OR DERABLES Final Result * (ABNORMAL) Herpes Simplex Virus 1 and 2 (IgG), Type-Specific Antibodies (01/20/2025 9:27 AM EDT) HSV 1 IgG, Type Specific Antibody 7.64(H) index Embedded Chat [facility] HSV 2 IgG, Type Specific Antibody <0.90 index Embedded Chat [facility] Comment: Index Interpretation ----- <0.90 Negative 0.90-1.09 [...] screening. For additional information, please refer to http://education.Drillster.BombBomb/faq/AEV830 (This link is being provided for informational/ educational purposes only.) Blood Venous blood specimen / Unknown 01/20/2025 9:27 AM EDT 01/20/2025 9:28 AM EDT Narrative [facility] - 01/21/2025 10:41 AM EDT SPECIMEN COLLECTED AT PROVIDER OFFICE. Gina Byrnes CUT OFF SAWYER LOG LAB BLOOD ORDERABLES Final Resul t [facility] [address], [place] [address] Embedded [facility] [address] [place] [address] * (ABNORMAL) Hemoglobin A1c (12/28/2024 2:38 PM EDT) Pathologist [facility] Hemoglobin A1c 6.0(H) <5.7 % Embedded [facility] Comment: For someone without known diabetes, a [...] EDT 12/28/2024 2:39 PM EDT Adelso May AGNP LAB BLOOD ORDERABLES Final Resul t [facility] [address], [place] [address] Embedded Chat [facility] [address] [place] [address] * Hepatitis C Antibody with Reflex to HCV, RNA, Quantitative, Real-Time PCR (12/28/2024 2:37 PM EDT) [facility] Hepatitis C Antibody NON-REACT CHRIS NON-REACT CHRIS Embedded [facility] Comment: HCV antibody was non-reactive. There is no laboratory evidence of HCV infection. In most cases, no further action is required. However, if recent HCV exposure is suspected, a test for HCV RNA (test code 76250) is suggested. For additional information please refer to http://education.ClickMechanic/faq/TVY95k3 (This link is being provided for informational/ educational purposes only.) Blood Venous blood specimen / Unknown 12/28/2024 2:37 PM EDT 12/28/2024 2:37 PM EDT [facility] AGNP LAB BLOOD ORDERABLES Final Resul t Performing Organization Address [facility] de Phone Number [address] [address] Embedded Chat [facility] [address] [place] [phone] * HIV-1/2 Antigen and Antibodies, Fourth Generation, with Reflexes (12/28/2024 2:37 PM EDT) HIV Final Interpretation Embedded Chat [facility] Comment: HIV Negative HIV-1 antigen and HIV-1/HIV-2 antibodies were not detected. There is no laboratory evidence of HIV infection. HIV Antigen/Antibody, 4th Generation NON-REACT CHRIS NON-REAC TIVE Embedded Chat [facility] Blood Venous blood specimen / Unknown 12/28/2024 2:37 PM EDT 12/28/2024 2:37 PM EDT [facility] LAB BLOOD ORDERABLES Final Resul t Performing Organization Address [facility] de Phone Number [address] [phone] Embedded Chat [facility] [address] [place] [phone] * BI Mammogram Screening Tomosynthesis Bilateral (08/25/2023 12:10 PM EDT) Anatomical Region Laterality Modality Breast Bilateral Mammography 08/25/2023 12:1 0 PM EDT Narrative 09/16/2023 10:55 PM EDT [facility] [address] [place] [address] [place] [address] Mammography Report Signed Patient: Nova Jimenez MR#: [id number] : 1970 Acct:[id number] Age/Sex: 53 / F ADM Date: 08/25/23 Loc: HO.MAMMO Attending Dr: Tre King MD Ordering Physician: Tre King MD Results: 1Negativ e Date of Service: 08/25/23 Follow Up: 1 Year From Orig inal Mammogram Procedure(s): MM tomosynthesis screening BI Accession Number(s): [id number] cc: Mitzi Duffy; Tre King MD EXAMINATION: [...] signed by Ena Barron MD in OV> 09/16/23 2252 DD/ 1210 TD/TT: Linux Vmware Administrator: Procedure Note Donotuseinterpreter, Image - 09/16/2023 [facility] [address] [place], [place] [address] Mammography Report Signed Patient: Nova Jimenez AMR#: [id number] : 1970Acct:[id number] Age/Sex: 53 / FADM Date: 08/25/23 Loc: GABRIELLE Attending Dr: Tre King MD Ordering Physician: Tre King MDResults: 1Negativ e Date of Service: 08/25/23Follow Up: 1 Year From Orig inal Mammogram Procedure(s): MM tomosynthesis screening BI Accession Number(s): [id number] cc: Mitzi Duffy; Tre King MD EXAMINATION: [...] signed by Ena Barron MD in OV> 09/16/23 2252 DD/ 1210 TD/TT: Linux Vmware Administrator: [facility] External Provider IMG BI PROCEDURES Final Result from Last 3 Months or Most Recently Relevant to Health Maintenance Insurance [facility] C3 [facility] MEDICAID STAND ADULT DENTAL - HSN PARTIAL (MEDICAID) Care Teams Computer Assistant Relationship Specialty Start Date End Date Karla Cazares NP [address] [place] [address] PCP - General Family Medicine 11/16/24 Tre King MD [address] [place] [place] [address] Obstetrics and Gynecology 04/25/24 Nitin September 03/18/25
--- OUTSIDE RECORDS SUMMARY | 2025-04-07 09:11 | XMS_ITS | Encounter Summary ---
Author Organization [employer] Address [address] [place] [address] 7 [place] [address] Care Team Providers Care Counseling Aide Name Role Phone Tre King MD Unavailable Karla Cazares NP Primary Care Provider [phone] paolaSeptember Unavailable Encounter Details Date Type Department Care Team ([facility] Contact Info) Description 01/27/2025 Telephone [facility] [address] [place] [address] Karla Cazares NP [address] [place] [address] Social History Tobacco Use Types Packs/Day Years [...] reach out to her. Call back # [phone] documented in this encounter Plan of Treatment Upcoming Encounters Date Type Department Care Team (Late st Contact Info) Description 05/13/2025 2:00 PM EST Office Visit [address] [phone] Karla Cazares NP [address] [place] [phone] 06/24/2025 2:20 PM EST Office Visit [address] [phone] Karla Cazares NP [address] [place] [address] documented as of this encounter Visit Diagnoses Not on filedocumented in this encounter Additional Health Concerns Assessment Noted Time PHQ-9 Depression Total Score: 15 025 3:36 PM EDT documented as of this encounter Care Teams Counseling Aide Relationship Specialty Start Date End Date Karla Cazares NP [address] [place] [address] PCP - General Family Medicine 11/16/24 Tre King MD [address] [place] [address] Obstetrics and Gynecology 04/25/24 Jeannette Taversa 03/18/25 documented as of this encounter
--- OUTSIDE RECORDS SUMMARY | 2025-04-07 09:11 | XMS_ITS | Encounter Summary ---
Author Organization [employer] Address [address] [place] [address] 7 [place] [address] Care Team Providers Care Continuous Dryout Operator Helper Name Role Phone Mitzi Duffy Primary Care Provider [phone] Tre King MD Unavailable Karla Cazares NP Primary Care Provider [phone] NitinSeptember Unavailable Reason for Visit * Reason Comments Med Refill Encounter Details Date Type Department Care Team (Late st Contact Info) Description 04/01/[address] [facility] [address] [place], [place] [phone] Mitzi Duffy FNP [address] [place], [place] [phone] Rhinitis, unspecified type; Sjogren's syndrome, with unspecified [...] your housing situation today? I have abhijit sing 09/05/[address] you li [...] Upcoming Encounters Date Type Department Care Team ([facility] st Contact Info) Description 05/13/2025 2:00 PM EST Office Visit [address] [phone] Karla Cazares NP [address] [place] [address] 06/24/2025 2:20 PM EST Office Visit [address] [phone] Karla Cazares NP [address] [place] [address] documented as of this encounter Visit Diagnoses Diagnosis Rhinitis, unspecified type Sjogren's syndrome, with unspecified organ involvement (CMS/HCC) documented in this encounter Additional Health Concerns Assessment Noted Time PHQ-9 Depression Total Score: 0 12/24/19 24 11:34 AM EDT documented as of this encounter Care Teams Continuous Dryout Operator Helper Relationship Specialty Start Date End Date Mitzi Duffy FNP [address] [place] [address] PCP - General Family Medicine 02/05/22 11/15/24 Karla Cazares NP [address] [place] [address] PCP - General Family Medicine 11/16/24 Tre King MD [address] [place] [address] Obstetrics and Gynecology 04/25/24 Jeannette Taveras 03/18/25 documented as of this encounter
--- OUTSIDE RECORDS SUMMARY | 2025-04-07 09:11 | XMS_ITS | Encounter Summary ---
Author Organization [employer] Address [address] [place] [address] 7 [place] [address] Care Team Providers Care Production Support Developer Name Role Phone Tre King MD Unavailable Karla Cazares NP Primary Care Provider [phone] paolaSeptember Unavailable Encounter Details Date Type Department Care Team ([facility] Contact Info) Description 02/01/2025 Telephone [facility] [address] [place] [address] Karla Cazares NP [address] [place] [address] Social History Tobacco Use Types Packs/Day Years [...] will take to long to get into [facility] so she will go back to her old [employer] in [place] if needed. * Telephone Encounter - Rebecca [...] few days. Scheduled visit with LP at [facility] as she has been seeing her regarding this. * Telephone Encounter - Lila Sol - 02/01/2025 9:54 AM EDT Patient is having reacurring UTI s and thinks she needs to see someone also having period for 1st time in a year at 54 years old [phone] documented in this encounter Plan of Treatment Upcoming Encounters Date Type Department Care Team ([facility] Contact Info) Description 05/13/2025 2:00 PM EST Office Visit [address] [phone] Karla Cazares NP [address] [place] [phone] 06/24/2025 2:20 PM EST Office Visit [address] [phone] Karla Cazares NP [address] [place] [address] documented as of this encounter Visit Diagnoses Not on filedocumented in this encounter Additional Health Concerns Assessment Noted Time PHQ-9 Depression Total Score: 15 025 3:36 PM EDT documented as of this encounter Care Teams Production Support Developer Relationship Specialty Start Date End Date Karla Cazares NP [address] [place] [address] PCP - General Family Medicine 11/16/24 Tre King MD [address] [place] [address] [place] [address] Obstetrics and Gynecology 04/25/24 Nitin September 03/18/25 documented as of this encounter
--- OUTSIDE RECORDS SUMMARY | 2025-04-07 09:11 | XMS_ITS | Encounter Summary ---
Author Organization [employer] Address [address] [place] [address] Care Team Providers Care Antisqueak Chalker Name Role Phone Tre King MD Unavailable Karla Cazares NP Primary Care Provider [phone] paolaSeptember Unavailable Encounter Details Date Type Department Care Team (Latest Contact Info) Description 04/04/2025 Travel Social History Tobacco Use Types Packs/Day [...] Description 05/13/2025 2:00 PM EST Office Visit [address] [phone] Karla Cazares NP [address] [place] [address] 06/24/2025 2:20 PM EST Office Visit [address] [phone] Karla Cazares NP [address] [place] [address] documented as of this encounter Visit Diagnoses Not on filedocumented in this encounter Additional Health Concerns Assessment Noted Time PHQ-9 Depression Total Score: 15 025 3:36 PM EDT documented as of this encounter Care Teams Antisqueak Chalker Relationship Specialty Start Date End Date Karla Cazares NP [address] [place] [address] PCP - General Family Medicine 11/16/24 Tre King MD [address] [place] [address] Obstetrics and Gynecology 04/25/24 Jeannette Taveras 03/18/25 documented as of this encounter
--- OUTSIDE RECORDS SUMMARY | 2025-04-07 09:11 | XMS_ITS ---
Author Organization [employer] [facility] Address [address] [place] [address] [place] [address] Care Team Providers Care Band Splitter Name Role Phone Tre King MD Unavailable Karla Cazares NP Primary Care Provider [phone] Jeannette Taveras Unavailable CM Complex Status:Outreach In Progress (Enrolling) Start date:03/18/2025 Enrollment reason:ADT Feed Case Team Name Relationship Phone September Nitin(Responsible Staff) [phone] Continued Care and Services Coordination
--- OUTSIDE RECORDS SUMMARY | 2025-04-07 09:11 | XMS_ITS | Encounter Summary ---
Author Organization [employer] Address [address] [place] [address] 7 [place] [address] Care Team Providers Care Oyster Preparer Name Role Phone Mitzi Duffy Primary Care Provider [phone] Tre King MD Unavailable Karla Cazares NP Primary Care Provider [phone] NitinSeptember Unavailable Reason for Visit * Reason Comments Med Refill Encounter Details Date Type Department Care Team ([facility] st Contact Info) Description 04/07/2024 Refill [facility] [address] [place], [place] [phone] Mitzi Duffy FNP [address] [place], [place] [phone] Rhinitis, unspecified type Social History Tobacco Use [...] Description 05/13/2025 2:00 PM EST Office Visit [address] [phone] Karla Cazares NP [address] [place] [address] 06/24/2025 2:20 PM EST Office Visit [address] [phone] Karla Cazares NP [address] [place] [address] documented as of this encounter Visit Diagnoses Diagnosis Rhinitis, unspecified type documented in this encounter Additional Health Concerns Assessment Noted Time PHQ-9 Depression Total Score: 0 12/24/19 24 11:34 AM EDT documented as of this encounter Care Teams Oyster Preparer Relationship Specialty Start Date End Date Mitzi Duffy FNP [address] [place] [address] PCP - General Family Medicine 02/05/22 11/15/24 Karla Cazares NP [address] [place] [address] PCP - General Family Medicine 11/16/24 Tre King MD [address] [place] [address] Obstetrics and Gynecology 04/25/24 NitinSeptember 03/18/25 documented as of this encounter
--- OUTSIDE RECORDS SUMMARY | 2025-04-07 09:11 | XMS_ITS | Encounter Summary ---
Author Organization [employer] Address [address] [place] [address] [place] [address] Care Team Providers Care Customer Experience Leader Name Role Phone Tre King MD Unavailable Karla Cazares NP Primary Care Provider [phone] [email or web address] Unavailable Reason for Visit * Reason Comments Med Refill Encounter Details Date Type Department Care Team ([facility] st Contact Info) Description 03/22/2025 [facility]ill [facility] [address] [place] [phone] Karla Cazares NP [address] [place] [address] Urinary, incontinence, stress female Social History Tobacco [...] Telephone Encounter - Aida Stiles [place] - 03/22/2025 9:00 AM EDT Sent on 03/11 for 90 days documented in this encounter Plan of Treatment Upcoming Encounters Date Type Department Care Team (Late st Contact Info) Description 05/13/2025 2:00 PM EST Office Visit [address] [phone] Karla Cazares NP [address] [place] [address] 06/24/2025 2:20 PM EST Office Visit [address] [phone] Karla Cazares NP [address] [place] [address] documented as of this encounter Visit Diagnoses Diagnosis Urinary, incontinence, stress female Female stress incontinence documented in this encounter Additional Health Concerns Assessment Noted Time PHQ-9 Depression Total Score: 15 025 3:36 PM EDT documented as of this encounter Care Teams Customer Experience Leader Relationship Specialty Start Date End Date Karla Cazares NP [address] [place] [address] PCP - General Family Medicine 11/16/24 rTe King MD [address] [place] [address] [place] [address] Obstetrics and Gynecology 04/25/24 Nitin September 03/18/25 documented as of this encounter
--- OUTSIDE RECORDS SUMMARY | 2025-04-07 09:11 | XMS_ITS | Encounter Summary ---
Author Organization [employer] Address [address] [facility] 7 [place] [address] Care Team Providers Care Refined Syrup Operator Name Role Phone Mitzi Duffy Primary Care Provider [phone] Tre King MD Unavailable Karla Cazares NP Primary Care Provider [phone] NitinSeptember Unavailable Reason for Visit * Reason Onset Date Comments FYI 05/14/2023 Encounter Details Date Type Department Care Team (Late st Contact Info) Description 05/14/2023 Telephone [facility] [address] [place] [address] Mitzi Duffy FNP [address] [place], [place] [phone] FYI Social History Tobacco Use Types Packs/Day [...] prescribed PRN by Dr. Arevalo in the [facility] for panic attacks. She states that when [...] her blood pressure. Any questions contact Rosaura [phone] documented in this encounter Plan of Treatment Upcoming Encounters Date Type Department Care Team (Late st Contact Info) Description 05/13/2025 2:00 PM EST Office Visit [address] [phone] Karla Cazares NP [address] [place] [address] 06/24/2025 2:20 PM EST Office Visit [address] [phone] Karla Cazares NP [address] [place] [address] documented as of this encounter Visit Diagnoses Not on filedocumented in this encounter Additional Health Concerns Assessment Noted Time PHQ-9 Depression Total Score: 0 06/04/20 22 3:05 PM EST documented as of this encounter Care Teams Refined Syrup Operator Relationship Specialty Start Date End Date Mitzi Duffy FNP [address] [place] [address] PCP - General Family Medicine 02/05/22 11/15/24 Karla Cazares NP [address] [place] [address] PCP - General Family Medicine 11/16/24 Tre King MD [address] [place] [address] Obstetrics and Gynecology [facility] documented as of this encounter
--- OUTSIDE RECORDS SUMMARY | 2025-04-07 09:11 | XMS_ITS | Encounter Summary ---
Author Organization [employer] Address [address] [facility] 7t [place] [address] Care Team Providers Care Securities Adviser Name Role Phone Mitzi Duffy Primary Care Provider [phone] Tre King MD Unavailable Karla Cazares NP Primary Care Provider [phone] NitinSeptember Unavailable Encounter Details Date Type Department Care Team (Late st Contact Info) Description 04/14/2024 Orders Only [facility] [address] [place], [place] [phone] Mitzi Duffy FNP [address] [place], [place] [phone] Polyarthralgia (Primary Dx) Social History Tobacco Use [...] Description 05/13/2025 2:00 PM EST Office Visit [address] [phone] Karla Cazares NP [address] [place] [address] 06/24/2025 2:20 PM EST Office Visit [address] [phone] Karla Cazares NP [address] [place] [address] documented as of this encounter Visit Diagnoses Diagnosis Polyarthralgia- Primary Pain in joint, multiple sites documented in this encounter Additional Health Concerns Assessment Noted Time PHQ-9 Depression Total Score: 0 12/24/19 24 11:34 AM EDT documented as of this encounter Care Teams Securities Adviser Relationship Specialty Start Date End Date Mitzi Duffy FNP [address] [place] [address] PCP - General Family Medicine 02/05/22 11/15/24 Karla Cazares NP [address] [place] [address] PCP - General Family Medicine 11/16/24 Tre King MD [address] [place] [address] Obstetrics and Gynecology 04/25/24 NitinSeptember 03/18/25 documented as of this encounter
== END 2025-04-07 08:48 | disposition home or self-care (01) ==
LOC: HO.HWS 08:30
PROVIDERS: PCP Radiology Diagnostic Radiology; Visit Provider Obstetrics & Gynecology
DX: R87.810 Cervical high risk human papillomavirus (HPV) DNA test positive (principal); N95.0 Postmenopausal bleeding
CPT/HCPCS: 99213

== ENCOUNTER → 2025-04-07 08:30 | Outpatient (BNVA) | payer MEDICAID, SELFPAY | PROVIDERS: PCP Radiology Diagnostic Radiology; Visit Provider Obstetrics & Gynecology | DX: B97.7 Papillomavirus as the cause of diseases classified elsewhere (principal); N95.0 Postmenopausal bleeding; Z98.890 Other specified postprocedural states | CPT/HCPCS: 99212 ==